=== PATIENT | female | born 1980 | race Caucasian/White ===

== ENCOUNTER 2020-12-11 14:53 | Outpatient (REF) | payer MEDICAID, SELFPAY ==
--- NOTE | ~2020-12-11 | MM_ITS ---
EXAMINATION: MM SCREENING DIGITAL BREAST TOMOSYNTHESIS, BILATERAL CLINICAL INFORMATION: Screening. Asymptomatic. No prior breast imaging. Age 40. No known family history breast cancer. The lifetime risk of breast cancer based on the Tyrer-Cuzick Model is 8%. COMPARISON: None (current study represents initial baseline exam). TECHNIQUE: Digital breast tomosynthesis is performed in both the craniocaudal and mediolateral oblique views along with computer-aided detection (CAD). Synthesized 2D images are generated from the tomosynthesis. FINDINGS: The breasts are heterogeneously dense, which may obscure small masses (ACR BI-RADS breast composition Category c). Breast tissue composition borders on extremely dense. There are no significant masses, abnormal calcifications, or other abnormalities. The skin contours are smooth. MM/MM tomosynthesis screening BI IMPRESSION: No mammographic evidence of malignancy. ASSESSMENT: BI-RADS 1: Negative RECOMMENDATION: Routine annual mammography screening. This patient's information was entered into a reminder system with a target due date for their next mammogram.
== END 2020-12-11 14:54 | disposition home or self-care (01) ==
LOC: HO.MAMMO 14:53
PROVIDERS: Visit Provider Nurse Practitioner
DX: Z12.31 Encounter for screening mammogram for malignant neoplasm of breast (principal)
CPT/HCPCS: 77063; 77067

== ENCOUNTER 2022-06-27 14:25 | Outpatient (REF) | payer MEDICAID, SELFPAY ==
--- NOTE | ~2022-06-27 | MM_ITS ---
EXAMINATION: MM DIAGNOSTIC DIGITAL BREAST TOMOSYNTHESIS, BILATERAL US DIAGNOSTIC ULTRASOUND AXILLA, RIGHT CLINICAL INFORMATION: 41-year-old with tender focal palpable fullness upper right axilla. Patient seen at urgent care Center and with coarse antibiotics. Some drainage with warm compresses. No known family history breast cancer. COMPARISON: Mammography: 12/11/2020 (baseline) TECHNIQUE: Digital breast tomosynthesis is performed in both the craniocaudal and mediolateral oblique views along with computer-aided detection (CAD). Synthesized 2D images are generated from the tomosynthesis. Additional upper right axillary view obtained with symptom marker. Ultrasound ultrasound right axillary is performed targeted to the area of clinical concern. Grayscale imaging and color Doppler are performed without and with harmonics. FINDINGS: The breasts are heterogeneously dense, which may obscure small masses (ACR BI-RADS breast composition Category c). Parenchymal pattern is similar to prior baseline exam and there is no interval mass or architectural abnormality or abnormal calcifications. The breast skin contours are smooth. No coarsening of the Elieser's ligaments. The lower axilla are unremarkable. Additional view upper right axilla demonstrates superficial oval mass approximately 2 cm in greatest dimension at site of palpable concern, approximately 19 cm from nipple. Margins are ill-defined. No gas tracking in soft tissues. Ultrasound right axilla demonstrates a heterogeneous hypoechoic mass at deep dermis with claw sign with skin suggesting intradermal lesion and measuring 2.2 x 1.0 x 1.7 cm. There is increased through-transmission of sound. Prominent surrounding vascularity is noted on color Doppler. Finding most likely represents inflamed sebaceous cyst/epidermal cyst. Results are discussed with the patient at time of visit. Patient is to continue with her provider's management plan and follow-up with primary care/urgent care. If finding is persistent or increasing, then consult with surgeon recommended for excision. MM/MM tomosynthesis diagnostic BI IMPRESSION: Right: -Deep dermal lesion upper right axilla 2.3 cm corresponding to palpable concern with prominent surrounding vascularity, likely inflamed sebaceous cyst/epidermal cyst. -Right breast otherwise unremarkable. Left: -No mammographic evidence of malignancy. ASSESSMENT: BI-RADS 2: Benign RECOMMENDATION: 1. Continue with primary care management. Follow-up with urgent care/primary care. If finding is persistent or increasing, then surgical consult should be considered for excision. 2. Otherwise, routine annual screening mammography. This patient's information was entered into a reminder system with a target due date for their next mammogram.
== END 2022-06-27 14:26 | disposition home or self-care (01) ==
LOC: HO.MAMMO 14:25
PROVIDERS: Visit Provider Emergency Medicine
DX: R22.31 Localized swelling, mass and lump, right upper limb (principal)
CPT/HCPCS: 76642; 77062; 77066

== ENCOUNTER 2023-12-10 18:23 | Outpatient (REF) | payer MEDICAID, SELFPAY | END 2023-12-10 18:24 | disposition home or self-care (01) | LOC: HO.HHCLNP 18:23 | PROVIDERS: Visit Provider Emergency Medicine | DX: M54.50 Low back pain, unspecified (principal) | CPT/HCPCS: 87086 ==

== ENCOUNTER 2023-12-11 14:37 | Outpatient (REF) | payer MEDICAID, SELFPAY ==
--- NOTE | ~2023-12-11 | XR_ITS ---
EXAMINATION: XR LUMBOSACRAL SPINE CLINICAL INFORMATION: Atraumatic left-sided low back pain starting one week ago. COMPARISON: None available. TECHNIQUE: AP and lateral views of the lumbar spine and lateral view of the lumbosacral junction. FINDINGS: Mild left convex curvature. No fracture or malalignment. Medially heights are normal. Small endplate osteophytes at multiple levels. Facet arthropathy is present at L4-L5. Bone mineralization is normal. IUD is present in the central pelvis. XR/XR lumbar spine 2-3V IMPRESSION: 1. No acute fracture in the lumbar spine. 2. Mild left convex lumbar scoliosis. 3. Facet arthropathy at L4-L5.
== END 2023-12-11 14:38 | disposition home or self-care (01) ==
LOC: HO.HHCX 14:37
PROVIDERS: Visit Provider Emergency Medicine
DX: M54.50 Low back pain, unspecified (principal)
CPT/HCPCS: 72100

== ENCOUNTER 2024-05-10 11:28 | Outpatient (REF) | payer MEDICAID, SELFPAY ==
[2024-05-10 14:07] LABS: Anion Gap 14 (12-20); Blood Urea Nitrogen 11 mg/dL (9-16); Calcium 9.6 mg/dL (8.4-10.2); Carbon Dioxide 28 mmol/L (22-29); Chloride 104 mmol/L (96-108); Estimated Glomerular Filt Rate > 60; Glucose Random 83 mg/dL (60-115); Potassium 3.5 mmol/L (3.3-5.1); Sodium 142 mmol/L (135-145)
== END 2024-05-10 11:29 | disposition home or self-care (01) ==
LOC: HO.HHCL 11:28
PROVIDERS: Visit Provider Emergency Medicine
DX: R03.0 Elevated blood-pressure reading, without diagnosis of hypertension (principal)
CPT/HCPCS: 36415; 80048

== ENCOUNTER 2024-07-14 08:57 | Outpatient (REF) | payer MEDICAID, SELFPAY ==
[2024-07-14] MEDS: Barium Sulfate Oral (Berry) 450 ML ORAL.SUSP 900 ML PO (11:17)
[2024-07-14] MEDS: iohexoL 350 MG/ML 100 ML INFUS..BTL 85 ML IV (11:49)
== END 2024-07-14 08:58 | disposition home or self-care (01) ==
LOC: HO.CT 08:57
PROVIDERS: Visit Provider Emergency Medicine
DX: R10.12 Left upper quadrant pain (principal)
CPT/HCPCS: 74177; Q9967

== ENCOUNTER → 2024-07-14 09:01 | Outpatient (BNV) | payer MEDICAID, SELFPAY | PROVIDERS: Visit Provider Radiology Diagnostic Radiology | DX: N83.202 Unspecified ovarian cyst, left side (principal); R16.0 Hepatomegaly, not elsewhere classified | CPT/HCPCS: 74177 ==

== ENCOUNTER 2024-10-11 11:22 | Outpatient (REF) | payer MEDICAID, SELFPAY ==
--- NOTE | ~2024-10-11 | US_ITS ---
CLINICAL HISTORY: 6 cm cystic lesion left adnexa. Dislodged intrauterine contraceptive device US pelvis transabdominal and transvaginal Comparison: 07/14/2024 CT Findings: Uterus measures 10 x 4.1 x 6.4 cm. Low-lying IUD located within the central portion of the lower endometrium (1 of the arms may be located in the subendometrial portion of the myometrium). Otherwise unremarkable myometrium. Endometrium 11 mm thickness. Right ovary 5.4 x 3.3 x 3.2 cm. 3.6 cm likely functional simple right ovarian cyst. 5.1 x 7 x 5.2 cm left adnexal (either paraovarian cyst or exophytic cyst arising from the left ovary) with questionable small eccentric nodular component on the cine clips. Left ovary (without the cyst) measures 0.3 x 2.4 x 1.5 cm. No free fluid. IMPRESSION: Low-lying IUD located within the central portion of the lower endometrium (1 of the arms may be located in the subendometrial portion of the myometrium). 5.1 x 7 x 5.2 cm left adnexal (either paraovarian cyst or exophytic cyst arising from the left ovary) with questionable small eccentric nodular component on the cine clips, corresponds to the cyst seen on the recent CT scan. Further evaluation with MRI recommended. This document has been electronically signed by: Nivia Medrano MD on 10/11/2024 12:40:15
--- OUTSIDE RECORDS SUMMARY | 2024-10-11 11:25 | XMS_ITS | Encounter Summary ---
Author Organization [email or web address] Address [address] [place] [address] Care Team Providers Care Senior Administrative Assistant Name Role Phone Hien Adamily JOSUÉ Primary Care Provider Encounter Details Date Type Department Care Team (Late st Contact Info) Description 09/14/2024 Telephone [facility] [address], [place] [phone] Trent Fang MD [address] [place], [place] [id number] Social History Tobacco Use Types Packs/Day Years Used Date Smoking Tobacco: Never Passive Smoke Exposure: Never Smokeless Tobacco: Never Alcohol Use Standard Drinks/Week Comments Never 0 (1 standard drink = 0.6 oz pur e alcohol) Housing Stability Answer Date Recorded What is your housing situation today? I have ritesh moctezuma 02/17/[address] you li ve. Do you have problems with any of the following? None of the above 02/17/2024 Food Insecurity Answer Date Recorded Within the past 12 months, y ou worried that your food would run out before you got money to buy more: Never True 02/17/2024 Within the past 12 months,th e food you bought just didn't last and you didn't have enough money to get more: Never True Transportation Answer Date Recorded In the past 12 months, has l ack of transportation kept you from medical appts, meetings, work or from getting things needed for daily living? No 02/17/2024 Utilities Answer Date Recorded In the past 12 months, has t he electric, gas, oil or water company threatened to shut off services in your home? No 02/17/2024 Depression Answer Date Recorded Patient Health Questionnaire-2 Score 0 08/20/2022 Internet Access Answer Date Recorded Internet Access Q1 Yes 04/26/2024 Internet Access Q2 Not on file 04/26/2024 Comments Unknown Sex and Gender Information Value Date Recorded Sex Assigned at Female 06/24/2022 10:20 AM EDT Legal Sex Female 10:20 AM EDT Gender Identity Female 06/24/2022 10:20 AM EDT Sexual Orientation Straight 06/24/2022 10 :20 AM EDT documented as of this encounter Miscellaneous Notes * Telephone Encounter - Regina Snell RN - 09/14/2024 5:35 PM EST Images from the original note were not included. TC placed to pt, utilizing [employer] ID: [id number], regarding messages below per Dr. Fang. Pt verbalized understanding and reports she knew she had a cyst but never had follow up. Pt reports she is no longer followed by a COAL TRIMMER MACHINE OPERATOR and agrees to referral with [facility] staff Marissa once US results are back. Pt agrees to go to lab and have urine completed. Pt verbalized understanding regarding referral to GI and reports came for appt with doctor but it was cancelled and never heard back. RN informed high priority message would be sent to appropriate libertarian regarding TP appt for follow upcare. Pt verbalized understanding. No further questions or concerns expressed at this time. Pt to F/ U as needed. RN will forward message to Dr. Fang regarding COAL TRIMMER MACHINE OPERATOR referral and to [facility] Stephany Zamorano regarding TP appt. ----- Message from Trent Fang MD sent at 09/14/2024 4:31 PM EST ----- Please notify [employer] that her abd/pelvis CT scan report was just received (CT scan was done 07/14/2024), read as left ovarian cyst and dislodged IUD in a lower position. I spoke with Marissa Gibson who recommended pelvic US and referral back to her COAL TRIMMER MACHINE OPERATOR who insertedthe IUD. If she has no COAL TRIMMER MACHINE OPERATOR, she'll be referred to Marissa after US results are back. US is ordered. Could she also go to [facility] to give CCMS for urine C&S? Thanks. Aravind Fang MD [facility] Could you also let [employer] know that the CT scan was read a fatty liver, and I'm sending a referralto GI. She has never seen her current PCP (Cassie Adam), and last former PCP visit was January 2023. Could you schedule a transfer patient visit with Cassie? Thanks. Aravind documented in this encounter Plan of Treatment Upcoming Encounters Date Type Department Care Team (Late st Contact Info) Description 11/30/2024 11:00 AM EDT Office Visit [facility] [address], [place] [phone] Cassie Adam NP [address] [place] [address] documented as of this encounter Visit Diagnoses Not on filedocumented in this encounter Care Teams Senior Administrative Assistant Relationship Specialty Start Date End Date Cassie Adam NP [address] [place] [address] PCP - General Family Medicine 10/06/23 documented as of this encounter
--- OUTSIDE RECORDS SUMMARY | 2024-10-11 11:25 | XMS_ITS | Encounter Summary ---
Author Organization [facility] Address [address] [place] [address] [address] [place] [address] Care Team Providers Care Health Specialist Name Role Phone Nehal Bailey [employer]ER MILL TENDER Primary Care Provider [phone] Cassie Adam NP Primary Care Provider [phone] Encounter Details Date Type Department Care Team (Late st Contact Info) Description 08/20/2022 Abstract [facility] [address] [place] [address] [phone] Nehal Bailey FNP [address] [place] [address] [place] [address] Social History Tobacco Use Types Packs/Day Years Used Date Smoking Tobacco: Never Passive Smoke Exposure: Never Smokeless Tobacco: Never Alcohol Use Standard Drinks/Week Comments Never 0 (1 standard drink = 0.6 oz pur e alcohol) Depression Answer Date Recorded Patient Health Questionnaire-2 Score 0 08/20/2022 Comments Unknown Sex and Gender Information Value Date Recorded Sex Assigned at Female 06/24/2022 10:20 AM EDT Legal Sex Female 10:20 AM EDT Gender Identity Female 06/24/2022 10:20 AM EDT Sexual Orientation Straight 06/24/2022 10 :20 AM EDT COVID-19 Exposure Response Date Recorded In the last 10 days, have yo u been in contact with someone who was confirmed or suspected to have Coronavirus/COVID-19? No / Unsure 08/20/2022 1:00 PM EST documented as of this encounter Plan of Treatment Upcoming Encounters Date Type Department Care Team (Late st Contact Info) Description 11/30/2024 11:00 AM EDT Office Visit [facility] [address] [place] [phone] Cassie Adam NP [address] [place] [address] documented as of this encounter Visit Diagnoses Not on filedocumented in this encounter Care Teams Health Specialist Relationship Specialty Start Date End Date Nehal Bailey FNP PCP - General Family Medicine 03/03/22 05/29/23 Cassie Adam NP [address] [place] [address] PCP - General Family Medicine 10/06/23 documented as of this encounter
--- OUTSIDE RECORDS SUMMARY | 2024-10-11 11:25 | XMS_ITS | Clinical Summary ---
Author Organization [employer] Address [address] [place] [address] Care Team Providers Care Word Processor Name Role Phone KiaCassie JOSUÉ Primary Care Provider [phone] Allergies No known active allergies Medications ibuprofen 400 MG tablet Take 1 tablet by mouth in the morning and 1 tablet at noon and 1 tablet in the evening and 1 tablet before bedtime. 2 Active fluticasone (Flonase) 50 MCG/ACT nasal spray Administer 1-2 sprays into affected nostril(s) at bed time. 2 Active acetaminophen (Tylenol) 500 MG tablet Take 2 tablets by mouth in the morning and 2 tablets at noon and 2 tablets in the evening and 2 tablets before bedtime. 2 Active triamcinolone (Kenalog) 0.1 % creamIndication s:Chronic eczema of hand Apply topically if needed in the morning and at bedtime (eczema, hands). Mix tube with container of CeraVe Moisturizing Cream 80 g 1 2 Active acetaminophen (Tylenol) 500 MG tablet Take 2 tablets (1,000 mg) by mouth every 6 (six) hours if needed for moderate pain or fever for up to 25 doses. 50 tablet 4 Active tiZANidine (Zanaflex) 2 MG tablet Take 1 tablet (2 mg) by mouth every 8 (eight) hours if needed for muscle spasms for up to 10 days. 30 tablet 4 Active losartan (Cozaar) 50 MG tablet Take 1 tablet (50 mg) by mouth Once per day. 30 tablet 5 4 05/10/20 25 Active ibuprofen 400 MG tablet Take 1 tablet (400 mg) by mouth every 6 (six) hours if needed for moderate pain or fever for up to 30 doses. 30 tablet 4 Active Active Problems Problem Noted Date Diagnosed Date Hepatomegaly 09/14/2024 Hepatic steatosis 09/14/2024 Preseptal cellulitis of right upper eyelid 01/03 Assessment & Plan (01/03/2023 10:49 AM EDT): Pt w 2 days of eye discomfort and possible had a hordeolum initially w nodular sensation in upper eyelid and woke up this am with right upper eyelid swelling and eye discharge w no concerning systemic symptoms. Denies photofobia, blurry vision , normal PERRLA and EOMI w no pain w eye movements and no pain with eye palpation. No cervical or preauricular LNs Seems orbital infection is unlikely and symptoms are suggestive of preseptal cellulitis -start Augmentin BID x 10 days and ophthalmic ATB -tylenol prn x mild pain and NSAIDS x mod pain-has at home -come at her already schedule apt w her PCP in 5 days to monitor eye -alarm signs and symptoms explained in length to pt in case no improvement of symptoms in next 24 to 48 hours To go to ED Elevated blood pressure reading 01/03/2023 Assessment & Plan (01/03/2023 10:47 AM EDT): Noted elevated BP today at 157/95 and before as well Pt reports she is taking BP at home and never > 140/90 -Advised pt to check daily BP at home and bring readings to her PCP-has apt in 1 week w PCP ( 01/08/2023) -Possible reactive today? Chronic eczema of hand 06/04/2020 Dysmenorrhea 06/04/2020 Encounters Date Type Department Care Team Description 09/14/2024 Telephone [facility] [address], [place] [id number] Trent Ventura MD 09/14/2024 Orders Only [facility] [address] [place] [address] Trent Ventura MD Abnormal CT scan, pelvis (Primary Dx); Left flank pain; Hepatomegaly; Hepatic steatosis from Last 3 Months Immunizations Name Administration Dates Next Due Ashwini Covid-19 Vaccine 12+ 01/13/2021,12/17/19 21 Social History Tobacco Use Types Packs/Day Years [...] Orientation Straight 06/24/2022 10 :20 AM EDT Last Filed Vital Signs Vital Sign Reading Time Taken Comments Blood Pressure 166/103 05/10/2024 9:48 AM EDT Pulse 84 05/10/2024 9:48 AM EDT Temperature 36.6 ??C (97.8 ??F) 05/10/2024 9:48 AM ED T Respiratory Rate 17 05/10/2024 9:48 AM EDT Oxygen Saturation 99% 05/10/2024 9:48 AM EDT Inhaled Oxygen Concentration - - Weight 90.4 kg (199 lb 3.2 oz) 05/10/2024 9:48 A M EDT Height 157.5 cm (5' 2 ) 12/10/2023 5:27 PM EDT Body Mass Index 36.43 12/10/2023 5:27 PM EDT Plan of Treatment Upcoming Encounters Date Type Department Care Team (Late st Contact Info) Description 11/30/2024 11:00 AM EDT Office Visit [facility] [address] [place] [address] Cassie Adam, JOSUÉ [address] [place] [address] Health Maintenance Due Date Last Done Comments Alcohol/Substance Use Screening 1992 Family Planning (PISQ) 1995 DTaP/Tdap/Td Vaccines (1 - Tdap) 1999 Hepatitis A Vaccines (1 of 2 - Risk 2-dose series) 1999 Hepatitis B Vaccines (1 of 3 - 19+ 3-dose series) 1999 Pap Smear 2001 Cervical Cancer Screening 2010 HPV/Cotest 2010 Depression Screening 08/20/2023 08/20/2022, 08/20/20 COVID-19 Vaccine ( season) 2024 01/13/2021, 12/16/2020 Influenza Vaccine (#1) 2024 Mammogram 06/27/2024 06/27/2022, 11/0 10/2021, 06/27/2022, Additional history exists SDOH Screening 02/16/2025 02/17/2024 Tobacco Screening 05/10/2025 05/10/2024 Zoster Vaccines (1 of 2) 2030 RSV Patients and Patients Aged 60 years or older (1 - 1-dose 75+ series) 2055 HIV Screening Completed 02/07/2023 Hepatitis C Screening Completed 02/07/2023 HIB Vaccines Aged Out No longer eligi ble based on patient's age to complete this topic HPV Vaccines Aged Out No longer eligi ble based on patient's age to complete this topic IPV Vaccines Aged Out No longer eligi ble based on patient's age to complete this topic Meningococcal Vaccine Aged Out No brandy giuliana eligible based on patient's age to complete this topic Pneumococcal Vaccine: Pediatrics (0 to 5 Years) and At-Risk Patients (6 to 49) Years) Aged Out No longer eligible based on patient's age to complete this topic RSV under 20 months Aged Out No longe r eligible based on patient's age to complete this topic Rotavirus Vaccines Aged Out No longer eligible based on patient's age to complete this topic Procedures Procedure Name Priority Date/Time Associated Diagnosis Comments CT ABDOMEN PELVIS W CONTRAST Routine 07/14/2024 11:31 AM EST LUQ pain Left flank pain HEPATITIS C AB W/REFL TO HCV RNA, QN, PCR Routine 02/07/2023 10:04 AM EDT Health care maintenance HIV 1/2 ANTIGEN/ANTIBODY, FOURTH GENERATION W/RFL Routine 02/07/2023 10:04 AM EDT Health care maintenance BI US BREAST LIMITED RIGHT Routine 06/27/2022 3:25 PM EDT from Last 3 Months or Most Recently Relevant to Health Maintenance Results * CT Abdomen Pelvis w/ Contrast (07/14/2024 11:31 AM EST) Anatomical Region Laterality Modality Body, Pelvis, Abdomen Computed T omography 07/14/2024 11:3 1 AM EST Narrative 09/10/2024 11:14 AM EST ? [facility] ?[address] ?[place] [address] ? CT Scan Report ? Signed ? Patient: Apple Schwab ?MR#: M ?? [id number] ? : 1980 ?Acct:[id number] ? Age/Sex: 43 / F ?ADM Date: 11/20/24 ? Loc: HO.CT ? Attending Dr: Trent Ventura MD ? Ordering Physician: TRENT VENTURA MD ?? Date of Service: 07/14/24 ?? Procedure(s): CT abdomen pelvis w IV con ?? Accession Number(s): [id number] ? cc: TRENT VENTURA MD ? Report Number: ?? [id number]: Total DLP = ??482.00 mGy-cm ?? EXAMINATION: ?? CT ABDOMEN AND PELVIS WITH CONTRAST ? CLINICAL INFORMATION: ?? Left upper quadrant pain. ?? Left flank pain. ? COMPARISON: ?? None available. ? TECHNIQUE: ?? Multidetector volumetric images were obtained from the superior aspect ?? of the liver through the pubic symphysis following administration 85 mL ?? of Omnipaque 350 intravenous contrast. Sagittal and coronal reformatted ?? images were obtained on the technologist's workstation. ? Oral contrast: 450 cc ? This CT examination was performed using dose optimization techniques as ?? appropriate, variously including the following: ?? *Automated exposure control ?? *Adjustment of mA and/or kV according to patient size (this includes ?? techniques or standardized protocols for targeted exams where dose is ?? matched to indication/reason for exam; i.e. extremities or head) ?? *Use of iterative reconstruction technique ? DLP: 482 mGy-centimeter. ? FINDINGS: ? Submitted for interpretation on September 10, 2024. ? LUNG BASES: No acute airspace disease in the included lungs. ? LIVER, GALLBLADDER, AND BILIARY TREE: ? Liver measures 17 cm with decreased enhancement pattern. Subcentimeter ?? hypodensity in the periphery of the right hepatic lobe adjacent to the ?? falciform ligament. Punctate calcification right hepatic lobe. ?? Portal veins, hepatic veins and intrahepatic portion of the IVC are ?? patent. ?? Gallbladder is fluid-filled nondistended without pericholecystic fluid ?? collection or gallbladder wall thickening. ?? No intrahepatic or extrahepatic biliary ductal dilatation. ? PANCREAS: No focal mass. No main pancreatic ductal dilatation. No ?? peripancreatic fluid collections. ? SPLEEN: 10 cm. No focal lesion. ? ADRENAL GLANDS: No nodular lesions. ? KIDNEYS AND URETERS: ? No hydronephrosis. ?? No gross nephrolithiasis. ?? No enhancing lesion. ? BLADDER: Fluid-filled. ? GASTROINTESTINAL TRACT: ? Abundant stool within the large intestine. Collapsed appearance of the ?? left hemicolon. ?? No intestinal obstruction pattern. ?? Terminal ileum is normal. ?? Appendix is normal and retrocecal. ? ABDOMINAL WALL: Small tiny fat-containing umbilical hernia. ? LYMPH NODES: Nonspecific prominent lymph nodes, retroperitoneum. ? VASCULAR: No aneurysm or dissection abdominal aorta. ? PELVIC VISCERA: There is a 6 cm ovoid shaped fluid density lesion in ?? the left adnexa. ?? There is a T-shaped contraceptive device in a lower position of the ?? uterine cavity extending near the cervix. ? OSSEOUS STRUCTURES: Mild multilevel thoracolumbar spondylosis with a ?? levoconvex curvature apex at L3-4. Rudimentary ribs at T12. ? CT/CT abdomen pelvis w IV con ?? IMPRESSION: ?? 6 cm cystic lesion left adnexa. ?? Dislodged intrauterine contraceptive device in a lower position towards ?? the cervix. ?? Hepatomegaly and steatosis. ? Fleischner guidelines were followed. ? Electronically signed by: ??Deshaun Calixto MD ??09/10/2024 11:12 AM ?? EST RP ? Dictated By: ?Deshaun Snell MD ? Signed By: ?<Electronically signed by Deshaun Lawrence MD in OV> ? 09/10/24 1112 ? DD/ 1131 ? TD/TT: 07/14/24 1149 ? Senior Media Director: ? Procedure Note Jerson, Jeremiah - 09/10/[address] [place] [address] [address] Scan Report Signed Patient: Figueroa Schwab#: M [id number] : 1980Acct:[id number] Age/Sex: 43 / FADM Date: 07/14/24 Loc: HO.CT Attending Dr: Trent Ventura MD Ordering Physician: TRENT VENTURA MD Date of Service: 07/14/24 Procedure(s): CT abdomen pelvis w IV con Accession Number(s): [id number] cc: TRENT VENTURA MD Report Number: [id number]: Total DLP = 482.00 mGy-cm EXAMINATION: CT ABDOMEN AND PELVIS WITH CONTRAST CLINICAL INFORMATION: Left upper quadrant pain. Left flank pain. COMPARISON: None available. TECHNIQUE: Multidetector volumetric images were obtained from the superior aspect of the liver through the pubic symphysis following administration 85 mL of Omnipaque 350 intravenous contrast. Sagittal and coronal reformatted images were obtained on the technologist's workstation. Oral contrast: [address] examination was performed using dose optimization techniques as appropriate, variously including the following: *Automated exposure control *Adjustment of mA and/or kV according to patient size (this includes techniques or standardized protocols for targeted exams where dose is matched to indication/reason for exam; i.e. extremities or head) *Use of iterative reconstruction technique DLP: 482 mGy-centimeter. FINDINGS: Submitted for interpretation on September 10, 2024. LUNG BASES: No acute airspace disease in the included lungs. LIVER, GALLBLADDER, AND BILIARY TREE: Liver measures 17 cm with decreased enhancement pattern. Subcentimeter hypodensity in the periphery of the right hepatic lobe adjacent to the falciform ligament. Punctate calcification right hepatic lobe. Portal veins, hepatic veins and intrahepatic portion of the IVC are patent. Gallbladder is fluid-filled nondistended without pericholecystic fluid collection or gallbladder wall thickening. No intrahepatic or extrahepatic biliary ductal dilatation. PANCREAS: No focal mass. No main pancreatic ductal dilatation. No peripancreatic fluid collections. SPLEEN: 10 cm. No focal lesion. ADRENAL GLANDS: No nodular lesions. KIDNEYS AND URETERS: No hydronephrosis. No gross nephrolithiasis. No enhancing lesion. BLADDER: Fluid-filled. GASTROINTESTINAL TRACT: Abundant stool within the large intestine. Collapsed appearance of the left hemicolon. No intestinal obstruction pattern. Terminal ileum is normal. Appendix is normal and retrocecal. ABDOMINAL WALL: Small tiny fat-containing umbilical hernia. LYMPH NODES: Nonspecific prominent lymph nodes, retroperitoneum. VASCULAR: No aneurysm or dissection abdominal aorta. PELVIC VISCERA: There is a 6 cm ovoid shaped fluid density lesion in the left adnexa. There is a T-shaped contraceptive device in a lower position of the uterine cavity extending near the cervix. OSSEOUS STRUCTURES: Mild multilevel thoracolumbar spondylosis with a levoconvex curvature apex at L3-4. Rudimentary ribs at T12. CT/CT abdomen pelvis w IV con IMPRESSION: 6 cm cystic lesion left adnexa. Dislodged intrauterine contraceptive device in a lower position towards the cervix. Hepatomegaly and steatosis. Fleischner guidelines were followed. Electronically signed by: Deshaun Calixto MD 09/10/2024 11:12 AM EST Dictated By: Deshaun Snell MD Signed By: <Electronically signed by Deshaun Lawrence MDin OV> 09/10/24 1112 DD/ 1131 TD/TT: 07/14/24 1149 Senior Media Director: Trent Ventura MD IMG CT PROCEDURES Edited Result - Final * Hepatitis C Antibody with Reflex to HCV, RNA, Quantitative, Real-Time PCR (02/07/2023 10:04 AM EDT) Hepatitis C Antibody NON-REACT MIRA NON-REACT MIRA [employer] Index <0.02 <1.00 [employer] Comment: HCV antibody was non-reactive. There is no laboratory evidence of HCV infection. In most cases, no further action is required. However, if recent HCV exposure is suspected, a test for HCV RNA (test code 58840) is suggested. For additional information please refer to http://education.Looker/faq/IFE44v7 (This link is being provided for informational/ educational purposes only.) Blood Venous blood specimen / Unknown 02/07/2023 10:04 AM EDT 02/07/2023 10:04 AM EDT Narrative [facility] - 02/17/2023 6:29 PM EDT FASTING:YES FASTING: YES Nehal Bailey [employer] LAB BLOOD ORDERABLES Final Result [facility] [address], [place] [address] [employer] [place] [address] [place] [address] * HIV-1/2 Antigen and Antibodies, Fourth Generation, with Reflexes (02/07/2023 10:04 AM EDT) HIV Antigen/Antibody, 4th Generation NON-REAC TIVE NON-REAC TIVE [employer] Comment: HIV-1 antigen and HIV-1/HIV-2 antibodies were not detected. There is no laboratory evidence of HIV infection. PLEASE NOTE: This information has been disclosed to you from records whose confidentiality may be protected by state law. ??If your state requires such protection, then the state law prohibits you from making any further disclosure of the information without the specific written consent of the person to whom it pertains, or as otherwise permitted by law. A general authorization for the release of medical or other information is NOT sufficient for this purpose. ?? For additional information please refer to http://education.Looker/faq/RVQ986 (This link is being provided for informational/ educational purposes only.) The performance of this assay has not been clinically validated in patients less than 2 years old. Blood Venous blood specimen / Unknown 02/07/2023 10:04 AM EDT 02/07/2023 10:04 AM EDT Narrative [facility] - 02/17/2023 6:29 PM EDT FASTING:YES FASTING: YES Nehal Bailey [employer] LAB BLOOD ORDERABLES Final Result [facility] [address], [place] [address] [employer] [place] [address] [place] [address] * BI US Breast Limited Right (06/27/2022 3:25 PM EDT) Anatomical Region Laterality Modality Breast Right Ultrasound 06/27/2022 3:25 PM EDT Narrative 09/20/2022 2:34 PM EST ? [facility] [place] ? [address] ?[place] [address] ? Ultrasound Report ? Signed with Addenda ? Patient: Joshua,Apple ?MR#: [id number] ?? [id number] ? : 1980 ?Acct:[id number] ? Age/Sex: 41 / F ?ADM Date: 06/27/22 ? Loc: HO.MAMMO ? Attending Dr: Trent Ventura MD ? Ordering Physician: TRENT VENTURA MD ?? Date of Service: 06/27/22 ?? Procedure(s): US breast RT limited ?? Accession Number(s): [id number] ? cc: TRENT VENTURA MD ?ADDENDUM ?? ADDENDUM: ?? Results and recommendation called to medical claims specialist (Kaylee) for Dr. ?? Leoncio on 06/28/2022. ? Addendum Dictated By: ?Luis Chen MD ? Addendum Signed By: ? <Electronically signed by Luis Chen MD in OV> ?06/28/22 1503 ?? Addendum Cosigned By: ? DD/ /13/1499 ? TD/TT: / ? EXAMINATION: ?? MM DIAGNOSTIC DIGITAL BREAST TOMOSYNTHESIS, BILATERAL ?? US DIAGNOSTIC ULTRASOUND AXILLA, RIGHT ? CLINICAL INFORMATION: ? 41-year-old with tender focal palpable fullness upper right axilla. ?? Patient seen at urgent care Center and with coarse antibiotics. Some ?? drainage with warm compresses. No known family history breast cancer. ? COMPARISON: ?? Mammography: 12/11/2020 (baseline) ? TECHNIQUE: ?? Digital breast tomosynthesis is performed in both the craniocaudal and ?? mediolateral oblique views along with computer-aided detection (CAD). ?? Synthesized 2D images are generated from the tomosynthesis. ??Additional ?? upper right axillary view obtained with symptom marker. ? Ultrasound ultrasound right axillary is performed targeted to the area ?? of clinical concern. Grayscale imaging and color Doppler are performed ?? without and with harmonics. ? FINDINGS: ?? The breasts are heterogeneously dense, which may obscure small masses ?? (ACR BI-RADS breast composition Category c). ? Parenchymal pattern is similar to prior baseline exam and there is no ?? interval mass or architectural abnormality or abnormal calcifications. ?? The breast skin contours are smooth. No coarsening of the Elieser's ?? ligaments. The lower axilla are unremarkable. ? Additional view upper right axilla demonstrates superficial oval mass ?? approximately 2 cm in greatest dimension at site of palpable concern, ?? approximately 19 cm from nipple. Margins are ill-defined. No gas ?? tracking in soft tissues. ? Ultrasound right axilla demonstrates a heterogeneous hypoechoic mass at ?? deep dermis with claw sign with skin suggesting intradermal lesion and ?? measuring 2.2 x 1.0 x 1.7 cm. There is increased through-transmission ?? of sound. Prominent surrounding vascularity is noted on color Doppler. ?? Finding most likely represents inflamed sebaceous cyst/epidermal cyst. ? Results are discussed with the patient at time of visit. Patient is to ?? continue with her provider's management plan and follow-up with primary ?? care/urgent care. If finding is persistent or increasing, then consult ?? with surgeon recommended for excision. ? US/US breast RT limited ?? IMPRESSION: ?? Right: ?? -Deep dermal lesion upper right axilla 2.3 cm corresponding to palpable ?? concern with prominent surrounding vascularity, likely inflamed ?? sebaceous cyst/epidermal cyst. ?? -Right breast otherwise unremarkable. ? Left: ?? -No mammographic evidence of malignancy. ? ASSESSMENT: ? BI-RADS 2: Benign ? RECOMMENDATION: ?? 1. Continue with primary care management. Follow-up with urgent ?? care/primary care. If finding is persistent or increasing, then ?? surgical consult should be considered for excision. ? 2. Otherwise, routine annual screening mammography. ? This patient's information was entered into a reminder system with a ?? target due date for their next mammogram. ? Dictated By: ?Luis Chen MD ? Signed By: ?<Electronically signed by Luis Chen MD in OV> ?06/27/22 1650 ? DD/ 1525 ? TD/TT: ? Senior Media Director: DAVILA ? Procedure Note Jerson, Image - 09/20/2022 [facility] [address] [place] [address] Dr. Dela Cruz, JOSUE [address] Ultrasound Report Signed with Crystal Patient: Figueroa Lewis#: [id number] : 1980Acct:[id number] Age/Sex: 41 / FADM Date: 06/27/22 Loc: [facility] Attending Dr: Trent Ventura MD Ordering Physician: TRENT VENTURA MD Date of Service: 06/27/22 Procedure(s): US breast RT limited Accession Number(s): [id number] cc: TRENT VENTURA MD ADDENDUM ADDENDUM: Results and recommendation called to medical claims specialist (Kaylee) for Dr. Ventura on 06/28/2022. Addendum Dictated By: Luis Chen MD Addendum Signed By: <Electronically signed by Luis Kenney MD in OV> 06/28/22 1503 Addendum Cosigned By: DD/ /13/1499 TD/TT: / EXAMINATION: MM DIAGNOSTIC DIGITAL BREAST TOMOSYNTHESIS, BILATERAL US DIAGNOSTIC ULTRASOUND AXILLA, RIGHT CLINICAL INFORMATION: 41-year-old with tender focal palpable fullness upper right axilla. Patient seen at urgent care Center and with coarse antibiotics. Some drainage with warm compresses. No known family history breast cancer. COMPARISON: Mammography: 12/11/2020 (baseline) TECHNIQUE: Digital breast tomosynthesis is performed in both the craniocaudal and mediolateral oblique views along with computer-aided detection (CAD). Synthesized 2D images are generated from the tomosynthesis. Additional upper right axillary view obtained with symptom marker. Ultrasound ultrasound right axillary is performed targeted to the area of clinical concern. Grayscale imaging and color Doppler are performed without and with harmonics. FINDINGS: The breasts are heterogeneously dense, which may obscure small masses (ACR BI-RADS breast composition Category c). Parenchymal pattern is similar to prior baseline exam and there is no interval mass or architectural abnormality or abnormal calcifications. The breast skin contours are smooth. No coarsening of the Elieser's ligaments. The lower axilla are unremarkable. Additional view upper right axilla demonstrates superficial oval mass approximately 2 cm in greatest dimension at site of palpable concern, approximately 19 cm from nipple. Margins are ill-defined. No gas tracking in soft tissues. Ultrasound right axilla demonstrates a heterogeneous hypoechoic mass at deep dermis with claw sign with skin suggesting intradermal lesion and measuring 2.2 x 1.0 x 1.7 cm. There is increased through-transmission of sound. Prominent surrounding vascularity is noted on color Doppler. Finding most likely represents inflamed sebaceous cyst/epidermal cyst. Results are discussed with the patient at time of visit. Patient is to continue with her provider's management plan and follow-up with primary care/urgent care. If finding is persistent or increasing, then consult with surgeon recommended for excision. US/US breast RT limited IMPRESSION: Right: -Deep dermal lesion upper right axilla 2.3 cm corresponding to palpable concern with prominent surrounding vascularity, likely inflamed sebaceous cyst/epidermal cyst. -Right breast otherwise unremarkable. Left: -No mammographic evidence of malignancy. ASSESSMENT: BI-RADS 2: Benign RECOMMENDATION: 1. Continue with primary care management. Follow-up with urgent care/primary care. If finding is persistent or increasing, then surgical consult should be considered for excision. 2. Otherwise, routine annual screening mammography. This patient's information was entered into a reminder system with a target due date for their next mammogram. Dictated By: Luis Chen MD Signed By: <Electronically signed by Luis Chen MD in OV> 06/27/22 1650 DD/ 1525 TD/TT: Senior Media Director: [facility] External Provider IMG US PROCEDURES Edited Result - Final from Last 3 Months or Most Recently Relevant to Health Maintenance Insurance [facility] C3 Care Teams Word Processor Relationship Specialty Start Date End Date Cassie Adam NP [address] [place] [phone] PCP - General Family Medicine 10/06/23
--- OUTSIDE RECORDS SUMMARY | 2024-10-11 11:25 | XMS_ITS | Encounter Summary ---
Author Organization [facility] Address [address] [facility] 7t [place] [address] Care Team Providers Care Social Staff Worker Name Role Phone Kia Cassie JOSUÉ Primary Care Provider [phone] Reason for Referral * Consultation (Routine) - Authorized Specialty Diagnoses / Procedures Referred By Danielle reynolds Referred To Contact Gastroenterology Diagnoses Hepatomegaly Hepatic steatosis Trent Fang MD [address] [place] [address] Phone: tel: fax: [address] Phone: tel: fax: Referral ID Status Reason Start Date Expiration Date Visits Requested Visits Authorized [id number] Authorized Specialty Services Required 09/14/2024 09/14/2025 6 6 * Imaging (Urgent) - Authorized Specialty Diagnoses / Procedures [facility] Referred To Contact Radiology Diagnoses Abnormal CT scan, pelvis Procedures US Pelvis Transvaginal Trent Fang MD [address] [place] [address] Phone: tel: fax: [address] Phone: tel: fax: Referral ID Status Reason Start Date Expiration Date V isits Requested Visits Authorized [id number] Authorized 09/14/2024 09/14/2025 1 1 * Imaging (Urgent) - Authorized Specialty Diagnoses / Procedures Referred By Contac t Referred To Contact Radiology Diagnoses Abnormal CT scan, pelvis Procedures Us Pelvis complete Trent Fang MD [address] [place] [address] Phone: tel: fax: [facility] [address] [place] [address] Phone: tel: fax: Referral ID Status Reason Start Date Expiration Date V isits Requested Visits Authorized [id number] Authorized 09/14/2024 09/14/2025 1 1 Encounter Details Date Type Department Care Team (Late st Contact Info) Description 09/14/2024 Orders Only [facility] [address] [place] [address] [phone] Trent Fang MD [address] [place], [place] [phone] Abnormal CT scan, pelvis (Primary Dx); Left flank pain; Hepatomegaly; Hepatic steatosis Social History Tobacco Use Types Packs/Day Years [...] AM EDT documented as of this encounter Plan of Treatment Upcoming Encounters Date Type Department Care Team (Late st Contact Info) Description 11/30/2024 11:00 AM EDT Office Visit [facility] [address] [place] [address] Cassie Adam NP 230 [place] [address] Scheduled Orders Name Type Priority Associated Diagnoses Orde r Schedule Us Pelvis complete Imaging Urgent Abnormal CT scan, pelvis Expected: 09/14/2024, Expires: 09/14/2025 US Pelvis Transvaginal Imaging Urgent Abnormal CT scan, pelvis Expected: 09/14/2024, Expires: 09/14/2025 Culture, Urine, Routine Microbiology Routine Left flank pain Expected: 09/14/2024 (Approximate), Expires: 09/14/2025 Scheduled Referrals Name Type Priority Associated Diagnoses Order Schedule Referral to Gastroenterology Outpatient Referral Routine Hepatomegaly Hepatic steatosis Expected: 09/14/2024 (Approximate), Expires: 09/14/2025 documented as of this encounter Visit Diagnoses Diagnosis Abnormal CT scan, pelvis- Primary Left flank pain Abdominal pain, unspecified site Hepatomegaly Hepatic steatosis Other chronic nonalcoholic liver disease documented in this encounter Care Teams Social Staff Worker Relationship Specialty Start Date End Date Cassie Adam NP [address] [place] [address] PCP - General Family Medicine 10/06/23 documented as of this encounter
== END 2024-10-11 11:23 | disposition home or self-care (01) ==
LOC: HO.US 11:22
PROVIDERS: Visit Provider Emergency Medicine
DX: R93.5 Abnormal findings on diagnostic imaging of other abdominal regions, including retroperitoneum (principal)
CPT/HCPCS: 76830; 76856

== ENCOUNTER → 2024-10-11 11:24 | Outpatient (BNV) | payer MEDICAID, SELFPAY | PROVIDERS: Visit Provider Radiology Diagnostic Radiology | DX: N83.202 Unspecified ovarian cyst, left side (principal) | CPT/HCPCS: 76830; 76856 ==

== ENCOUNTER 2024-10-30 12:42 | Outpatient (REF) | payer MEDICAID, SELFPAY ==
--- NOTE | ~2024-10-30 | MR_ITS ---
EXAMINATION: MR PELVIS WITHOUT THEN WITH IV CONTRAST HISTORY: ADNEXAL CYST. TECHNIQUE: Axial T1, axial fat suppressed T2, and sagittal and coronal T2-weighted MR images of the pelvis were obtained. Subsequently, axial fat-suppressed T1-weighted images were obtained before and after the intravenous administration of 9 mm Gadavist. Postcontrast sagittal fat-suppressed T1-weighted images were also obtained. COMPARISON: Correlation is made with a pelvic ultrasound dated 10/11/[address] of the pelvis dated 07/14/2024. FINDINGS: There is a 9 mm subserosal fibroid at the fundus of the uterus. There are multiple nabothian cysts in the cervix. An IUD is noted in the lower uterine segment. The right ovary measures 1.3 x 2.5 x 3.1 cm and is unremarkable in appearance, demonstrating multiple small follicles. There is a 7.1 x 5.2 x 4.9 cm cystic structure in the left adnexa which appears to be arising from the ovary. There is a thin septation at the posterior aspect of the cyst and mild wall thickening and enhancement at the lateral aspect of the cyst. No internal nodular components are identified. The remainder of the ovary measures 3.1 x 2.1 x 2.3 cm and demonstrates multiple follicles. The urinary bladder is collapsed. There is no pelvic lymphadenopathy or significant free fluid. The visualized bones demonstrate normal signal intensity. MR/MR pelvis wo/w con IMPRESSION: 1. 7.1 x 5.2 x 4.9 cm left adnexal cyst which appears to be arising from the ovary. There is a thin posterior septation and mild wall thickening and enhancement of the lateral wall. Neoplasm is not excluded, and laparoscopy should be considered. 2. 9 mm subserosal fibroid. IUD in the lower uterine segment. Electronically signed by: Bola Wills MD 11/02/2024 07:33 AM EDT
--- OUTSIDE RECORDS SUMMARY | 2024-10-30 12:48 | XMS_ITS | Encounter Summary ---
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 Encounter Details Date Type Department Care Team (Latest Contact Info) Description 10/26/2024 9:00 AM EST Office Visit [facility] [address] [place], [place] [phone] Marissa Gibson CNM [address] [place], [place] [phone] Mechanical breakdown of intrauterine contraceptive device, subsequent encounter (Primary Dx); Ovarian mass, left Social History Tobacco Use Types Packs/Day Years [...] Access Q2 Not on file 04/26/2024 Comments No Sex and Gender Information Value Date Recorded Sex Assigned at Female 06/24/2022 10:20 AM EDT Legal Sex Female 10:20 AM EDT Gender Identity Female 06/24/2022 10:20 AM EDT Sexual Orientation Straight 06/24/2022 10 :20 AM EDT documented as of this encounter Last Filed Vital Signs Vital Sign Reading Time Taken Comments Blood Pressure 164/96 10/26/2024 9:15 AM EST Pulse 77 10/26/2024 9:15 AM EST Temperature 36.3 ??C (97.4 ??F) 10/26/2024 9:15 AM ES T Respiratory Rate 16 10/26/2024 9:15 AM EST Oxygen Saturation 98% 10/26/2024 9:15 AM EST Inhaled Oxygen Concentration - - Weight 90.4 kg (199 lb 6.4 oz) 10/26/2024 9:15 A M EST Height 157.5 cm (5' 2 ) 10/26/2024 9:15 AM EST Body Mass Index 36.47 10/26/2024 9:15 AM EST documented in this encounter Progress Notes * Marissa Gibson CNM - 10/26/2024 9:00 AM EST Subjective Patient ID: Apple Figueroa is a 44 y.o. female who presents for DIRECTOR OF TRAINING visit Low lying, possibly embedded ? Mirena IUD and 7cm ovarian vs paraovarian mass noted on ultrasound. MRI ordered to better characterize ovarian mass. Has appointment for this 10/30 at 1pm. Would like to defer exam today due to menses. Mirena inserted 6-7y ago for menstrual suppression. Still gets monthly menses, heavy x 2 days, bleeds for a total of 6-7 days. Has tubal ligation as well. Notes some RLQ cramping with menses. Last pap many years ago. Review of Systems Objective BP (!) 164/96 (BP Location: Left arm, Patient Position: Sitting, BP Cuff Size: Large adult long) Pulse 77 Temp 97.4 ??F (36.3 ??C) (Temporal) Resp 16 Ht 5' 2 (1.575 m) Wt 199 lb 6.4 oz (90.4 kg) SpO2 98% BMI 36.47 kg/m?? Physical Exam Constitutional: Appearance: Normal appearance. Neurological: Mental Status: She is alert. Psychiatric: Mood and Affect: Mood normal. Behavior: Behavior normal. Assessment/Plan Diagnoses and all orders for this visit: Mechanical breakdown of intrauterine contraceptive device, subsequent encounter Would like to return for IUD removal. Will schedule after MRI appointment, so we can hopefully review those results at visit. Seek care urgently if heavy bleeding/pelvic pain. Feels well today. Will do pap at next appointment as well. Ovarian mass, left MRI scheduled for 10/30. Will review at next visit, and refer to DIRECTOR OF TRAINING if indicated. documented in this encounter Plan of Treatment Upcoming Encounters Date Type Department Care Team (Late st Contact Info) Description 11/01/2024 9:30 AM EDT Office Visit [facility] [address] [place] [address] Marissa Gibson CNM [address] [place] [address] 11/30/2024 11:00 AM EDT Office Visit [facility] [address] [place] [address] Cassie Adam NP [address] [place] [address] documented as of this encounter Visit Diagnoses Diagnosis Mechanical breakdown of intrauterine contraceptive device, subsequent encounter- Primary Ovarian mass, left Cervical cancer screening- Primary Screening for malignant neoplasm of the cervix Encounter for IUD removal documented in this encounter Care Teams Microstrategy Architect Relationship Specialty Start Date End Date Cassie Adam NP 230 [place] [address] PCP - General Family Medicine 10/06/23 documented as of this encounter
--- OUTSIDE RECORDS SUMMARY | 2024-10-30 12:48 | XMS_ITS | Encounter Summary ---
Author Organization [email or web address] [facility] Address [address] [place] [address] 7t [place] [address] Care Team Providers Care Interior Specialist Name Role Phone Nehal Bailey [employer]IC Primary Care Provider [phone] Cassie Adam NP Primary Care Provider [phone] Encounter Details Date Type Department Care Team (Late st Contact Info) Description 08/20/2022 Abstract [facility] [address] [place] [address] [phone] Nehal Bailey FNP [address] [place] [address] Dept [place] [address] Social History Tobacco Use Types Packs/Day Years [...] Description 11/01/2024 9:30 AM EDT Office Visit [facility] [address] [place] [address] [phone] Marissa Gibson, ZAKM [address] [place], [place] [phone] 11/30/2024 11:00 AM EDT Office Visit [facility] [address] [place], [place] [phone] Cassie Adam NP [address] [place], [place] [phone] documented as of this encounter Visit Diagnoses Not on filedocumented in this encounter Care Teams Interior Specialist Relationship Specialty Start Date End Date Nehal Bailey FNP PCP - General Family Medicine 03/03/22 05/29/23 Cassie Adam NP [address] [place], [place] [phone] PCP - General Family Medicine 10/06/23 documented as of this encounter
--- OUTSIDE RECORDS SUMMARY | 2024-10-30 12:48 | XMS_ITS | Encounter Summary ---
Author Organization [employer] Address [address] 7t [place] [address] Care Team Providers Care Roping Machine Tender Name Role Phone Hien Adamily JOSUÉ Primary Care Provider [phone] Encounter Details Date Type Department Care Team (Late st Contact Info) Description 10/12/2024 Telephone [facility] 230 [place], [place] [phone] Trent Fang MD [address] [place], [place] [phone] Social History Tobacco Use Types Packs/Day Years [...] encounter Miscellaneous Notes * Telephone Encounter - Etta Robison RN - 10/12/2024 6:08 PM EST ----- Message from Trent Fang MD sent at 10/12/2024 4:23 PM EST ----- Please notify Apple that her pelvic US from was read as possibly malpositioned IUD and left ovarian cyst with further evaluation of cyst by MRI recommended by radiologist. I sent a referral to Marissa Gibson and ordered the pelvic MRI. Thanks. Aravind BLANCO placed to pt and the message above was discussed. Patient in agreement with plan of care. documented in this encounter Plan of Treatment Upcoming Encounters Date Type Department Care Team (Late st Contact Info) Description 11/01/2024 9:30 AM EDT Office Visit [facility] [address] [place] [address] Marissa Gbison CNM 230 [place] [address] 11/30/2024 11:00 AM EDT Office Visit [facility] [address] [place] [address] Cassie Adam NP 230 [place] [address] documented as of this encounter Visit Diagnoses Not on filedocumented in this encounter Care Teams Roping Machine Tender Relationship Specialty Start Date End Date Cassie Adam NP [address] [place] [address] PCP - General Family Medicine 10/06/23 documented as of this encounter
--- OUTSIDE RECORDS SUMMARY | 2024-10-30 12:48 | XMS_ITS | Clinical Summary ---
Author Organization [facility] Address [address] 7t [place] [address] Care Team Providers Care Currency Counter Name Role Phone KiaCassie JOSUÉ Primary Care Provider [phone] Allergies No known active allergies Medications ibuprofen [...] Encounters Date Type Department Care Team Description 10/26/2024 9:00 AM EST Office Visit [facility] [address] [place] [address] Marissa Gibson CNM Mechanical breakdown of intrauterine contraceptive device, subsequent encounter (Primary Dx); Ovarian mass, left 10/26/2024 Travel 10/13/2024 Travel 10/12/2024 Telephone [facility] [address] [place] [address] Trent Ventura MD 10/12/2024 Orders Only [facility] [address] [place] [address] Trent Ventura MD IUD migration, initial encounter (Primary Dx); Adnexal cyst 09/14/2024 Telephone [facility] [address] [place] [address] Trent Ventura MD 09/14/2024 Orders Only [facility] [address] [place] [address] Trent Ventura MD Abnormal CT scan, pelvis (Primary Dx); Left flank pain; Hepatomegaly; Hepatic steatosis from Last 3 Months Immunizations Name Administration Dates Next Due Moderna Covid-19 Vaccine 12+ 01/13/2021,12/17/19 21 Social History [...] Mass Index 36.47 10/26/2024 9:15 AM EST Plan of Treatment Upcoming Encounters Date Type Department Care Team (Late st Contact Info) Description 11/01/2024 9:30 AM EDT Office Visit [facility] [address] [place] [address] Marissa Gibson, NUNO 230 [place] [address] 11/30/2024 11:00 AM EDT Office Visit [facility] [address] [place] [address] Cassie Adam, JOSUÉ 230 [place] [address] Health Maintenance Due Date Last Done Comments Alcohol/Substance Use Screening 1992 DTaP/Tdap/Td Vaccines (1 - Tdap) 1999 Hepatitis A Vaccines (1 of 2 - Risk 2-dose series) 1999 Hepatitis B Vaccines (1 of 3 - 19+ 3-dose series) 1999 Pap Smear 2001 Cervical Cancer Screening 2010 HPV/Cotest 2010 Depression Screening 08/20/2023 08/20/2022, 08/20/20 COVID-19 Vaccine ( season) 2024 01/13/2021, 12/16/2020 Influenza Vaccine (#1) 2024 Mammogram 06/27/2024 06/27/2022, 1110/2021, 06/27/2022, Additional history exists SDOH Screening 02/16/2025 02/17/2024 Family Planning (PISQ) 10/26/2025 10/26/2024 Tobacco Screening 10/26/2025 10/26/2024 Zoster Vaccines (1 of 2) 2030 RSV [...] Procedure Name Priority Date/Time Associated Diagnosis Comments US PELVIS TRANSVAGINAL Urgent 10/11/2024 12:[address] scan, pelvis HEPATITIS C AB W/REFL TO HCV RNA, QN, PCR Routine 02/07/2023 10:04 AM EDT Health care maintenance HIV 1/2 ANTIGEN/ANTIBODY, FOURTH GENERATION W/RFL Routine 02/07/2023 10:04 AM EDT Health care maintenance BI US BREAST LIMITED RIGHT Routine 06/27/2022 3:25 PM EDT from Last 3 Months or Most Recently Relevant to Health Maintenance Results * US Pelvis Transvaginal (10/11/2024 12:40 PM EST) Anatomical Region Laterality Modality Pelvis Ultrasound 10/11/2024 12:4 0 PM EST Narrative 10/11/2024 12:41 PM EST ? [facility] ?[address] ?[place] [address] ? Ultrasound Report ? Signed ? Patient: Apple Schwab ?MR#: M ?? [id number] ? : 1980 ?Acct:[id number] ? Age/Sex: 44 / F ?ADM Date: 10/11/24 ? Loc: HO.US ? Attending Dr: Trent Ventura MD ? Ordering Physician: TRENT VENTURA MD ?? Date of Service: 10/11/24 ?? Procedure(s): US pelvic and transvaginal ?? Accession Number(s): [id number] ? cc: TRENT VENTURA MD ? CLINICAL HISTORY: 6 cm cystic lesion left adnexa. Dislodged intrauterine contraceptive device ? US pelvis transabdominal and transvaginal ? Comparison: 07/14/2024 CT ? Findings: ? Uterus measures 10 x 4.1 x 6.4 cm. ?? Low-lying IUD located within the central portion of the lower endometrium ?? (1 of the arms may be located in the subendometrial portion of the ?? myometrium). Otherwise unremarkable myometrium. ?? Endometrium 11 mm thickness. ? Right ovary 5.4 x 3.3 x 3.2 cm. 3.6 cm likely functional simple right ?? ovarian cyst. ?? 5.1 x 7 x 5.2 cm left adnexal (either paraovarian cyst or exophytic cyst ?? arising from the left ovary) with questionable small eccentric nodular ?? component on the cine clips. Left ovary (without the cyst) measures 0.3 x ?? 2.4 x 1.5 cm. ? No free fluid. ? IMPRESSION: ?? Low-lying IUD located within the central portion of the lower endometrium ?? (1 of the arms may be located in the subendometrial portion of the ?? myometrium). ?? 5.1 x 7 x 5.2 cm left adnexal (either paraovarian cyst or exophytic cyst ?? arising from the left ovary) with questionable small eccentric nodular ?? component on the cine clips, corresponds to the cyst seen on the recent CT ?? scan. Further evaluation with MRI recommended. ? This document has been electronically signed by: Nivia Medrano MD on ?? 10/11/2024 12:40:15 ? Dictated By: ?Nivia Medrano MD ? Signed By: ?<Electronically signed by Nivia Medrano MD in OV> ? 10/11/24 1241 ? DD/ 1240 ? TD/TT: 10/11/24 1240 ? Extrusion Technician: ? Procedure Note Donotuseinterpreter, Image - 10/11/2024 [place] [id number] Ultrasound Report Signed Patient: Figueroa Schwab#: M [id number] : 1980Acct:[id number] Age/Sex: 44 / FADM Date: 10/11/24 Loc: HO.US Attending Dr: Trent Ventura MD Ordering Physician: TRENT VENTURA MD Date of Service: 10/11/24 Procedure(s): US pelvic and transvaginal Accession Number(s): [id number] cc: TRENT VENTURA MD CLINICAL HISTORY: 6 cm cystic lesion left adnexa. Dislodged intrauterinecontraceptive device US pelvis transabdominal and transvaginal Comparison: 07/14/2024 CT Findings: Uterus measures 10 x 4.1 x 6.4 cm. Low-lying IUD located within the central portion of the lower endometrium (1 of the arms may be located in the subendometrial portion of the myometrium). Otherwise unremarkable myometrium. Endometrium 11 mm thickness. Right ovary 5.4 x 3.3 x 3.2 cm. 3.6 cm likely functional simple right ovarian cyst. 5.1 x 7 x 5.2 cm left adnexal (either paraovarian cyst or exophytic cyst arising from the left ovary) with questionable small eccentric nodular component on the cine clips. Left ovary (without the cyst) measures 0.3 x 2.4 x 1.5 cm. No free fluid. IMPRESSION: Low-lying IUD located within the central portion of the lower endometrium (1 of the arms may be located in the subendometrial portion of the myometrium). 5.1 x 7 x 5.2 cm left adnexal (either paraovarian cyst or exophytic cyst arising from the left ovary) with questionable small eccentric nodular component on the cine clips, corresponds to the cyst seen on the recent CT scan. Further evaluation with MRI recommended. This document has been electronically signed by: Nivia Medrano MD on 10/11/2024 12:40:15 Dictated By: Nivia Medrano MD Signed By: <Electronically signed by Nivia Medrano MD in OV> 10/11/24 1241 DD/ 1240 TD/TT: 10/11/24 1240 Extrusion Technician: us Trent Ventura MD [facility] US PROCEDURES Final Result * Hepatitis C Antibody with Reflex to HCV, RNA, Quantitative, Real-Time PCR (02/07/2023 10:04 AM EDT) Hepatitis C Antibody NON-REACT MIRA NON-REACT MIRA [employer] Index <0.02 <1.00 S[employer]Sum Comment: HCV antibody was non-reactive. There is no laboratory evidence of HCV infection. In most cases, no further action is required. However, if recent HCV exposure is suspected, a test for HCV RNA (test code 22041) is suggested. For additional information please refer to http://education.Cognio/faq/LRT51a1 (This link is being provided for informational/ educational purposes only.) Blood Venous blood specimen / Unknown 02/07/2023 10:04 AM EDT 02/07/2023 10:04 AM EDT Narrative [facility] - 02/17/2023 6:29 PM EDT FASTING:YES FASTING: YES us Nehal Bailey [facility] LAB BLOOD ORDERABLES Final Result [facility] [address], [place] [address] [employer] [facility] [address] [place] [address] * HIV-1/2 Antigen and Antibodies, Fourth Generation, with Reflexes (02/07/2023 10:04 AM EDT) HIV Antigen/Antibody, 4th Generation NON-REAC TIVE NON-REAC TIVE [employer] Comment: HIV-1 antigen and HIV-1/HIV-2 antibodies were [...] ?? For additional information please refer to http://education.Cognio/faq/EFK932 (This link is being provided for informational/ educational purposes only.) The performance of this assay has not been clinically validated in patients less than 2 years old. Blood Venous blood specimen / Unknown 02/07/2023 10:04 AM EDT 02/07/2023 10:04 AM EDT Narrative [facility] - 02/17/2023 6:29 PM EDT FASTING:YES FASTING: YES Nehal Bailey PEDIATRIC CLINICAL NURSE SPECIALIST LAB BLOOD ORDERABLES Final Result [facility] [address], [place] [address] [employer] [facility] [address] [place] [address] * BI US Breast Limited Right (06/27/2022 3:25 PM EDT) Anatomical Region Laterality Modality Breast Right Ultrasound 06/27/2022 3:25 PM EDT Narrative 09/20/2022 2:34 PM EST ? [facility] ? [address] ?[place] [address] ? Ultrasound Report ? Signed with Addenda ? Patient: Joshua,Apple ?MR#: [id number] ?? 7 ? : 1980 ?Acct:[id number] ? Age/Sex: 41 / F ?ADM Date: 11/03/22 ? Loc: HO.MAMMO ? Attending Dr: Trent Ventura MD ? Ordering Physician: TRENT VENTURA MD ?? Date of Service: 06/27/22 ?? Procedure(s): US breast RT limited ?? Accession Number(s): [id number] ? cc: TRENT VENTURA MD ?ADDENDUM ?? ADDENDUM: ?? Results and recommendation called to medical secretary receptionist (Kaylee) for Dr. ?? Leoncio on 06/28/2022. [...] 1650 ? DD/ 1525 ? TD/TT: ? Extrusion Technician: DAVILA ? Procedure Note Jerson, Image - 09/20/2022 [facility] [address] [place] [address] Dr. Dela Cruz, JOSUE [address] Ultrasound Report Signed with Crystal Patient: Figueroa Lewis#: [id number] : 1980Acct:[id number] Age/Sex: 41 / FADM Date: 06/27/22 Loc: HO.MAMMO Attending Dr: Trent Ventura MD Ordering Physician: TRENT VENTURA MD Date of Service: 06/27/22 Procedure(s): US breast RT limited Accession Number(s): [id number] cc: TRENT VENTURA MD ADDENDUM ADDENDUM: Results and recommendation called to medical secretary receptionist (Kaylee) for Dr. Ventura on 06/28/2022. Addendum [...] in OV> 06/27/22 1650 DD/ 1525 TD/TT: Extrusion Technician: DAVILA [facility] External Provider IMG US PROCEDURES Edited Result - Final from Last 3 Months or Most Recently Relevant to Health Maintenance Insurance [facility] C3 Care Teams Currency Counter Relationship Specialty Start Date End Date Cassie Adam NP [address] [place] [address] PCP - General Family Medicine 10/06/23
--- OUTSIDE RECORDS SUMMARY | 2024-10-30 12:48 | XMS_ITS | Encounter Summary ---
Author Organization [employer] Address [address] 7t [place] [address] Care Team Providers Care Lumber Marker Name Role Phone Cassie Adam JOSUÉ Primary Care Provider [phone] Encounter Details Date Type Department Care Team (Latest Contact Info) Description 10/26/2024 Travel Social History Tobacco Use Types Packs/Day Years [...] Description 11/01/2024 9:30 AM EDT Office Visit [facility] [address] [place] [address] Marissa Gibson CNM 230 [place] [address] 11/30/2024 11:00 AM EDT Office Visit [facility] [address] [place] [address] Cassie Adam NP 230 [place] [address] documented as of this encounter Visit Diagnoses Not on filedocumented in this encounter Care Teams Lumber Marker Relationship Specialty Start Date End Date Cassie Adam NP [address] [place] [address] PCP - General Family Medicine 10/06/23 documented as of this encounter
--- OUTSIDE RECORDS SUMMARY | 2024-10-30 12:48 | XMS_ITS | Encounter Summary ---
Author Organization [employer] Address [address] 7[address] [place] [address] Care Team Providers Care Digital Color Press Operator Name Role Phone Cassie Adam JOSUÉ Primary Care Provider [phone] Encounter Details Date Type Department Care Team (Latest Contact Info) Description 10/13/2024 Travel Social History Tobacco Use Types Packs/Day [...] Description 11/01/2024 9:30 AM EDT Office Visit [facility] [address] [place] [address] Marissa Gibson CNM [address] [place] [address] 11/30/2024 11:00 AM EDT Office Visit [facility] [address] [place] [address] Cassie Adam NP [address] [place] [address] documented as of this encounter Visit Diagnoses Not on filedocumented in this encounter Care Teams Digital Color Press Operator Relationship Specialty Start Date End Date Cassie Adam NP [address] [place] [address] PCP - General Family Medicine 10/06/23 documented as of this encounter
--- OUTSIDE RECORDS SUMMARY | 2024-10-30 12:48 | XMS_ITS | Encounter Summary ---
Author Organization [employer] [facility] Address [address] [place] [address] 7t [place] [address] Care Team Providers Care Director Of Application Development Name Role Phone Cassie Adam NP Primary Care Provider [phone] Reason for Referral * Imaging (Routine) - Authorized Specialty Diagnoses / Procedures Referred By Danielle reynolds Referred To Contact Radiology Diagnoses Adnexal cyst Procedures MR Pelvis w/ and w/o Contrast Trent Fang MD [address] [place], [place] Phone: tel: fax: [address] Phone: tel: fax: Referral ID Status Reason Start Date Expiration Date V isits Requested Visits Authorized [id number] Authorized 10/12/2024 10/12/2025 1 1 * Consultation (Routine) - Closed Specialty Diagnoses / Procedures Referred By Danielle t Referred To Contact Midwifery Diagnoses IUD migration, initial encounter Adnexal cyst Trent Fang MD [address] [place], [place] Phone: tel: fax: Marissa Gibson CNM [address] [place] [address] Phone: tel: fax: Referral ID Status Reason Start Date Expiration Date V isits Requested Visits Authorized [id number] Closed Consult and Treat 10/12/2024 10/12/2025 1 1 Encounter Details Date Type Department Care Team (Late Contact Info) Description 10/12/2024 Orders Only [facility] [address] [place] [address] Trent Fang MD [address] [place] [address] IUD migration, initial encounter (Primary Dx); Adnexal cyst Social History Tobacco Use Types Packs/Day Years Used Date Smoking Tobacco: Never Passive Smoke Exposure: Never Smokeless Tobacco: Never Alcohol Use Standard Drinks/Week Comments Never 0 (1 standard drink = 0.6 oz pur e alcohol) Housing Stability Answer Date Recorded What is your housing situation today? I have riteshksenia moctezuma 02/17/[address] you [...] Description 11/01/2024 9:30 AM EDT Office Visit [facility] [address] [place] [address] Marissa Gibson CNM [address] [place] [address] 11/30/2024 11:00 AM EDT Office Visit [facility] [address] [place] [address] Cassie Adam NP [address] [place] [address] Scheduled Orders Name Type Priority Associated Diagnoses Orde r Schedule MR Pelvis w/ and w/o Contrast Imaging Routine Adnexal cyst Expected: 10/12/2024, Expires: 10/12/2025 Scheduled Referrals Name Type Priority Associated Diagnoses Order Schedule Referral to Gynecology (Marissa) Outpatient Referral Routine IUD migration, initial encounter Adnexal cyst Expected: 10/12/2024 (Approximate), Expires: 10/12/2025 documented as of this encounter Visit Diagnoses Diagnosis IUD migration, initial encounter- Primary Adnexal cyst Cervical cancer screening- Primary Screening for malignant neoplasm of the cervix Encounter for IUD removal documented in this encounter Care Teams Director Of Application Development Relationship Specialty Start Date End Date Cassie Adam NP [address] [place] [address] PCP - General Family Medicine 10/06/23 documented as of this encounter
[2024-10-30] MEDS: gadobutroL 10 ML VIAL IVPUSH (13:30)
== END 2024-10-30 12:43 | disposition home or self-care (01) ==
LOC: HO.MRI 12:42
PROVIDERS: Visit Provider Emergency Medicine
DX: N94.9 Unspecified condition associated with female genital organs and menstrual cycle (principal)
CPT/HCPCS: 72197; A9585

== ENCOUNTER → 2024-10-30 12:55 | Outpatient (BNV) | payer MEDICAID, SELFPAY | PROVIDERS: Visit Provider Radiology Diagnostic Radiology | DX: N83.202 Unspecified ovarian cyst, left side (principal); D25.2 Subserosal leiomyoma of uterus | CPT/HCPCS: 72197 ==

== ENCOUNTER 2024-11-01 17:15 | Outpatient (REF) | payer MEDICAID, SELFPAY ==
--- OUTSIDE RECORDS SUMMARY | 2024-11-01 18:25 | XMS_ITS | Encounter Summary ---
Author Organization [employer] Address [address] 7t [place] [address] Care Team Providers Care Cosmetic Surgeon Name Role Phone Cassie Adam JOSUÉ Primary Care Provider [phone] Encounter Details Date Type Department Care Team [...] Description 11/30/2024 11:00 AM EDT Office Visit [facility] [address] [place] [address] Cassie Adam NP [address] [place] [address] documented as of this encounter Visit Diagnoses Not on filedocumented in this encounter Care Teams Cosmetic Surgeon Relationship Specialty Start Date End Date Cassie Adam NP [address] [place] [address] PCP - General Family Medicine 10/06/23 documented as of this encounter
--- OUTSIDE RECORDS SUMMARY | 2024-11-01 18:25 | XMS_ITS | Encounter Summary ---
Author Organization [employer] Address [address] [place] [address] Care Team Providers Care Tram Inspector Name Role Phone Cassie Adam JOSUÉ Primary Care Provider [phone] Encounter Details Date Type Department Care Team [...] 11:00 AM EDT Office Visit [facility] [address] [place] [address] Cassie Adam NP [address] [place] [address] documented as of this encounter Visit Diagnoses Not on filedocumented in this encounter Care Teams Tram Inspector Relationship Specialty Start Date End Date Cassie Adam NP [address] [place] [address] PCP - General Family Medicine 10/06/23 documented as of this encounter
--- OUTSIDE RECORDS SUMMARY | 2024-11-01 18:25 | XMS_ITS | Clinical Summary ---
Author Organization [employer] Address [address] [place] [address] Care Team Providers Care Change Management Expert Name Role Phone KiaCassie JOSUÉ Primary Care Provider [phone] Allergies No known active allergies Medications ibuprofen [...] Encounters Date Type Department Care Team Description 11/01/2024 9:30 AM EDT Office Visit [facility] [address] [place] [address] Marissa Gibson CNM Cervical cancer screening (Primary Dx); Encounter for IUD removal; Axillary mass, right 11/01/2024 Travel 10/26/2024 9:00 AM EST Office Visit [facility] [address] [place] [address] Marissa Gibson, NUNO Mechanical breakdown of intrauterine contraceptive device, subsequent encounter (Primary Dx); Ovarian mass, left 10/26/2024 Travel 10/13/2024 Travel 10/12/2024 Telephone [facility] [address] [place] [address] Trent Ventura MD 10/12/2024 Orders Only [facility] [address] [place] [address] Trent Ventura MD IUD migration, initial encounter (Primary Dx); Adnexal cyst 09/14/2024 Telephone [facility] [address] [place] [address] Trent Ventura MD 09/14/2024 Orders Only [facility] [address] [place] [address] Trent Ventura MD Abnormal CT scan, pelvis [...] Sign Reading Time Taken Comments Blood Pressure 149/97 11/01/2024 9:30 AM EDT Pulse 81 11/01/2024 9:30 AM EDT Temperature 36.3 ??C (97.3 ??F) 11/01/2024 9:30 AM ED T Respiratory Rate 20 11/01/2024 9:30 AM EDT Oxygen Saturation 98% 11/01/2024 9:30 AM EDT Inhaled Oxygen Concentration - - Weight 91.2 kg (201 lb) 11/01/2024 9:30 AM EDT Height 157.5 cm (5' 2 ) 11/01/2024 9:30 AM EDT Body Mass Index 36.76 11/01/2024 9:30 AM EDT Plan of Treatment Upcoming Encounters Date Type Department Care Team (Late st Contact Info) Description 11/30/2024 11:00 AM EDT Office Visit [facility] [address] [place] [address] Cassie Adam NP [address] [place] [address] Health Maintenance Due Date Last Done Comments [...] SDOH Screening 02/16/2025 02/17/2024 Family Planning (PISQ) 11/01/2025 11/01/2024 Tobacco Screening 11/01/2025 11/01/2024 Zoster Vaccines (1 of 2) 2030 RSV [...] EST Narrative 10/11/2024 12:41 PM EST ? [facility] ?[address] ?[place] [address] ? Ultrasound Report ? Signed ? Patient: Apple Schwab ?MR#: [id number] ?? [id number] ? : 1980 ?Acct:[id number] ? Age/Sex: 44 / F ?ADM Date: 10/11/24 ? Loc: HO.US ? Attending Dr: Trent Ventura MD ? Ordering Physician: TRENT VENTURA MD ?? Date of Service: 10/11/24 ?? Procedure(s): US pelvic and transvaginal ?? Accession Number(s): [id number] ? cc: TRENT VENTURA MD ? CLINICAL [...] DD/ 1240 ? TD/TT: 10/11/24 1240 ? Kettle Cook: ? Procedure Note Donotuseinterpreter, Image - 10/11/2024 [place] [address] Ultrasound Report Signed Patient: Figueroa Schwab#: [id number] : 1980Acct:[id number] Age/Sex: 44 / FADM Date: 10/11/24 Loc: HO.US Attending Dr: Trent Ventura MD Ordering Physician: TRENT VENTURA MD Date of Service: 10/11/24 Procedure(s): US pelvic and transvaginal Accession Number(s): [id number] cc: TRENT VENTURA MD CLINICAL HISTORY: 6 [...] 10/11/24 1241 DD/ 1240 TD/TT: 10/11/24 1240 Kettle Cook: Trent Ventura MD [facility] PROCEDURES Final Result * Hepatitis C Antibody with Reflex to HCV, RNA, Quantitative, Real-Time PCR (02/07/2023 10:04 AM EDT) Hepatitis C Antibody NON-REACT MIRA NON-REACT MIRA [facility] Index <0.02 <1.00 [facility] Comment: HCV antibody was non-reactive. There is no laboratory evidence of HCV infection. In most cases, no further action is required. However, if recent HCV exposure is suspected, a test for HCV RNA (test code 75268) is suggested. For additional information please refer to http://education.Quickcue/faq/NZS86b7 (This link is being provided for informational/ educational purposes only.) Blood Venous blood specimen / Unknown 02/07/2023 10:04 AM EDT 02/07/2023 10:04 AM EDT Narrative [facility] - 02/17/2023 6:29 PM EDT FASTING:YES FASTING: YES Nehal Bailey TAVERN CAR ATTENDANT LAB BLOOD ORDERABLES Final Result [facility] [address], [place] [address] [facility] [address] [place] [address] * HIV-1/2 Antigen and Antibodies, Fourth Generation, with Reflexes (02/07/2023 10:04 AM EDT) HIV Antigen/Antibody, 4th Generation NON-REAC TIVE NON-REAC TIVE [facility] Comment: HIV-1 antigen and HIV-1/HIV-2 antibodies were [...] ?? For additional information please refer to http://education.Quickcue/faq/ILE684 (This link is being provided for informational/ educational purposes only.) The performance of this assay has not been clinically validated in patients less than 2 years old. Blood Venous blood specimen / Unknown 02/07/2023 10:04 AM EDT 02/07/2023 10:04 AM EDT Narrative [facility] - 02/17/2023 6:29 PM EDT FASTING:YES FASTING: YES Nehal Bailey TAVERN CAR ATTENDANT LAB BLOOD ORDERABLES Final Result [facility] [address], [place] [address] [facility] [address] [place] [address] * BI US Breast Limited Right (06/27/2022 3:25 PM EDT) Anatomical Region Laterality Modality Breast Right Ultrasound 06/27/2022 3:25 PM EDT Narrative 09/20/2022 2:34 PM EST ? [facility] ? [address] ?[place] [address] ? Ultrasound Report ? Signed with Addenda ? Patient: Joshua,Apple ?MR#: [id number] ?? [id number] ? : 1980 ?Acct:[id number] ? Age/Sex: 41 / F ?ADM Date: 11/03/22 ? Loc: HO.MAMMO ? Attending Dr: Trent Ventura MD ? Ordering Physician: TRENT VENTURA MD ?? Date of Service: 06/27/22 ?? Procedure(s): US breast RT limited ?? Accession Number(s): [id number] ? cc: TRENT VENTURA MD ?ADDENDUM ?? ADDENDUM: ?? Results and recommendation called to medical housekeeper (Kaylee) for Dr. ?? Leoncio on 06/28/2022. [...] 1650 ? DD/ 1525 ? TD/TT: ? Kettle Cook: DAVILA ? Procedure Note Jerson, Image - 09/20/2022 [facility] [address] [place], [place] [address] Ultrasound Report Signed with Crystal Patient: Figueroa Lewis#: [id number] : 1980Acct:[id number] Age/Sex: 41 / FADM Date: 06/27/22 Loc: MAMMO Attending Dr: Trent Ventura MD Ordering Physician: TRENT VENTURA MD Date of Service: 06/27/22 Procedure(s): US breast RT limited Accession Number(s): [id number] cc: TRENT VENTURA MD ADDENDUM ADDENDUM: Results and recommendation called to medical housekeeper (Kaylee) for Dr. Ventura on 06/28/2022. Addendum [...] in OV> 06/27/22 1650 DD/ 1525 TD/TT: Kettle Cook: DAVILA [facility] External Provider IMG US PROCEDURES Edited Result - Final from Last 3 Months or Most Recently Relevant to Health Maintenance Insurance [facility] C3 Care Teams Change Management Expert Relationship Specialty Start Date End Date Cassie Adam NP [address] [place] [address] PCP - General Family Medicine 10/06/23
--- OUTSIDE RECORDS SUMMARY | 2024-11-01 18:25 | XMS_ITS | Encounter Summary ---
Author Organization [employer] [facility] Address [address] [place] [address] 7t [place] [address] Care Team Providers Care Supervisor Hand Workers Name Role Phone Cassie Adam NP Primary Care Provider [phone] Reason for Referral * Imaging (Routine) - Authorized Specialty Diagnoses / Procedures Referred By Danielle reynolds Referred To Contact Radiology Diagnoses Adnexal cyst Procedures MR Pelvis w/ and w/o Contrast Trent Fang MD [address] [place], [place] Phone: tel: fax: [address] Phone: tel: fax: Referral ID Status Reason Start Date Expiration Date V isits Requested Visits Authorized [id number] Authorized 10/12/2024 10/12/2025 1 1 * Consultation (Routine) - Closed Specialty Diagnoses / Procedures Referred By Danielle t Referred To Contact Midwifery Diagnoses IUD migration, initial encounter Adnexal cyst Trent Fang MD [address] [place], [place] Phone: tel: fax: Marissa Gibson CNM [address] [place] [address] Phone: tel: fax: Referral ID Status Reason Start Date Expiration Date V isits Requested Visits Authorized [id number] Closed Consult and Treat 10/12/2024 10/12/2025 1 1 Encounter Details Date Type Department Care Team (Late Contact Info) Description 10/12/2024 Orders Only [facility] [address] [place] [address] Trent Fang MD [address] [place] [address] IUD migration, initial encounter (Primary Dx); Adnexal [...] Description 11/30/2024 11:00 AM EDT Office Visit [facility] [address] [place] [address] Cassie Adam NP [address] [place] [address] Scheduled Orders Name Type Priority Associated Diagnoses [...] IUD migration, initial encounter- Primary Adnexal cyst documented in this encounter Care Teams Supervisor Hand Workers Relationship Specialty Start Date End Date Cassie Adam NP [address] [place] [address] PCP - General Family Medicine 10/06/23 documented as of this encounter
--- OUTSIDE RECORDS SUMMARY | 2024-11-01 18:25 | XMS_ITS | Encounter Summary ---
Author Organization [employer] Address [address] [facility] 7t [place] [address] Care Team Providers Care Log Loader Helper Name Role Phone TayCassie ruffin JOSUÉ Primary Care Provider [phone] Reason for Visit * Reason Comments rn first assistant Encounter Details Date Type Department Care Team (Latest Contact Info) Description 10/26/2024 9:00 AM EST Office Visit [facility] [address] [place], [place] [phone] Marissa Gibson CNM [address] [place], [place] [phone] Mechanical breakdown of intrauterine contraceptive device, subsequent [...] a 44 y.o. female who presents for CLOTH DESIZING RANGE TENDER visit Low lying, possibly embedded ? Mirena [...] review at next visit, and refer to CLOTH DESIZING RANGE TENDER if indicated. documented in this encounter Plan of Treatment Upcoming Encounters Date Type Department Care Team (Late st Contact Info) Description 11/30/2024 11:00 AM EDT Office Visit [facility] [address] [place] [address] Cassie Adam NP [address] [place] [address] documented as of this encounter Visit Diagnoses Diagnosis Mechanical breakdown of intrauterine contraceptive device, subsequent encounter- Primary Ovarian mass, left documented in this encounter Care Teams Log Loader Helper Relationship Specialty Start Date End Date Cassie Adam NP [address] [place] [address] PCP - General Family Medicine 10/06/23 documented as of this encounter
--- OUTSIDE RECORDS SUMMARY | 2024-11-01 18:25 | XMS_ITS | Encounter Summary ---
Author Organization [employer] Address [address] [place] [address] Care Team Providers Care Blacksmith Helper Name Role Phone Cassie Adam JOSUÉ Primary Care Provider [phone] Encounter Details Date Type Department Care Team (Latest Contact Info) Description 11/01/2024 Travel Social History Tobacco Use Types Packs/Day [...] Description 11/30/2024 11:00 AM EDT Office Visit [facility] [address] [place] [address] Cassie Adam NP [address] [place] [address] documented as of this encounter Visit Diagnoses Not on filedocumented in this encounter Care Teams Blacksmith Helper Relationship Specialty Start Date End Date Cassie Adam NP [address] [place] [address] PCP - General Family Medicine 10/06/23 documented as of this encounter
--- OUTSIDE RECORDS SUMMARY | 2024-11-01 18:25 | XMS_ITS | Encounter Summary ---
Author Organization [employer] [facility] Address [address] [facility] 7t [place] [address] Care Team Providers Care Purchasing Buyer Name Role Phone Cassie Adam NP Primary Care Provider [phone] Reason for Referral * Imaging (Urgent) - Authorized Specialty Diagnoses / Procedures Referred By Contac t Referred To Contact Radiology Diagnoses Axillary mass, right Procedures BI US Breast Limited Right Marissa Gibson CNM [address] [place] [address] Phone: tel: fax: [address] Phone: tel: fax: Referral ID Status Reason Start Date Expiration Date V isits Requested Visits Authorized [id number] Authorized 11/01/2024 11/01/2025 1 1 * Imaging (Urgent) - Authorized Specialty Diagnoses / Procedures Referred By Contac t Referred To Contact Radiology Diagnoses Axillary mass, right Procedures BI Mammogram Diagnostic Tomosynthesis Bilateral Marissa Gibson CNM [address] [place] [address] Phone: tel: fax: [address] Phone: tel: fax: Referral ID Status Reason Start Date Expiration Date V isits Requested Visits Authorized [id number] Authorized 11/01/2024 11/01/2025 1 1 Encounter Details Date Type Department Care Team (Late st Contact Info) Description 11/01/2024 9:30 AM EDT Office Visit [facility] [address] [place] [address] Marissa Gibson CNM [address] [place] [address] Cervical cancer screening (Primary Dx); Encounter for IUD removal; Axillary mass, right Social History Tobacco Use Types Packs/Day Years [...] Mass Index 36.76 11/01/2024 9:30 AM EDT documented in this encounter Progress Notes * Marissa Gibson, NUNO - 11/01/2024 9:30 AM EDT Subjective Patient ID: Apple Figueroa is a 44 y.o. female who presents for pap and IUD removal Here for pap and IUD removal. Low lying, possibly embedded ? Mirena IUD and 7cm ovarian vs paraovarian mass noted on ultrasound. MRI ordered to better characterize ovarian mass. Had appointment for this 10/30 at 1pm. Report not signed off yet. Reports persistent right axillary mass which gets smallerand larger. Seen on 2021 imaging: demonstrates a heterogeneous hypoechoic mass at deep dermis withclaw sign with skin suggesting intradermal lesion and measuring 2.2 x 1.0 x 1.7 cm. There is increased through-transmission of sound. Prominent surrounding vascularity is noted on color Doppler. Finding most likely represents inflamed sebaceous cyst/epidermal cyst. 1 AMAB partner x 30 years, no safety concerns. Has tubal ligation. Not planning any more pregnancies. No stress urinary incontinence. No other concerns today. Review of Systems Genitourinary: Negative for dyspareunia, dysuria, frequency, genital sores, hematuria, menstrual problem, pelvic pain, urgency, vaginal bleeding, vaginal discharge and vaginal pain. No abnormal pap, no abnormal bleeding, no nipple discharge Objective BP (!) 149/97 (BP Location: Left arm, Patient Position: Sitting, BP Cuff Size: Large adult) Pulse81 Temp 97.3 ??F (36.3 ??C) (Temporal) Resp 20 Ht 5' 2 (1.575 m) Wt 201 lb (91.2 kg) LMP/10/2024 (Approximate) SpO2 98% BMI 36.76 kg/m?? Physical Exam Constitutional: Appearance: Normal appearance. Chest: Breasts: Right: Mass present. No swelling, bleeding, inverted nipple, nipple discharge, skin change or tenderness. Left: Normal. No swelling, bleeding, inverted nipple, mass, nipple discharge, skin change or tenderness. Comments: 1cm firm, fixed right axillary mass. No redness/swelling/exudate Genitourinary: General: Normal vulva. Labia: Right: No rash, tenderness, lesion or injury. Left: No rash, tenderness, lesion or injury. Vagina: Normal. No signs of injury and foreign body. No vaginal discharge, erythema, tenderness, bleeding or lesions. Cervix: No cervical motion tenderness, discharge, friability, lesion, erythema, cervical bleeding or eversion. Uterus: Normal. Not enlarged and not tender. Adnexa: Right adnexa normal and left adnexa normal. Right: No mass, tenderness or fullness. Left: No mass, tenderness or fullness. Comments: IUD strings noted. Body of IUD nonpalpable Lymphadenopathy: Upper Body: Right upper body: No supraclavicular adenopathy. Left upper body: No supraclavicular or axillary adenopathy. Neurological: Mental Status: She is alert. Psychiatric: Mood and Affect: Mood normal. Behavior: Behavior normal. Assessment/Plan Diagnoses and all orders for this visit: Cervical cancer screening - Pap Smear Cotest 5 years if normal/HPV neg. Will contact with results. Will check MRI results again this week and contact with results. Encounter for IUD removal IUD removed intact, see procedure note. Track cycles, let me know if heavy/prolonged or frequent bleeding. IUD Removal Procedure Note Type of IUD: Mirena Date of insertion: unknown Reason for removal: Side effect: malposition Procedure Time Out Documentation Time out performed Procedure Details IUD strings visible: yes Removal: IUD strings grasped and IUD removed intact with gentle traction. The patient tolerated theprocedure well. All appropriate instructions regarding removal were reviewed. The patient was advised to call for any fever or for prolonged or severe pain or bleeding. Track cycles, let me know if heavy/prolonged or frequent bleeding. Axillary mass, right - BI Mammogram Diagnostic Tomosynthesis Bilateral; Future - BI US Breast Limited Right; Future Will order diagnostic imaging and contact with results. Will refer to surgeon if indicated, as massseems to correspond to previously imaged possible epidermal cyst documented in this encounter Plan of Treatment Upcoming Encounters Date Type Department Care Team (Late st Contact Info) Description 11/30/2024 11:00 AM EDT Office Visit [facility] [address] [place], [place] [phone] Cassie Adam NP [address] [place] [address] Scheduled Orders Name Type Priority Associated Diagnoses Order Schedule Pap Smear Pathology and Cytology Routine Cervical cancer screening Ordered: 11/01/2024 BI Mammogram Diagnostic Tomosynthesis Bilateral Imaging Urgent Axillary mass, right Expected: 11/01/2024, Expires: 01/01/2026 BI US Breast Limited Right Imaging Urgent Axillary mass, right Expected: 11/01/2024, Expires: 01/01/2026 documented as of this encounter Visit Diagnoses Diagnosis Cervical cancer screening- Primary Screening for malignant neoplasm of the cervix Encounter for IUD removal Axillary mass, right documented in this encounter Care Teams Purchasing Buyer Relationship Specialty Start Date End Date Cassie Adam NP [address] [place] [address] PCP - General Family Medicine 10/06/23 documented as of this encounter
--- OUTSIDE RECORDS SUMMARY | 2024-11-01 18:25 | XMS_ITS | Encounter Summary ---
Author Organization [employer] [facility] Address [address] [place] [address] 7t [place] [address] Care Team Providers Care Groundwater Programs Director Name Role Phone Nehal Bailey SENIOR CONTROLLER Primary Care Provider [phone] Cassie Adam NP Primary Care Provider [phone] Encounter Details Date Type Department Care Team (Late st Contact Info) Description 08/20/2022 Abstract [facility] [address] [place] [phone] Nehal Bailey FNP [address] [place] [address] [place] [address] Social History Tobacco Use Types Packs/Day Years [...] Description 11/30/2024 11:00 AM EDT Office Visit [facility] [address] [place] [address] Cassie Adam NP [address] [place] [address] documented as of this encounter Visit Diagnoses Not on filedocumented in this encounter Care Teams Groundwater Programs Director Relationship Specialty Start Date End Date Nehal Bailey FNP PCP - General Family Medicine 03/03/22 05/29/23 Cassie Adam NP [address] [place] [address] PCP - General Family Medicine 10/06/23 documented as of this encounter
--- OUTSIDE RECORDS SUMMARY | 2024-11-01 18:25 | XMS_ITS | Encounter Summary ---
Author Organization [employer] Address [address] [facility] [address] 7t [place] [address] Care Team Providers Care Pharmacology Associate Name Role Phone Hien Adamily JOSUÉ Primary Care Provider [phone] Encounter Details Date Type Department Care Team (Late st Contact Info) Description 10/12/2024 Telephone [facility] [address] [place], [place] [phone] Trent Fang MD [address] [place], [place] [phone] Social History Tobacco Use Types Packs/Day Years [...] EDT Office Visit [facility] [address] [place] [address] Cassie Adam NP [address] [place] [address] documented as of this encounter Visit Diagnoses Not on filedocumented in this encounter Care Teams Pharmacology Associate Relationship Specialty Start Date End Date Cassie Adam NP [address] [place] [address] PCP - General Family Medicine 10/06/23 documented as of this encounter
[2024-11-05 12:58] LABS: HPV Genotype 16 Negative (Negative); HPV Genotype 18 Negative (Negative); HPV High Risk Negative (Negative)
== END 2024-11-01 17:16 | disposition home or self-care (01) ==
LOC: HO.HHCLNP 17:15
PROVIDERS: Visit Provider Advanced Practice Midwife
DX: Z12.4 Encounter for screening for malignant neoplasm of cervix (principal)
CPT/HCPCS: 87626; 88175

== ENCOUNTER → 2024-11-08 11:30 | Outpatient (BNV) | payer MEDICAID, SELFPAY | PROVIDERS: Visit Provider Internal Medicine | DX: N63.31 Unspecified lump in axillary tail of the right breast (principal) | CPT/HCPCS: 76642; 77062; 77066 ==

== ENCOUNTER 2024-11-08 11:44 | Outpatient (REF) | payer MEDICAID, SELFPAY ==
--- NOTE | ~2024-11-08 | MM_ITS ---
EXAMINATION: MM DIAGNOSTIC DIGITAL BREAST TOMOSYNTHESIS, BILATERAL Limited right breast ultrasound. CLINICAL INFORMATION: Right axillary palpable lump. COMPARISON: Mammography: Comparison is made with relevant prior exams. TECHNIQUE: Digital breast mammography with tomosynthesis is performed in both the craniocaudal and mediolateral oblique views along with computer-aided detection (CAD). FINDINGS: The breasts are heterogeneously dense, which may obscure small masses (ACR BI-RADS breast composition Category c). There are no significant masses, abnormal calcifications, or other abnormalities. Targeted color Doppler ultrasound scanning in the area the patient's palpable lump in the right axilla demonstrates interval decreased size in intradermal hypoechoic oval mass measuring 6 x 5 x 7 mm which is significantly decreased from prior ultrasound and 2021. Results are provided to the patient at time of visit by the technologist. MM/MM tomosynthesis diagnostic BI IMPRESSION: Decreased size of right axillary sebaceous cyst. Benign. Recommend clinical evaluation and follow-up. ASSESSMENT: BI-RADS BI-RADS 2 - Benign Findings RECOMMENDATION: 1 year F/U This patient's information was entered into a reminder system with a target due date for their next mammogram. Electronically signed by: Agata Dugan DO 11/08/2024 01:15 PM EDT
--- OUTSIDE RECORDS SUMMARY | 2024-11-08 13:59 | XMS_ITS | Encounter Summary ---
Author Organization [employer] Address [address] [facility] [address] [place] [address] Care Team Providers Care Cook'S Assistant Name Role Phone Cassie Adam JOSUÉ Primary Care Provider [phone] Encounter Details Date Type Department Care Team [...] Description 11/30/2024 11:00 AM EDT Office Visit [facility] [address] [place] [address] Cassie Adam NP [address] [place] [address] documented as of this encounter Visit Diagnoses Not on filedocumented in this encounter Care Teams Cook'S Assistant Relationship Specialty Start Date End Date Cassie Adam NP [address] [place] [address] PCP - General Family Medicine 10/06/23 documented as of this encounter
--- OUTSIDE RECORDS SUMMARY | 2024-11-08 13:59 | XMS_ITS | Encounter Summary ---
Author Organization [employer] Address [address] [facility] [address] 7t [place] [address] Care Team Providers Care Barrel Drum Cutter Name Role Phone Cassie Adam JOSUÉ Primary Care Provider [phone] Encounter Details Date Type Department Care Team [...] 11/30/2024 11:00 AM EDT Office Visit [facility] [address] [place] [address] Cassie Adam NP [address] [place] [address] documented as of this encounter Visit Diagnoses Not on filedocumented in this encounter Care Teams Barrel Drum Cutter Relationship Specialty Start Date End Date Cassie Adam NP [address] [place] [address] PCP - General Family Medicine 10/06/23 documented as of this encounter
--- OUTSIDE RECORDS SUMMARY | 2024-11-08 13:59 | XMS_ITS | Encounter Summary ---
Author Organization [employer] [facility] Address [address] [place] [address] 7t [place] [address] Care Team Providers Care Occupational Therapist Assistant Name Role Phone Cassie Adam NP Primary Care Provider [phone] Reason for Referral * Imaging (Routine) - Closed Specialty Diagnoses / Procedures Referred By Danielle reynolds Referred To Contact Radiology Diagnoses Adnexal cyst Procedures MR Pelvis w/ and w/o Contrast Trent Ventura MD [address] [place], [place] Phone: tel: fax: [address] Phone: tel: fax: Referral ID Status Reason Start Date Expiration Date Visits Re quested Visits Authorized [id number] Closed 10/12/2024 10/12/2025 1 1 * Consultation (Routine) - Closed Specialty Diagnoses / Procedures Referred By Danielle reynolds Referred To Contact Midwifery Diagnoses IUD migration, initial encounter Adnexal cyst Trent Ventura MD [address] [place] [address] Phone: tel: fax: Marissa Gibson CNM [address] [place] [address] Phone: tel: fax: Referral ID Status Reason Start Date Expiration Date V isits Requested Visits Authorized [id number] Closed Consult and Treat 10/12/2024 10/12/2025 1 1 Encounter Details Date Type Department Care Team (Late Contact Info) Description 10/12/2024 Orders Only [facility] [address] [place] [address] Trent Ventura MD [address] [place] [address] IUD migration, initial encounter (Primary Dx); Adnexal [...] Description 11/30/2024 11:00 AM EDT Office Visit [facility] [address] [place] [address] Cassie Adam NP [address] [place] [address] Scheduled Referrals Name Type Priority Associated Diagnoses Order Schedule Referral to Gynecology (Marissa) Outpatient Referral Routine IUD migration, initial encounter Adnexal cyst Expected: 10/12/2024 (Approximate), Expires: 10/12/2025 documented as of this encounter Procedures Procedure Name Priority Date/Time Associated Diagnosis Comments MR PELVIS W AND WO CONTRAST Routine 10/30/2024 12:55 PM EST Adnexal cyst documented in this encounter Results * MR Pelvis w/ and w/o Contrast (10/30/2024 12:55 PM EST) Anatomical Region Laterality Modality Body, Pelvis Magnetic Resonan ce 10/30/2024 12:5 5 PM EST Narrative 11/02/2024 7:36 AM EDT ? [facility] ?[address] ?[place] [address] ? Magnetic Resonance Report ? Signed ? Patient: Apple Schwab ?MR#: M ?? [id number] ? : 1980 ?Acct:[id number] ? Age/Sex: 44 / F ?ADM Date: 10/30/24 ? Loc: HO.MRI ? Attending Dr: Trent Ventura MD ? Ordering Physician: TRENT VENTURA MD ?? Date of Service: 10/30/24 ?? Procedure(s): MR pelvis wo/w con ?? Accession Number(s): [id number] ? cc: TRENT VENTURA MD ? EXAMINATION: MR PELVIS WITHOUT THEN WITH IV CONTRAST ? HISTORY: ADNEXAL CYST. ? TECHNIQUE: ??Axial T1, axial fat suppressed T2, and sagittal and coronal ?? T2-weighted MR images of the pelvis were obtained. Subsequently, axial ?? fat-suppressed T1-weighted images were obtained before and after the ?? intravenous administration of 9 mm Gadavist. Postcontrast sagittal ?? fat-suppressed T1-weighted images were also obtained. ? COMPARISON: Correlation is made with a pelvic ultrasound dated ?? 10/11/[address] of the pelvis dated 07/14/2024. ? FINDINGS: ? There is a 9 mm subserosal fibroid at the fundus of the uterus. There ?? are multiple nabothian cysts in the cervix. An IUD is noted in the ?? lower uterine segment. ? The right ovary measures 1.3 x 2.5 x 3.1 cm and is unremarkable in ?? appearance, demonstrating multiple small follicles. There is a 7.1 x ?? 5.2 x 4.9 cm cystic structure in the left adnexa which appears to be ?? arising from the ovary. There is a thin septation at the posterior ?? aspect of the cyst and mild wall thickening and enhancement at the ?? lateral aspect of the cyst. No internal nodular components are ?? identified. The remainder of the ovary measures 3.1 x 2.1 x 2.3 cm and ?? demonstrates multiple follicles. ? The urinary bladder is collapsed. There is no pelvic lymphadenopathy or ?? significant free fluid. The visualized bones demonstrate normal signal ?? intensity. ? MR/MR pelvis wo/w con ?? IMPRESSION: ? 1. 7.1 x 5.2 x 4.9 cm left adnexal cyst which appears to be arising ?? from the ovary. There is a thin posterior septation and mild wall ?? thickening and enhancement of the lateral wall. Neoplasm is not ?? excluded, and laparoscopy should be considered. ? 2. 9 mm subserosal fibroid. IUD in the lower uterine segment. ? Electronically signed by: ??Bola Wills MD ??11/02/2024 07:33 AM EDT ?? RP ? Dictated By: ?Bola Wills MD ? Signed By: ?<Electronically signed by Bola Wills MD in OV> ?11/02/24 0733 ? DD/ 1255 ? TD/TT: 10/30/24 1325 ? Soldering Machine Tender: ? Procedure Note Jerson Image - 11/02/[address] [address] Magnetic Resonance Report Signed Patient: Figueroa Schwab#: M [id number] : 1980Acct:[id number] Age/Sex: 44 / FADM Date: 10/30/24 Loc: .MRI Attending Dr: Trent Ventura MD Ordering Physician: TRENT VENTURA MD Date of Service: 10/30/24 Procedure(s): MR pelvis wo/w con Accession Number(s): [id number] cc: TRENT VENTURA MD EXAMINATION: MR PELVIS WITHOUT THEN WITH IV CONTRAST HISTORY: ADNEXAL CYST. TECHNIQUE: Axial T1, axial fat suppressed T2, and sagittal and coronal T2-weighted MR images of the pelvis were obtained. Subsequently, axial fat-suppressed T1-weighted images were obtained before and after the intravenous administration of 9 mm Gadavist. Postcontrast sagittal fat-suppressed T1-weighted images were also obtained. COMPARISON: Correlation is made with a pelvic ultrasound dated 10/11/[address] of the pelvis dated 07/14/2024. FINDINGS: There is a 9 mm subserosal fibroid at the fundus of the uterus. There are multiple nabothian cysts in the cervix. An IUD is noted in the lower uterine segment. The right ovary measures 1.3 x 2.5 x 3.1 cm and is unremarkable in appearance, demonstrating multiple small follicles. There is a 7.1 x 5.2 x 4.9 cm cystic structure in the left adnexa which appears to be arising from the ovary. There is a thin septation at the posterior aspect of the cyst and mild wall thickening and enhancement at the lateral aspect of the cyst. No internal nodular components are identified. The remainder of the ovary measures 3.1 x 2.1 x 2.3 cm and demonstrates multiple follicles. The urinary bladder is collapsed. There is no pelvic lymphadenopathy or significant free fluid. The visualized bones demonstrate normal signal intensity. MR/MR pelvis wo/w con IMPRESSION: 1. 7.1 x 5.2 x 4.9 cm left adnexal cyst which appears to be arising from the ovary. There is a thin posterior septation and mild wall thickening and enhancement of the lateral wall. Neoplasm is not excluded, and laparoscopy should be considered. 2. 9 mm subserosal fibroid. IUD in the lower uterine segment. Electronically signed by: Bola Wills MD 11/02/2024 07:33 AM EDT RP Dictated By: Bola Wills MD Signed By: <Electronically signed by Bola Wills MD in OV> 11/02/24 0797 DD/ 1255 TD/TT: 10/30/24 1325 Soldering Machine Tender: Trent Ventura MD IMG MRI PROCEDURES Final Result documented in this encounter Visit Diagnoses Diagnosis IUD migration, initial encounter- Primary Adnexal cyst documented in this encounter Care Teams Occupational Therapist Assistant Relationship Specialty Start Date End Date Cassie Adam NP [address] [place] [address] PCP - General Family Medicine 10/06/23 documented as of this encounter
--- OUTSIDE RECORDS SUMMARY | 2024-11-08 13:59 | XMS_ITS | Encounter Summary ---
Author Organization [employer] Address [address] [facility] [address] 7[address] [place] [address] Care Team Providers Care Blower And Compressor Assembler Name Role Phone Hien Adamily JOSUÉ Primary Care Provider [phone] Encounter Details Date Type Department Care Team (Late st Contact Info) Description 11/02/2024 Telephone [facility] [address] [place], [place] [phone] Trent Fang MD [address] [place], [place] [phone] Social History Tobacco Use Types Packs/Day Years [...] Telephone Encounter - Regina Snell RN - 11/02/2024 8:37 AM EDT TC placed to pt, utilizing [email or web address] de C.V. ID: [id number], regarding message below per Dr. Fang. Pt verbalized understanding. Pt advised referral was placed today and usually takes a couple days and advised to call [facility] by the end of the week if she does not hear regarding referral. Pt verbalized understanding and in agreement. No further questions or concerns. Pt to F/U as needed. ----- Message from Ternt Fang MD sent at 11/02/2024 8:28 AM EDT ----- Please notify Apple that her pelvis MRI was read as left ovarian cyst that was seen on CT scan and pelvic US. Referral to SALES ADVISOR was advised for further evaluation, and I sent it today. Thanks. Aravind documented in this encounter Plan of Treatment Upcoming Encounters Date Type Department Care Team (Late st Contact Info) Description 11/30/2024 11:00 AM EDT Office Visit [facility] [address] [place] [address] Cassie Adam NP [address] [place] [address] documented as of this encounter Visit Diagnoses Not on filedocumented in this encounter Care Teams Blower And Compressor Assembler Relationship Specialty Start Date End Date Cassie Adam NP [address] [place] [address] PCP - General Family Medicine 10/06/23 documented as of this encounter
--- OUTSIDE RECORDS SUMMARY | 2024-11-08 13:59 | XMS_ITS | Encounter Summary ---
Author Organization [employer] Address [address] [facility] [address] 7t [place] [address] Care Team Providers Care Inventory Worker Name Role Phone TayCassie ruffin JOSUÉ Primary Care Provider Reason for Visit * Reason Onset Date Comments Results 11/08/2024 Encounter Details Date Type Department Care Team ([facility] st Contact Info) Description 11/08/2024 Telephone [facility] [address] [place] [address] Daphne Rico RN Results Social History Tobacco Use Types Packs/Day Years [...] encounter Miscellaneous Notes * Telephone Encounter - Daphne Rico RN - 11/08/2024 1:54 PM EDT ----- Message from Marissa Gibson sent at 11/08/2024 1:37 PM EDT ----- Please let Apple know lump in right armpit is smaller than on last imaging, likely sebaceous cyst. Not dangerous. I can refer her to surgeon if she would like removal. Otherwise, can simply observe. documented in this encounter Plan of Treatment Upcoming Encounters Date Type Department Care Team (Late st Contact Info) Description 11/30/2024 11:00 AM EDT Office Visit [facility] [address] [place] [address] Cassie Adam NP [address] [place] [address] documented as of this encounter Visit Diagnoses Not on filedocumented in this encounter Care Teams Inventory Worker Relationship Specialty Start Date End Date Cassie Adam NP [address] [place] [address] PCP - General Family Medicine 10/06/23 documented as of this encounter
--- OUTSIDE RECORDS SUMMARY | 2024-11-08 13:59 | XMS_ITS | Encounter Summary ---
Author Organization [employer] Address [address] [facility] 7t [place] [address] Care Team Providers Care Senior Software Engineer Analytics Name Role Phone Hien Adamily JOSUÉ Primary Care Provider Reason for Referral * Consultation (Routine) - Authorized Specialty Diagnoses / Procedures Referred By Contdanuta t Referred To Contact Obstetrics and Gynecology Diagnoses Ovarian mass, left Trent Fang MD [address] [place] [address] Phone: tel: fax: [facility] [address] 5[address] (Main Hospital Entrance) [place], [place] Phone: tel: fax: Referral ID Status Reason Start Date Expiration Date Visits Requested Visits Authorized [id number] Authorized Specialty Services Required 11/02/2024 11/02/2025 9 9 Encounter Details Date Type Department Care Team (Late st Contact Info) Description 11/02/2024 Orders Only [facility] [address] [place], [place] [phone] Trent Fang MD [address] [place] [address] Ovarian mass, left (Primary Dx) Social History Tobacco Use Types Packs/Day Years [...] Upcoming Encounters Date Type Department Care Team ([facility] st Contact Info) Description 11/30/2024 11:00 AM EDT Office Visit [facility] [address] [place] [address] Cassie Adam NP [address] [place] [address] Scheduled Referrals Name Type Priority Associated Diagnoses Order Schedule Referral to Obstetrics / Gynecology Outpatient Referral Routine Ovarian mass, left Expected: 11/02/2024 (Approximate), Expires: 11/02/2025 documented as of this encounter Visit Diagnoses Diagnosis Ovarian mass, left- Primary documented in this encounter Care Teams Senior Software Engineer Analytics Relationship Specialty Start Date End Date Cassie Adam NP [address] [place] [address] PCP - General Family Medicine 10/06/23 documented as of this encounter
--- OUTSIDE RECORDS SUMMARY | 2024-11-08 13:59 | XMS_ITS | Encounter Summary ---
Author Organization [employer] Address [address] [facility] [address] 7t [place] [address] Care Team Providers Care Nurse Practitioner Per Diem Name Role Phone Hien Adamily JOSUÉ Primary Care Provider [phone] Encounter Details Date Type Department Care Team (Late st Contact Info) Description 10/12/2024 Telephone [facility] [address] [place], [place] [phone] Trent Fang MD 230 [place], [place] [phone] Social History Tobacco Use Types Packs/Day Years [...] Description 11/30/2024 11:00 AM EDT Office Visit [facility] [address] [place] [address] Cassie Adam NP 230 [place] [address] documented as of this encounter Visit Diagnoses Not on filedocumented in this encounter Care Teams Nurse Practitioner Per Diem Relationship Specialty Start Date End Date Cassie Adam NP [address] [place] [address] PCP - General Family Medicine 10/06/23 documented as of this encounter
--- OUTSIDE RECORDS SUMMARY | 2024-11-08 13:59 | XMS_ITS | Encounter Summary ---
Author Organization [employer] Address [address] [facility] [address] 7[address] [place] [address] Care Team Providers Care Sample Color Maker Name Role Phone Cassie Adam JOSUÉ Primary Care Provider [phone] Encounter Details Date Type Department Care Team [...] Description 11/30/2024 11:00 AM EDT Office Visit [facility] 230 [place] [address] Cassie Adam NP [address] [place] [address] documented as of this encounter Visit Diagnoses Not on filedocumented in this encounter Care Teams Sample Color Maker Relationship Specialty Start Date End Date Cassie Adam NP [address] [place] [address] PCP - General Family Medicine 10/06/23 documented as of this encounter
--- OUTSIDE RECORDS SUMMARY | 2024-11-08 13:59 | XMS_ITS | Encounter Summary ---
Author Organization [employer] Address [address] [facility] 7t [place] [address] Care Team Providers Care Respiratory Support Technician Name Role Phone Cassie Adam JOSUÉ Primary Care Provider [phone] Encounter Details Date Type Department Care Team ([facility] st Contact Info) Description 11/05/2024 Population Health Risk Score [facility] (C3) Department [address] [facility] 7 [place] [phone] Provider, Population Health Generic Social History Tobacco Use Types Packs/Day Years [...] Description 11/30/2024 11:00 AM EDT Office Visit [facility] MEDICINE 230 [place] [address] Cassie Adam NP 230 [place] [address] documented as of this encounter Visit Diagnoses Not on filedocumented in this encounter Care Teams Respiratory Support Technician Relationship Specialty Start Date End Date Cassie Adam NP 230 [place] [address] PCP - General Family Medicine 10/06/23 documented as of this encounter
--- OUTSIDE RECORDS SUMMARY | 2024-11-08 13:59 | XMS_ITS | Encounter Summary ---
Author Organization [employer] [facility] Address [address] [place] [address] 7t [place] [address] Care Team Providers Care Hand Cloth Examiner Name Role Phone Nehal Bailey MAINTAINER OPERATOR Primary Care Provider [phone] Cassie Adam NP Primary Care Provider [phone] Encounter Details Date Type Department Care Team (Late st Contact Info) Description 08/20/2022 Abstract [facility] [address] [place] [phone] Nehal Bailey FNP [address] [place] [address] Dept [place] [address] Social History Tobacco Use Types Packs/Day Years [...] Description 11/30/2024 11:00 AM EDT Office Visit [facility] [address] [place] [address] Cassie Adam NP [address] [place] [address] documented as of this encounter Visit Diagnoses Not on filedocumented in this encounter Care Teams Hand Cloth Examiner Relationship Specialty Start Date End Date Nehal Bailey FNP PCP - General Family Medicine 03/03/22 05/29/23 Cassie Adam NP 230 [place] [address] PCP - General Family Medicine 10/06/23 documented as of this encounter
--- OUTSIDE RECORDS SUMMARY | 2024-11-08 13:59 | XMS_ITS | Encounter Summary ---
Author Organization [employer] Address [address] [facility] 7t [place] [address] Care Team Providers Care Hamper Maker Machine Name Role Phone TayCassie ruffin JOSUÉ Primary Care Provider [phone] Reason for Visit * Reason Comments ob gyn physician assistant Encounter Details Date Type Department Care Team (Latest Contact Info) Description 10/26/2024 9:00 AM EST Office Visit [facility] 230 [place], [place] [phone] Marissa Gibson CNM 230 [place], [place] [phone] Mechanical breakdown of intrauterine contraceptive device, subsequent [...] a 44 y.o. female who presents for STRINGER MACHINE TENDER visit Low lying, possibly embedded ? [...] review at next visit, and refer to STRINGER MACHINE TENDER if indicated. documented in this encounter Plan of Treatment Upcoming Encounters Date Type Department Care Team (Late st Contact Info) Description 11/30/2024 11:00 AM EDT Office Visit [facility] 230 [place] [address] Cassie Adam NP 230 [place] [address] documented as of this encounter Visit Diagnoses Diagnosis Mechanical breakdown of intrauterine contraceptive device, subsequent encounter- Primary Ovarian mass, left documented in this encounter Care Teams Hamper Maker Machine Relationship Specialty Start Date End Date Cassie Adam NP 230 [place] [address] PCP - General Family Medicine 10/06/23 documented as of this encounter
--- OUTSIDE RECORDS SUMMARY | 2024-11-08 13:59 | XMS_ITS | Clinical Summary ---
Author Organization [employer] Address [address] [facility] [address] 7t [place] [address] Care Team Providers Care Cath Laboratory Technician Name Role Phone TayCassie ruffin JOSUÉ Primary Care Provider [phone] Allergies No known active allergies Medications ibuprofen [...] Encounters Date Type Department Care Team Description 11/08/2024 Telephone [facility] 230 [place] [address] Daphne Rico RN Results 11/05/2024 Population Health Risk Score [facility] (C3) Department [address] [phone] Provider, Population Health Generic 11/02/2024 Telephone [facility] 230 [place] [address] Trent Fang MD 11/02/2024 Orders Only [facility] [address] [place] [phone] Trent Fang MD Ovarian mass, left (Primary Dx) 11/01/2024 9:30 AM EDT Office Visit [facility] [address] [place] [address] Otoniel Chaudhari CNM Cervical cancer screening (Primary Dx); Encounter for IUD removal; Axillary mass, right 11/01/2024 Orders Only [address] [address] Otoniel Chaudhari CNM 11/01/2024 Travel 10/26/2024 9:00 AM EST Office Visit [address] [address] Otoniel Chaudhari CNM Mechanical breakdown of intrauterine contraceptive device, subsequent encounter (Primary Dx); Ovarian mass, left 10/26/2024 Travel 10/13/2024 Travel 10/12/2024 Telephone [facility] [address] [place] [address] Trent Fang MD 10/12/2024 Orders Only [facility] [address] [place] [phone] Trent Fang MD IUD migration, initial encounter (Primary Dx); Adnexal cyst 09/14/2024 Telephone [facility] [address] [place] [phone] Trent Fang MD 09/14/2024 Orders Only [facility] [address] [place] [phone] Trent Fang MD Abnormal CT scan, pelvis (Primary Dx); [...] Description 11/30/2024 11:00 AM EDT Office Visit [facility] 230 [place] [address] Cassie Adam NP 230 [place] [address] Health Maintenance Due Date Last Done Comments Alcohol/Substance Use Screening 1992 DTaP/Tdap/Td Vaccines (1 - Tdap) 1999 Hepatitis A Vaccines (1 of 2 - Risk 2-dose series) 1999 Hepatitis B Vaccines (1 of 3 - 19+ 3-dose series) 1999 Depression Screening 08/20/2023 08/20/2022, 08/20/20 COVID-19 Vaccine ( - 2023- season) 2024 01/13/2021, 12/16/2020 Influenza Vaccine (#1) 2024 SDOH Screening 02/16/2025 02/17/2024 Family Planning (PISQ) 11/01/2025 11/01/2024 Tobacco Screening 11/01/2025 11/01/2024 Mammogram 11/08/2026 11/08/2024, 11/0 10/2021, 06/27/2022, Additional history exists Cervical Cancer Screening 11/01/2029 HPV/Cotest 11/01/2029 11/01/2024 Pap Smear 11/01/2029 11/01/2024 Zoster Vaccines (1 of 2) 2030 [...] Procedure Name Priority Date/Time Associated Diagnosis Comments BI MAMMOGRAM DIAGNOSTIC TOMOSYNTHESIS BILATERAL Urgent 11/08/2024 12:05 PM EDT Axillary mass, right PAP SMEAR Routine 11/01/2024 9:02 AM EDT Cervical cancer screening HPV DNA, LOW/HIGH RISK Routine 9:02 AM EDT MR PELVIS W AND WO CONTRAST Routine 10/30/2024 12:55 PM EST Adnexal cyst US PELVIS TRANSVAGINAL Urgent 12:[address] scan, pelvis HEPATITIS C AB W/REFL TO HCV RNA, QN, PCR Routine 02/07/2023 10:04 AM EDT Health care maintenance HIV 1/2 ANTIGEN/ANTIBODY, FOURTH GENERATION W/RFL Routine 02/07/2023 10:04 AM EDT Health care maintenance from Last 3 Months or Most Recently Relevant to Health Maintenance Results * BI Mammogram Diagnostic Tomosynthesis Bilateral (11/08/2024 12:05 PM EDT) Anatomical Region Laterality Modality Breast Bilateral Mammography 11/08/2024 12:0 5 PM EDT Narrative 11/08/2024 1:18 PM EDT ? [facility] ? [address] ?[place] [address] ? Mammography Report ? Signed ? Patient: Apple Schwab ?MR#: M ?? [id number] ? : 1980 ?Acct:[id number] ? Age/Sex: 44 / F ?ADM Date: 03/17/25 ? Loc: HO.MAMMO ? Attending Dr: Otoniel Chaudhari CNM ? Ordering Physician: OTONIEL CHAUDHARI CNM ?Results: 2 ?? Benign Findings ? Date of Service: 11/08/24 ?Follow Up: 1 Year From Orig ?? inal Mammogram ? Procedure(s): MM tomosynthesis diagnostic BI ?? Accession Number(s): [id number] ? cc: OTONIEL CHAUDHARI CNM ? EXAMINATION: ?? MM DIAGNOSTIC DIGITAL BREAST TOMOSYNTHESIS, BILATERAL ?? Limited right breast ultrasound. ? CLINICAL INFORMATION: ? Right axillary palpable lump. ? COMPARISON: ?? Mammography: Comparison is made with relevant prior exams. ? TECHNIQUE: ?? Digital breast mammography with tomosynthesis is performed in both the ?? craniocaudal and mediolateral oblique views along with computer-aided ?? detection (CAD). ? FINDINGS: ?? The breasts are heterogeneously dense, which may obscure small masses ?? (ACR BI-RADS breast composition Category c). ? There are no significant masses, abnormal calcifications, or other ?? abnormalities. ? Targeted color Doppler ultrasound scanning in the area the patient's ?? palpable lump in the right axilla demonstrates interval decreased size ?? in intradermal hypoechoic oval mass measuring 6 x 5 x 7 mm which is ?? significantly decreased from prior ultrasound and 2021. ? Results are provided to the patient at time of visit by the ?? technologist. ? MM/MM tomosynthesis diagnostic BI ?? IMPRESSION: ?? Decreased size of right axillary sebaceous cyst. Benign. Recommend ?? clinical evaluation and follow-up. ? ASSESSMENT: ? BI-RADS BI-RADS 2 - Benign Findings ? RECOMMENDATION: ?? 1 year F/U ? This patient's information was entered into a reminder system with a ?? target due date for their next mammogram. ? Electronically signed by: ??Agata Dugan DO ??11/08/2024 01:15 PM EDT ? Dictated By: ?Agata Dugan DO ? Signed By: ?<Electronically signed by Agata Dugan, DO in OV> ? 11/08/24 1315 ? DD/ 1205 ? TD/TT: 11/08/24 1225 ? Street Contractor: ? Procedure Note Jerson, Image - 11/08/[address] [facility] [address] [place] [address] Mammography Report Signed Patient: Pramod SchwabRodolfo#: M [id number] : 1980Acct:[id number] Age/Sex: 44 / FADM Date: 11/08/24 Loc: HO.MAMMO Attending Dr: Otoniel Chaudhari CNM Ordering Physician: OTONIEL CHAUDHARIesults: 2 Benign Findings Date of Service: 11/08/24Follow Up: 1 Year From Orig inal Mammogram Procedure(s): MM tomosynthesis diagnostic BI Accession Number(s): [id number] cc: OTONIEL CHAUDHARI CNM EXAMINATION: MM DIAGNOSTIC DIGITAL BREAST TOMOSYNTHESIS, BILATERAL Limited right breast ultrasound. CLINICAL INFORMATION: Right axillary palpable lump. COMPARISON: Mammography: Comparison is made with relevant prior exams. TECHNIQUE: Digital breast mammography with tomosynthesis is performed in both the craniocaudal and mediolateral oblique views along with computer-aided detection (CAD). FINDINGS: The breasts are heterogeneously dense, which may obscure small masses (ACR BI-RADS breast composition Category c). There are no significant masses, abnormal calcifications, or other abnormalities. Targeted color Doppler ultrasound scanning in the area the patient's palpable lump in the right axilla demonstrates interval decreased size in intradermal hypoechoic oval mass measuring 6 x 5 x 7 mm which is significantly decreased from prior ultrasound and 2021. Results are provided to the patient at time of visit by the technologist. MM/MM tomosynthesis diagnostic BI IMPRESSION: Decreased size of right axillary sebaceous cyst. Benign. Recommend clinical evaluation and follow-up. ASSESSMENT: BI-RADS BI-RADS 2 - Benign Findings RECOMMENDATION: 1 year F/U This patient's information was entered into a reminder system with a target due date for their next mammogram. Electronically signed by: Agata Dugan DO 11/08/2024 01:15 PM EDT RP Dictated By: Agata Dugan DO Signed By: <Electronically signed by Agata Dugan DO in OV> 11/08/24 1315 DD/ 1205 TD/TT: 11/08/[address] Contractor: Otoniel CRESPO IMG BI PROCEDURES Final R esult * HPV DNA, Low/High Risk (11/01/2024 9:02 AM EDT) HPV High Risk Negative Negative [facility] HPV Genotype 16 Negative Negative [facility] HPV Genotype 18 Negative Negative [facility] Comment:HPV testing performe d at [facility] (CLIA#[id number]), [address] [place] [address].Testing for HPV was performed using the [employer] GOGO 6800system. The presence of HPV in the female genital tract isassociated with a number of diseases, including cervicalcarcinoma. The HPV DNA high risk pool tests for HPV 31, 33,35, 39, 45, 51, 52, 56, 58, 59, 66 and 68. The testing forHPV 16 and 18 genotypes has also been performed. A positiveresult indicates detection of nucleic acid sequences fromone or more subtypes, whereas a negative result indicatessuch sequences were not detected. 11/01/2024 9:02 AM EDT 11/02/2024 9:30 AM EDT us Otoniel Chaudhari [facility] LAB BLOOD ORDERABLES Tereza dalton Result [facility] [address] [place] [phone] * Pap Smear (11/01/2024 9:02 AM EDT) Swab Cervix uteri structure / Unknown 11/01/2024 9:02 AM EDT 11/02/2024 9:30 AM EDT Narrative [facility] - 11/04/2024 7:05 AM EDT ----- ------- Name: Apple Schwab ?Age/Sex: 44/F ? : 1980 Unit#: [id number] ?? Attend Dr: OTONIEL CHAUDHARI CNM ?Re11/01/24 ?Status: DEP REF ? Location: HO.HHCLNP ? Disch: ? ----- ------- SPEC : [id number] ? RECD: 11/02/24 ? STATUS: ??SOUT ? REQ NUM: [id number] ? BRITANY: 11/01/24 ? SUBM DR: OTONIEL CHAUDHARI CNM ? ENTERED: ??11/02/24 ?SP TYPE: Pap Smr ?OTHR DR: ? ORDERED: ??Pap Smear ? Interpretation ?? Satisfactory for evaluation. ?? Negative for intraepithelial lesion or malignancy. ?? No endocervical cells seen. ? HPV High Risk: ??Negative ? HPV Genotyping 16: ??Negative ?? HPV Genotyping 18: ??Negative ?Clinical Information LMP: Unknown date Previous PAP test: Unknown date/findings Other surgery: IUD ? Material Received ?? ThinPrep-Cervical ----- ------- Signed (signature on file) DENIS Hyde (ASCP) 11/04/24 0705 ? ----- ------- ? END OF REPORT ? us Otoniel Chaudhari CNM LAB CYTOLOGY ORDERABLES F inal Result [facility] [address] [place] [phone] * MR Pelvis w/ and w/o Contrast (10/30/2024 12:55 PM EST) Anatomical Region Laterality Modality Body, Pelvis Magnetic Resonan ce 10/30/2024 12:5 5 PM EST Narrative 11/02/2024 7:36 AM EDT ? [facility] ?[address] [place] [address] St. ?[place] [address] ? Magnetic Resonance Report ? Signed ? Patient: Apple Schwab ?MR#: M ?? [id number] ? : 1980 ?Acct:[id number] ? Age/Sex: 44 / F ?ADM Date: 10/30/24 ? Loc: HO.MRI ? Attending Dr: Trent Fang MD ? Ordering Physician: TRENT FANG MD ?? Date of Service: 10/30/24 ?? Procedure(s): MR pelvis wo/w con ?? Accession Number(s): [id number] ? cc: TRENT FANG MD ? EXAMINATION: MR PELVIS WITHOUT THEN [...] DD/ 1255 ? TD/TT: 10/30/24 1325 ? Street Contractor: ? Procedure Note Jerson, Image - 11/02/[address] [address] Magnetic Resonance Report Signed Patient: Figueroa Schwab#: M [id number] : 1980Acct:[id number] Age/Sex: 44 / FADM Date: 10/30/24 Loc: .MRI Attending Dr: Trent Fang MD Ordering Physician: TRENT FANG MD Date of Service: 10/30/24 Procedure(s): MR pelvis wo/w con Accession Number(s): [id number] cc: TRENT FANG MD EXAMINATION: MR PELVIS WITHOUT THEN WITH [...] by Bola Wills MD in OV> 11/02/24 0733 DD/ 1255 TD/TT: 10/30/[address] Contractor: us Trent Fang MD IMG MRI PROCEDURES Final Result * US Pelvis Transvaginal (10/11/2024 12:40 PM EST) Anatomical Region Laterality Modality Pelvis Ultrasound 10/11/2024 12:4 0 PM EST Narrative 10/11/2024 12:41 PM EST ? [facility] ?[address] ?[place] [address] ? Ultrasound Report ? Signed ? Patient: Apple Schwab ?MR#: M ?? [id number] ? : 1980 ?Acct:[id number] ? Age/Sex: 44 / F ?ADM Date: 10/11/24 ? Loc: HO.US ? Attending Dr: Trent Fang MD ? Ordering Physician: TRENT FANG MD ?? Date of Service: 10/11/24 ?? Procedure(s): US pelvic and transvaginal ?? Accession Number(s): [id number] ? cc: TRENT FANG MD ? CLINICAL HISTORY: 6 cm cystic [...] DD/ 1240 ? TD/TT: 10/11/24 1240 ? Street Contractor: ? Procedure Note Jerson, Image - 10/11/2024 [place] [address] Ultrasound Report Signed Patient: Figueroa Schwab#: M [id number] : 1980Acct:[id number] Age/Sex: 44 / FADM Date: 10/11/24 Loc: HO.US Attending Dr: Trent Fang MD Ordering Physician: TRENT FANG MD Date of Service: 10/11/24 Procedure(s): US pelvic and transvaginal Accession Number(s): [id number] cc: TRENT FANG MD CLINICAL HISTORY: 6 cm cystic lesion [...] 10/11/24 1241 DD/ 1240 TD/TT: 10/11/[address] Contractor: us Trent Fang MD IM US PROCEDURES Final Result * Hepatitis C Antibody with Reflex to HCV, RNA, Quantitative, Real-Time PCR (02/07/2023 10:04 AM EDT) Hepatitis C Antibody NON-REACT MIRA NON-REACT MIRA [facility] [place] [employer] Index <0.02 <1.00 [facility] [place] [employer] Comment: HCV antibody was non-reactive. There is no laboratory evidence of HCV infection. In most cases, no further action is required. However, if recent HCV exposure is suspected, a test for HCV RNA (test code 98800) is suggested. For additional information please refer to http://HighlightCam.Open Air Publishing/faq/OGD39j5 (This link is being provided for informational/ educational purposes only.) Blood Venous blood specimen / Unknown 02/07/2023 10:04 AM EDT 02/07/2023 10:04 AM EDT Narrative [facility] - 02/17/2023 6:29 PM EDT FASTING:YES FASTING: YES Nehal Bailey HOT TOP LINER HELPER LAB BLOOD ORDERABLES Final Result [employer] [address], [place] [address] [facility] [place] [employer] [address] [place] [address] * HIV-1/2 Antigen and Antibodies, Fourth Generation, with Reflexes (02/07/2023 10:04 AM EDT) Pathologist [facility] HIV Antigen/Antibody, 4th Generation NON-REAC TIVE NON-REAC TIVE [facility] [place] [employer] Comment: HIV-1 antigen and HIV-1/HIV-2 antibodies [...] ?? For additional information please refer to http://HighlightCam.[employer] Air Publishing/faq/UVH195 (This link is being provided for informational/ educational purposes only.) The performance of this assay has not been clinically validated in patients less than 2 years old. Blood Venous blood specimen / Unknown 02/07/2023 10:04 AM EDT 02/07/2023 10:04 AM EDT Narrative [facility] - 02/17/2023 6:29 PM EDT FASTING:YES FASTING: YES us Nehal Bailey HOT TOP LINER HELPER LAB BLOOD ORDERABLES Final Result [facility] [address] [facility], [place] [address] [facility] [place] [facility] [address] [place] [phone] from Last 3 Months or Most Recently Relevant to Health Maintenance [facility] Care Teams Cath Laboratory Technician Relationship Specialty Start Date End Date Cassie Adam NP [address] [place] [phone] PCP - General Family Medicine 10/06/23
--- OUTSIDE RECORDS SUMMARY | 2024-11-08 13:59 | XMS_ITS | Encounter Summary ---
Author Organization [employer] Address [address] [facility] [address] 7[address] [place] [address] Care Team Providers Care Direct Mail Manager Name Role Phone TayCassie ruffin JOSUÉ Primary Care Provider [phone] Encounter Details Date Type Department Care Team (Late st Contact Info) Description 11/01/2024 Orders Only [facility] [address] [place], [place] [phone] Marissa Gibson, ZAK [address] [place], [place] [phone] Social History Tobacco Use Types Packs/Day Years [...] Description 11/30/2024 11:00 AM EDT Office Visit [facility] [address] [place], [place] [phone] Cassie Adam NP [address] [place] [address] documented as of this encounter Procedures Procedure Name Priority Date/Time Associated Diagnosis Comments HPV DNA, LOW/HIGH RISK Routine 11/01/2024 9:02 AM EDT documented in this encounter Results * HPV DNA, Low/High Risk (11/01/2024 9:02 AM EDT) HPV High Risk Negative Negative [facility] HPV Genotype 16 Negative Negative [facility] HPV Genotype 18 Negative Negative [facility] Comment:HPV testing performe d at [facility] (IA#[id number]), [address] [place] [address].Testing for HPV was performed using the Suma [...] AM EDT 11/02/2024 9:30 AM EDT us Marissa Gibson CNM LAB BLOOD ORDERABLES Tereza l Result [facility] [address] [place] [address] [phone] documented in this encounter Visit Diagnoses Not on filedocumented in this encounter Care Teams Direct Mail Manager Relationship Specialty Start Date End Date Cassie Adam NP [address] [place] [address] PCP - General Family Medicine 10/06/23 documented as of this encounter
--- OUTSIDE RECORDS SUMMARY | 2024-11-08 13:59 | XMS_ITS | Encounter Summary ---
Author Organization [facility] Address [address] [facility] 7[address] [place] [address] Care Team Providers Care Automobile Wrecker Name Role Phone Cassie Adam NP Primary Care Provider [phone] Reason for Referral * Imaging (Urgent) - Closed Specialty Diagnoses / Procedures Referred By Danielle t Referred To Contact Radiology Diagnoses Axillary mass, right Procedures BI US Breast Limited Right Marissa Chaudhari CNM [address] [place] [address] Phone: tel: fax: [address] Phone: tel: fax: Referral ID Status Reason Start Date Expiration Date Visits Re quested Visits Authorized [id number] Closed 11/01/2024 11/01/2025 1 1 * Imaging (Urgent) - Closed Specialty Diagnoses / Procedures Referred By Contdanuta t Referred To Contact Radiology Diagnoses Axillary mass, right Procedures BI Mammogram Diagnostic Tomosynthesis Bilateral Marissa Chaudhari CNM [address] [place] [address] Phone: tel: fax: [address] Phone: tel: fax: Referral ID Status Reason Start Date Expiration Date Visits Re quested Visits Authorized [id number] Closed 11/01/2024 11/01/2025 1 1 Encounter Details Date Type Department Care Team (Late st Contact Info) Description 11/01/2024 9:30 AM EDT Office Visit [facility] [address] [place] [address] Marissa Chaudhari CNM [address] [place] [address] Cervical cancer screening (Primary Dx); Encounter for [...] in this encounter Progress Notes * Marissa Chaudhari, NUNO - 11/01/2024 9:30 AM EDT Subjective [...] possible epidermal cyst documented in this encounter Miscellaneous Notes * Result Encounter Note - Marissa Chaudhari CNM - 11/01/2024 9:30 AM EDT Please let Apple know her pap was normal, HPV negative. This is good news. We should repeat in 5 years. Thanks! * Result Encounter Note - Marissa Chaudhari CNM - 11/01/2024 9:30 AM EDT Please let Apple know lump in right armpit is smaller than on last imaging, likely sebaceous cyst. Not dangerous. I can refer her to surgeon if she would like removal. Otherwise, can simply observe. documented in this encounter Plan of Treatment Upcoming Encounters Date Type Department Care Team (Late st Contact Info) Description 11/30/2024 11:00 AM EDT Office Visit [facility] [address] [place] [address] Cassie Adam NP [address] [place] [address] Scheduled Orders Name Type Priority Associated Diagnoses Orde r Schedule BI US Breast Limited Right Imaging Urgent Axillary mass, right Expected: 11/01/2024, Expires: 01/01/2026 documented as of this encounter Procedures Procedure Name Priority Date/Time Associated Diagnosis Comments BI MAMMOGRAM DIAGNOSTIC TOMOSYNTHESIS BILATERAL Urgent 11/08/2024 12:05 PM EDT Axillary mass, right PAP SMEAR Routine 11/01/2024 9:02 AM EDT Cervical cancer screening documented in this encounter Results * BI Mammogram Diagnostic Tomosynthesis Bilateral (11/08/2024 12:05 PM EDT) Anatomical Region Laterality Modality Breast Bilateral Mammography 11/08/2024 12:0 5 PM EDT Narrative 11/08/2024 1:18 PM EDT ? [facility] ? [address] ?[place] [address] ? Mammography Report ? Signed ? Patient: Apple Schwab ?MR#: [id number] ?? [id number] ? : 1980 ?Acct:[id number] ? Age/Sex: 44 / F ?ADM Date: 11/08/24 ? Loc: HO.MAMMO ? Attending Dr: Marissa Chaudhari CNM ? Ordering Physician: MARISSA CHAUDHARI CNM ?Results: 2 ?? Benign Findings ? Date of Service: 11/08/24 ?Follow Up: 1 Year From Orig ?? inal Mammogram ? Procedure(s): MM tomosynthesis diagnostic BI ?? Accession Number(s): [id number] ? cc: MARISSA CHAUDHARI CNM ? EXAMINATION: ?? MM DIAGNOSTIC [...] DD/ 1205 ? TD/TT: 11/08/24 1225 ? Jet Worker: ? Procedure Note Jerson, Jeremiah - 11/08/2024 [facility] [address] [place] [address] [place] [address] Mammography Report Signed Patient: Joshua Figueroa Figueroa#: M [id number] : 1980Acct:[id number] Age/Sex: 44 / FADM Date: 11/08/24 Loc: HO.MAMMO Attending Dr: Marissa Chaudhari CNM Ordering Physician: MARISSA CHAUDHARIesults: 2 Benign Findings Date of Service: 11/08/24Follow Up: 1 Year From [facility] Mammogram Procedure(s): MM tomosynthesis diagnostic BI Accession Number(s): [id number] cc: MARISSA CHAUDHARI CNM EXAMINATION: MM DIAGNOSTIC DIGITAL BREAST [...] Agata Dugan DO 11/08/2024 01:15 PM EDT Dictated By: Agata Dugan DO Signed By: <Electronically signed by Agata Dugan DO in OV> 11/08/24 1315 DD/ 1205 TD/TT: 11/08/24 1225 Jet Worker: Marissa Chaudhari CNM IMG BI PROCEDURES Final R esult * Pap Smear (11/01/2024 9:02 AM EDT) Swab Cervix uteri structure / Unknown 11/01/2024 9:02 AM EDT 11/02/2024 9:30 AM EDT [facility] - 11/04/2024 7:05 AM EDT ----- ------- Name: Apple Schwab ?Age/Sex: 44/F ? : 1980 Unit#: [id number] ?? Attend Dr: MARISSA CHAUDHARI CNM ?Re11/01/24 ?Status: DEP REF ? Location: HO.HHCLNP ? Disch: ? ----- ------- SPEC : [id number] ? RECD: 11/02/24 ? STATUS: ??SOUT ? REQ NUM: [id number] ? BRITANY: 11/01/24-901 ? SUBM DR: RIZZARDINI,MARISSA CNM ? ENTERED: ??11/02/24-0954 ?SP TYPE: Pap Smr ?OTHR : ? ORDERED: ??Pap Smear ? Interpretation ?? [...] (signature on file) DENIS [place] (ASCP) 11/04/24 07 ? ----- ------- ? END OF REPORT ? us Marissa Chaudhari CN LAB CYTOLOGY ORDERABLES F inal Result [facility] [address] [place] [address] [phone] documented in this encounter Visit Diagnoses Diagnosis Cervical cancer screening- Primary Screening for malignant neoplasm of the cervix Encounter for IUD removal Axillary mass, right documented in this encounter Care Teams Automobile Wrecker Relationship Specialty Start Date End Date Cassie Adam NP [address] [place] [phone] PCP - General Family Medicine 10/06/23 documented as of this encounter
== END 2024-11-08 11:45 | disposition home or self-care (01) ==
LOC: HO.MAMMO 11:44
PROVIDERS: Visit Provider Advanced Practice Midwife
DX: R22.31 Localized swelling, mass and lump, right upper limb (principal)
CPT/HCPCS: 76642; 77062; 77066

== ENCOUNTER 2024-11-30 12:06 | Outpatient (REF) | payer MEDICAID, SELFPAY ==
[2024-11-30 13:55] LABS: Estimated Average Glucose 111 mg/dL; Hemoglobin A1C 128.3365 umol/L; Hemoglobin A1c % 5.5 % (<6.0); Total Hemoglobin (HGBA1C) 3479.3648 umol/L
[2024-11-30 14:38] LABS: Alanine Aminotransferase 111 U/L (0-31); Albumin Level 4.3 g/dL (3.5-5.0); Alkaline Phosphatase 81 U/L (39-117); Anion Gap 10 (12-20); Aspartate Amino Transferase 76 U/L (5-31); Bilirubin Total 0.5 mg/dL (0.0-1.0); Blood Urea Nitrogen 9 mg/dL (9-16); Calcium 9.2 mg/dL (8.4-10.2); Carbon Dioxide 24 mmol/L (22-29); Chloride 109 mmol/L (96-108); Cholesterol 185 mg/dL (<200); Estimated Glomerular Filt Rate > 60; Glucose Random 79 mg/dL (60-115); HDL Cholesterol 48 mg/dL (>40); LDL Cholesterol Calculated 117 mg/dL (<100); Potassium 3.7 mmol/L (3.3-5.1); Sodium 139 mmol/L (135-145); Total Protein 7.7 g/dL (6.5-8.0); Triglycerides 100 mg/dL (<150)
--- OUTSIDE RECORDS SUMMARY | 2024-11-30 14:44 | XMS_ITS | Encounter Summary ---
Author Organization [employer] Address [address] [facility] [address] [place] [address] Care Team Providers Care Certified Recreational Therapist Name Role Phone Cassie Adam JOSUÉ Primary Care Provider [phone] Encounter Details Date Type Department Care Team (Latest Contact Info) Description 11/30/2024 Travel Social History Tobacco Use Types Packs/Day Years Used Date Smoking Tobacco: Never Passive Smoke Exposure: Never Smokeless Tobacco: Never Alcohol Use Standard Drinks/Week Comments Never 0 (1 standard drink = 0.6 oz pur e alcohol) Depression Answer Date Recorded Patient Health Questionnaire-9 Score 1 11/30/2024 Patient Health Questionnaire-9 Score 1 11/30/2024 Last PHQ-9: Questionnaire Data Not on file 0 11/30/2024 Housing Stability Answer Date Recorded What is [...] Date Recorded Patient Health Questionnaire-2 Score 0 11/30/2024 Internet Access Answer Date Recorded Internet Access [...] Care Team (Late st Contact Info) Description 01/24/2025 11:15 AM EDT Office Visit [facility] [address] [place] [address] Cassie Adam NP [address] [place] [address] documented as of this encounter Visit Diagnoses Not on filedocumented in this encounter Additional Health Concerns Assessment Noted Time PHQ-9 Depression Total Score: 1 12/01/19 25 11:58 AM EDT documented as of this encounter Care Teams Certified Recreational Therapist Relationship Specialty Start Date End Date Cassie Adam NP [address] [place] [address] PCP - General Family Medicine 10/06/23 documented as of this encounter
--- OUTSIDE RECORDS SUMMARY | 2024-11-30 14:44 | XMS_ITS | Encounter Summary ---
Author Organization [facility] Address [address] [facility] [address] [place] [address] Care Team Providers Care Electric Blasting Cap Assembler Name Role Phone Cassie Adam NP Primary Care Provider [phone] Reason for Referral * Consultation (Routine) - Authorized Specialty Diagnoses / Procedures Referred By Danielle reynolds Referred To Contact Dental Mrp Controller / Dentistry Diagnoses Healthcare maintenance Cassie Adam NP [address] [place] [address] Phone: tel: fax: Referral ID Status Reason Start Date Expiration Date Visits Requested Visits Authorized [id number] Authorized Consult and Treat 11/30/2024 11/30/2025 1 1 * Consultation (Routine) - Authorized Specialty Diagnoses / Procedures Referred By Danielle reynolds Referred To Contact Optometry Diagnoses Healthcare maintenance Cassie Adam NP [address] [place] [address] Phone: tel: fax: [facility] [address] [place] [phone] Phone: tel: fax: Referral ID Status Reason Start Date Expiration Date Visits Requested Visits Authorized [id number] Authorized Consult and Treat 11/30/2024 11/30/2025 1 1 Encounter Details Date Type Department Care Team (Late st Contact Info) Description 11/30/2024 11:00 AM EDT Office Visit [facility] [address] [place] [address] Cassie Adam, JOSUÉ [address] [place] [address] Healthcare maintenance (Primary Dx); Elevated blood pressure reading; Dietary counseling; Exercise counseling; Obesity (BMI 35.0-39.9 without comorbidity); Primary hypertension Social History Tobacco Use Types Packs/Day Years [...] the past 12 months, has t he [employer], gas, oil or water [employer] threatened to shut off services in your [...] Sign Reading Time Taken Comments Blood Pressure 160/93 11/30/2024 11:22 AM EDT Pulse 86 11/30/2024 11:22 AM EDT Temperature 36.4 ??C (97.6 ??F) 11/30/2024 11:22 AM E DT Respiratory Rate 20 11/30/2024 11:22 AM EDT Oxygen Saturation 97% 11/30/2024 11:22 AM EDT Inhaled Oxygen Concentration - - Weight 93.1 kg (205 lb 3.2 oz) 11/30/2024 11:22 AM EDT Height 157.5 cm (5' 2 ) 11/30/2024 11:22 AM EDT Body Mass Index 37.53 11/30/2024 11:22 AM EDT documented in this encounter Plan of Treatment Upcoming Encounters Date Type Department Care Team (Late st Contact Info) Description 01/24/2025 11:15 AM EDT Office Visit [facility] [address] [place] [address] Cassie Adam NP [address] [place] [address] Pending Results Name Type Priority Associated Diagnoses Date /Time Comprehensive Metabolic Panel Lab Routine Healthcare maintenance Primary hypertension 11/30/2024 12:08 PM EDT Lipid Panel, Standard Lab Routine Healthcare maintenance Primary hypertension 11/30/2024 12:08 PM EDT Scheduled Orders Name Type Priority Associated Diagnoses Orde r Schedule TSH W/Reflex to FT4 Lab Routine Healthcare maintenance Obesity (BMI 35.0-39.9 without comorbidity) Expected: 11/30/2024 (Approximate), Expires: 11/30/2025 Scheduled Referrals Name Type Priority Associated Diagnoses Orde r Schedule Referral to [facility] Eye Care Outpatient Referral Routine Healthcare maintenance Expected: 11/30/2024 (Approximate), Expires: 11/30/2025 Referral to [facility] Dental Adult Outpatient Referral Routine Healthcare maintenance Expected: 11/30/2024 (Approximate), Expires: 11/30/2025 documented as of this encounter Procedures Procedure Name Priority Date/Time Associated Diagnosis Comments HEMOGLOBIN A1C Routine 11/30/2024 12:08 PM EDT Healthcare maintenance Primary hypertension LIPID PANEL, STANDARD Routine 11/30/2024 12:08 PM EDT Healthcare maintenance Primary hypertension COMPREHENSIVE METABOLIC PANEL Routine 11/30/2024 12:08 PM EDT Healthcare maintenance Primary hypertension documented in this encounter Results * Hemoglobin A1c (11/30/2024 12:08 PM EDT) Hemoglobin A1c 5.5 <6.0 % [facility] Comment:Hemoglobin A1C Refer ence Range Adults: 4.8 - 6.0 % Non diabetic: < 6.0 % Goal: < 7.0 %Additional Action Suggested: > 8.0 %Note: Hemoglobin A1c results are invalid for patients with abnormal amounts of HbF. Blood transfusions may impact the HbA1c concentration in the patient sample. Estimated Average Glucose 111 mg/dL [facility] Comment:eAG = Estimated ave rage glucose which is %A1C expressed asaverage glucose, using the formula of the H2Y-[id number] Glucose study (ADAG), Diabetes Care, Vol.31,#8,Mar. 2007 Blood Venous blood specimen / Unknown 11/30/2024 12:08 PM EDT 11/30/2024 1:12 PM EDT us Cassie Adam NP LAB BLOOD ORDERABLES Final Resul t [facility] [address] [place] [phone] documented in this encounter Visit Diagnoses Diagnosis Healthcare maintenance- Primary Elevated blood pressure reading Elevated blood pressure reading without diagnosis of hypertension Dietary counseling Dietary surveillance and counseling Exercise counseling Obesity (BMI 35.0-39.9 without comorbidity) Primary hypertension Unspecified essential hypertension documented in this encounter Additional Health Concerns Assessment Noted Time PHQ-9 Depression Total Score: 1 12/01/19 25 11:58 AM EDT documented as of this encounter Care Teams Electric Blasting Cap Assembler Relationship Specialty Start Date End Date Cassie Adam NP [address] [place] [address] PCP - General Family Medicine 10/06/23 documented as of this encounter
--- OUTSIDE RECORDS SUMMARY | 2024-11-30 14:44 | XMS_ITS | Encounter Summary ---
Author Organization [employer] [facility] Address [address] [place] [address] [address] [place] [address] Care Team Providers Care Bearing Ring Assembler Name Role Phone Nehal Bailey EDDY CURRENT INSPECTOR Primary Care Provider [phone] Cassie Adam NP Primary Care Provider [phone] Encounter Details Date Type Department Care Team (Late st Contact Info) Description 08/20/2022 Abstract [facility] [address] [place] [phone] Nehal Bailey FNP [address] [place] [address] Dept of [place] [address] Social History Tobacco Use Types Packs/Day Years [...] Description 01/24/2025 11:15 AM EDT Office Visit [facility] [address] [place] [phone] Cassie Adam NP [address] [place] [address] documented as of this encounter Visit Diagnoses Not on filedocumented in this encounter Care Teams Bearing Ring Assembler Relationship Specialty Start Date End Date Nehal Bailey FNP PCP - General Family Medicine 03/03/22 05/29/23 Cassie Adam NP [address] [place] [address] PCP - General Family Medicine 10/06/23 documented as of this encounter
--- OUTSIDE RECORDS SUMMARY | 2024-11-30 14:44 | XMS_ITS | Clinical Summary ---
Author Organization [employer] Address [address] [facility] 7[address] [place] [address] Care Team Providers Care Director Traffic And Planning Name Role Phone KiaCassie JOSUÉ Primary Care Provider Allergies No known active allergies Medications fluticasone (Flonase) 50 MCG/ACT nasal spray Administer 1-2 sprays into affected nostril(s) at bed time. 01/18/20 22 Active triamcinolone (Kenalog) 0.1 % creamIndicati ons:Chronic eczema of hand Apply topically if needed in the morning and at bedtime (eczema, hands). Mix tube with container of CeraVe Moisturizing Cream 80 g 1 08/20/20 22 Active acetaminophen (Tylenol) 500 MG tablet Take 2 tablets (1,000 mg) by mouth every 6 (six) hours if needed for moderate pain or fever for up to 25 doses. 50 tablet 12/10/19 24 Active tiZANidine (Zanaflex) 2 MG tablet Take 1 tablet (2 mg) by mouth every 8 (eight) hours if needed for muscle spasms for up to 10 days. 30 tablet 12/10/19 24 Active ibuprofen 400 MG tablet Take 1 tablet (400 mg) by mouth every 6 (six) hours if needed for moderate pain or fever for up to 30 doses. 30 tablet 05/10/20 24 Active losartan (Cozaar) 50 MG tablet Take 1 tablet (50 mg) by mouth Once per day. 30 tablet 5 12/01/19 25 026 Active ibuprofen 400 MG tablet Take 1 tablet by mouth in the morning and 1 tablet at noon and 1 tablet in the evening and 1 tablet before bedtime. 06/14/20 22 025 Discontinued(M ed list cleanup (will not trigger notification to Pharmacy)) acetaminophen (Tylenol) 500 MG tablet Take 2 tablets by mouth in the morning and 2 tablets at noon and 2 tablets in the evening and 2 tablets before bedtime. 06/14/20 22 025 Discontinued(M ed list cleanup (will not trigger notification to Pharmacy)) losartan (Cozaar) 50 MG tablet Take 1 tablet (50 mg) by mouth Once per day. 30 tablet 5 05/10/20 24 025 Discontinued(R eorder (will not trigger notification to Pharmacy)) Active Problems Problem Noted Date Diagnosed Date Healthcare maintenance 11/30/2024 Dietary counseling 11/30/2024 Exercise counseling 11/30/2024 Obesity (BMI 35.0-39.9 without comorbidity) 03/2025 Hepatomegaly 09/14/2024 Hepatic steatosis 09/14/2024 Preseptal cellulitis [...] Encounters Date Type Department Care Team Description 11/30/2024 11:00 AM EDT Office Visit [address] [address] Cassie Adam NP Healthcare maintenance (Primary Dx); Elevated blood pressure reading; Dietary counseling; Exercise counseling; Obesity (BMI 35.0-39.9 without comorbidity); Primary hypertension 11/30/2024 Travel 11/23/2024 Patient Outreach [facility] [address] [place] [address] Cassie Adam NP Pre-visit Planning (SDOH negative, Tobacco screening negative.) 11/19/[address] [address] Anastasiya Recinos MA Chart Prep 11/08/[address] [address] Daphne Rico RN Results 11/05/2024 Population Health Risk Score Community [facility] ([facility]) Department [address] [address] Provider, Population Health Generic 11/02/2024 Telephone [facility] [address] [place] [phone] Trent Ventura MD 11/02/2024 Orders Only [facility] [address] [place] [phone] Trent Ventura MD Ovarian mass, left (Primary Dx) 11/01/2024 9:30 AM EDT Office Visit [address] [address] Otoniel Chaudhari CNM Cervical cancer screening (Primary Dx); Encounter for IUD removal; Axillary mass, right 11/01/2024 Orders Only [address] [address] Otoniel Chaudhari CNM 11/01/2024 Travel 10/26/2024 9:00 AM EST Office Visit [address] [address] Otoniel Chaudhari, N[place] Mechanical breakdown of intrauterine contraceptive device, subsequent encounter (Primary Dx); Ovarian mass, left 10/26/2024 Travel 10/13/2024 Travel 10/12/2024 Telephone [facility] [address] [place] [phone] Trent Ventura MD 10/12/2024 Orders Only [facility] [address] [place] [phone] Trent Ventura MD IUD migration, initial encounter (Primary Dx); Adnexal cyst 09/14/2024 Telephone [facility] [address] [place] [phone] Trent Ventura MD 09/14/2024 Orders Only [facility] [address] [place] [phone] Trent Ventura MD Abnormal CT scan, pelvis [...] Mass Index 37.53 11/30/2024 11:22 AM EDT Plan of Treatment Upcoming Encounters Date Type Department Care Team (Late st Contact Info) Description 01/24/2025 11:15 AM EDT Office Visit [facility] [address] [place] [address] Cassie Adam NP [address] [place] [address] Health Maintenance Due Date Last Done Comments DTaP/Tdap/Td Vaccines (1 - Tdap) 1999 Hepatitis A Vaccines (1 of 2 - Risk 2-dose series) 1999 Hepatitis B Vaccines (1 of 3 - 19+ 3-dose series) 1999 COVID-19 Vaccine (3 - 2024-25 season) 2024 01/13/2021, 12/16/2020 Influenza Vaccine (#1) 2024 Family Planning (PISQ) 11/01/2025 11/01/2024 Alcohol/Substance Use Screening 11/30/2025 11/30/2024 Depression Screening 11/30/2025 11/30/2024, 12/01/19 SDOH Screening 11/30/2025 11/30/2024 Tobacco Screening 11/30/2025 11/30/2024 Mammogram 11/08/2026 11/08/2024, 10/23, 06/27/2022, Additional history exists Cervical Cancer Screening 11/01/2029 HPV/Cotest 11/01/2029 11/01/2024 Pap Smear 11/01/2029 11/01/2024 Lipid Panel 11/30/2029 11/30/2024, 02/07/2023 Zoster Vaccines (1 of 2) 2030 RSV [...] 12:08 PM EDT Healthcare maintenance Primary hypertension BI MAMMOGRAM DIAGNOSTIC TOMOSYNTHESIS BILATERAL Urgent 11/08/2024 12:05 PM EDT Axillary mass, right BI US BREAST LIMITED RIGHT Urgent 11/08/2024 12:00 PM EDT Axillary mass, right PAP SMEAR Routine 11/01/2024 9:02 AM EDT Cervical cancer screening HPV DNA, LOW/HIGH RISK Routine 11/01/2024 9:02 AM EDT MR PELVIS W AND WO CONTRAST Routine 10/30/2024 12:55 PM EST Adnexal cyst US PELVIS TRANSVAGINAL Urgent 10/11/2024 12:[address] scan, pelvis HEPATITIS C AB W/REFL TO HCV RNA, QN, PCR Routine 02/07/2023 10:04 AM EDT Health care maintenance HIV 1/2 ANTIGEN/ANTIBODY, FOURTH GENERATION W/RFL Routine 02/07/2023 10:04 AM EDT Health care maintenance from Last 3 Months or Most Recently Relevant to Health Maintenance Results * Hemoglobin A1c (11/30/2024 12:08 PM EDT) Hemoglobin A1c 5.5 <6.0 % [facility] Comment:Hemoglobin A1C Refer ence Range Adults: 4.8 - 6.0 % Non diabetic: < 6.0 % Goal: < 7.0 %Additional Action Suggested: > 8.0 %Note: Hemoglobin A1c results are invalid for patients with abnormal amounts of HbF. Blood transfusions may impact the HbA1c concentration in the patient sample. Estimated Average Glucose 111 mg/dL [facility] Comment:eAG = Estimated ave rage glucose which is %A1C expressed asaverage glucose, using the formula of the O0Q-RnuqubuCwlkzni Glucose study (ADAG), Diabetes Care, Vol.31,#8,Mar. 2007 Blood Venous blood specimen / Unknown 11/30/2024 12:08 PM EDT 11/30/2024 1:12 PM EDT us Cassie Kia [facility] LAB BLOOD ORDERABLES Final Resul t [facility] [address] [place] [place] [phone] * BI Mammogram Diagnostic Tomosynthesis Bilateral (11/08/2024 12:05 PM EDT) Anatomical Region Laterality Modality Breast Bilateral Mammography 11/08/2024 12:0 5 PM EDT Narrative 11/08/2024 1:18 PM EDT ? [facility] ? [address] ?[place] [address] ? Mammography Report ? Signed ? Patient: Apple Schwab ?MR#: M ?? [id number] ? : 1980 ?Acct:[id number] ? Age/Sex: 44 / F ?ADM Date: 11/08/24 ? Loc: HO.MAMMO ? Attending Dr: Otoniel Chaudhari CNM ? Ordering Physician: OTONIEL CHAUDHARI CNM ?Results: 2 ?? Benign Findings ? Date of Service: 11/08/ ?Follow Up: 1 Year From Orig ?? inal Mammogram ? Procedure(s): MM tomosynthesis diagnostic BI ?? Accession Number(s): [id number] ? cc: OTONIEL CHAUDHARI CNHalle ? EXAMINATION: ?? MM DIAGNOSTIC DIGITAL BREAST [...] ??Agata Dugan DO ??11/08/2024 01:15 PM EDT ?? RP ? Dictated By: ?Agata Dugan DO ? Signed By: ?<Electronically signed by Agata Dugan, DO in OV> ? 11/08/24 1315 ? DD/ 1205 ? TD/TT: 11/08/24 1225 ? Secretary Board Of Commissioners: ? Procedure Note Jerson, Image - 11/08/2024 [place] [facility] [address] [place] [address] Mammography Report Signed Patient: Figueroa Schwab#: M [id number] : 1980Acct:[id number] Age/Sex: 44 / FADM Date: 11/08/24 Loc: HO.MAMMO Attending Dr: Otoniel Chaudhari CNM Ordering Physician: OTONIEL CHAUDHARIMResults: 2 Benign Findings Date of Service: 11/08/24Follow Up: 1 Year From [facility] Mammogram Procedure(s): MM tomosynthesis diagnostic BI Accession Number(s): [id number] cc: OTONIEL CHAUDHARI CNM EXAMINATION: MM DIAGNOSTIC [...] 11/08/24 1315 DD/ 1205 TD/TT: 11/08/24 1225 Secretary Board Of Commissioners: us Otoniel Chaudhari CNM IMG BI PROCEDURES Final R esult * BI US Breast Limited Right (11/08/2024 12:00 PM EDT) Anatomical Region Laterality Modality Breast Right Ultrasound 11/08/2024 12:0 0 PM EDT Narrative 11/08/2024 1:18 PM EDT ? [facility] ? [address] ?[place] [address] ? Ultrasound Report ? Signed ? Patient: Apple Schwab ?MR#: M ?? [id number] ? : 1980 ?Acct:[id number] ? Age/Sex: 44 / F ?ADM Date: 11/08/24 ? Loc: HO.MAMMO ? Attending Dr: Otoniel Chaudhari CNM ? Ordering Physician: OTONIEL CHAUDHARI CNM ?? Date of Service: 11/08/24 ?? Procedure(s): US breast RT limited ?? Accession Number(s): [id number] ? cc: OTONIEL CHAUDHARI CNM ? EXAMINATION: [...] of visit by the ?? technologist. ? US/US breast RT limited ?? IMPRESSION: ?? Decreased size of right [...] in OV> ? 11/08/24 1315 ? DD/ 1200 ? TD/TT: 11/08/24 1244 ? Secretary Board Of Commissioners: ? Procedure Note Dongildater, Image - 11/08/2024 [place] [facility] [address] [place] [address] Ultrasound Report Signed Patient: Pramod SchwabRodolfo#: M [id number] : 1980Acct:[id number] Age/Sex: 44 / FADM Date: 11/08/24 Loc: HO.MAMMO Attending Dr: Otoniel Chaudhari CNM Ordering Physician: OTONIEL CHAUDHARI CNM Date of Service: 11/08/24 Procedure(s): US breast RT limited Accession Number(s): [id number] cc: OTONIEL CHAUDHARI CNM EXAMINATION: MM DIAGNOSTIC [...] at time of visit by the technologist. US/US breast RT limited IMPRESSION: Decreased size of right axillary sebaceous [...] Dugan DO in OV> 11/08/24 1315 DD/ 1200 TD/TT: 11/08/24 1244 Secretary Board Of Commissioners: Otoniel Chaudhari CNM IMG US PROCEDURES Final R esult * HPV DNA, Low/High Risk (11/01/2024 9:02 AM EDT) HPV High Risk Negative Negative [facility] HPV Genotype 16 Negative Negative [facility] HPV Genotype 18 Negative Negative [facility] Comment:HPV testing performe d at [facility] (CLIA#[id number]), [address] [place] [address].Testing for HPV was performed using the [employer] [...] 9:02 AM EDT 11/02/2024 9:30 AM EDT Otoniel Chaudhari CNM LAB BLOOD ORDERABLES Tereza l Result [facility] [address] [place] [phone] * Pap Smear (11/01/2024 9:02 AM EDT) Swab Cervix uteri structure / Unknown 11/01/2024 9:02 AM EDT 11/02/2024 9:30 AM EDT Narrative [facility] - 11/04/2024 7:05 AM EDT ----- ------- Name: Apple Schwab ?Age/Sex: 44/F ? : 1980 Unit#: [id number] ?? Attend Dr: OTONIEL CHAUDHARI CNM ?Re11/01/24 ?Status: DEP REF ? Location: HO.HHCLNP ? Disch: ? ----- ------- SPEC : [id number] ? RECD: 11/02/24-929 ? STATUS: ??SOUT ? REQ NUM: [id number] ? BRITANY: 11/01/24 ? SUBM : OTONIEL CHAUDHARI CNM ? ENTERED: ??11/02/24 ?SP [...] ------- Signed (signature on file) DENIS Hyde ([facility]) 11/04/24 07 ? ----- ------- ? END OF REPORT ? us Otoniel Chaudhari CNM LAB CYTOLOGY ORDERABLES F inal Result [facility] [address] [facility] [place] [address] [phone] * MR Pelvis w/ and w/o Contrast (10/30/2024 12:55 PM EST) Anatomical Region Laterality Modality Body, Pelvis Magnetic Resonan ce 10/30/2024 12:5 5 PM EST Narrative 11/02/2024 7:36 AM EDT ? [facility] ?[address] ?[place] [address] ? Magnetic Resonance Report ? Signed ? Patient: Apple Schwab ?MR#: M ?? [id number] ? : 1980 ?Acct:[id number] ? Age/Sex: 44 / F ?ADM Date: 10/30/24 ? Loc: HO.MRI ? Attending Dr: Trent Ventura MD ? Ordering Physician: TRENT VENTURA MD ?? Date of Service: 10/30/24 ?? Procedure(s): MR pelvis wo/w con ?? Accession Number(s): [id number] ? cc: TRENT VENTURA MD ? EXAMINATION: [...] DD/ 1255 ? TD/TT: 10/30/24 1325 ? Secretary Board Of Commissioners: ? Procedure Note Jerson, Jeremiah - 11/02/[address] [address] Magnetic Resonance Report Signed Patient: Figueroa Schwab#: M [id number] : 1980Acct:[id number] Age/Sex: 44 / FADM Date: 10/30/24 Loc: HO.MRI Attending Dr: Trent Ventura MD Ordering Physician: TRENT VENTURA MD Date of Service: 10/30/24 Procedure(s): MR pelvis wo/w con Accession Number(s): [id number] cc: TRENT VENTURA MD EXAMINATION: MR PELVIS [...] Bola Wills MD 11/02/2024 07:33 AM EDT Dictated By: Bola Wills MD Signed By: <Electronically signed by Bola Wills MD in OV> 11/02/24 0733 DD/ 1255 TD/TT: 10/30/24 1325 Secretary Board Of Commissioners: us Trent Ventura MD IMG MRI PROCEDURES Final Result * US Pelvis Transvaginal (10/11/2024 12:40 PM EST) Anatomical Region Laterality Modality Pelvis Ultrasound 10/11/2024 12:4 0 PM EST Narrative 10/11/2024 12:41 PM EST ? [facility] ?[address] ?[place] [address] ? Ultrasound Report ? Signed ? Patient: Apple Schwab ?MR#: M ?? [id number] ? : 1980 ?Acct:[id number] ? Age/Sex: 44 / F ?ADM Date: 10/11/24 ? Loc: HO.US ? Attending Dr: Trent Ventura MD ? Ordering Physician: TRENT VENTURA MD ?? Date of Service: 10/11/24 ?? Procedure(s): US pelvic and transvaginal ?? Accession Number(s): [id number] ? cc: TRENT VENTURA MD ? CLINICAL [...] DD/ 1240 ? TD/TT: 10/11/24 1240 ? Secretary Board Of Commissioners: ? Procedure Note Jeremiah Arthur - 10/11/2024 [place] [address] Ultrasound Report Signed Patient: Figueroa Schwab#: M [id number] : 1980Acct:[id number] Age/Sex: 44 / FADM Date: 10/11/24 Loc: HO.US Attending Dr: Trent Ventura MD Ordering Physician: TRENT VENTURA MD Date of Service: 10/11/24 Procedure(s): US pelvic and transvaginal Accession Number(s): [id number] cc: TRENT VENTURA MD CLINICAL HISTORY: 6 [...] 10/11/24 1241 DD/ 1240 TD/TT: 10/11/24 1240 Secretary Board Of Commissioners: us Trent Ventura MD IM US PROCEDURES Final Result * Hepatitis C Antibody with Reflex to HCV, RNA, Quantitative, Real-Time PCR (02/07/2023 10:04 AM EDT) Hepatitis C Antibody NON-REACT MIRA NON-REACT MIRA Core [facility]ixt Index <0.02 <1.00 Core St[facility]xt Comment: HCV antibody was non-reactive. There is no laboratory evidence of HCV infection. In most cases, no further action is required. However, if recent HCV exposure is suspected, a test for HCV RNA (test code 89949) is suggested. For additional information please refer to http://education.Gruppo MutuiOnline/faq/LBE32n1 (This link is being provided for informational/ educational purposes only.) Blood Venous blood specimen / Unknown 02/07/2023 10:04 AM EDT 02/07/2023 10:04 AM EDT Narrative [facility] - 02/17/2023 6:29 PM EDT FASTING:YES FASTING: YES Nehal Bailey CUSTOMS COMPLIANCE ANALYST LAB BLOOD ORDERABLES Final Result [facility] [address], [facility] [place] [address] Receptor [facility] [address] [place] [address] * HIV-1/2 Antigen and Antibodies, Fourth Generation, with Reflexes (02/07/2023 10:04 AM EDT) [facility] HIV Antigen/Antibody, 4th Generation NON-REAC TIVE NON-REAC TIVE Receptor [employer] [facility] Comment: HIV-1 antigen and HIV-1/HIV-2 antibodies [...] ?? For additional information please refer to http://education.Touch of Classic.Dealentra/faq/KYW708 (This link is being provided for informational/ educational purposes only.) The performance of this assay has not been clinically validated in patients less than 2 years old. Blood Venous blood specimen / Unknown 02/07/2023 10:04 AM EDT 02/07/2023 10:04 AM EDT Narrative [facility] - 02/17/2023 6:29 PM EDT FASTING:YES FASTING: YES Nehal Bailey CUSTOMS COMPLIANCE ANALYST LAB BLOOD ORDERABLES Final Result [facility] [address], [place] [address] Receptor [employer] [facility] [address] [place] [address] from Last 3 Months or Most Recently Relevant to Health Maintenance Insurance [facility] C3 Care Teams Director Traffic And Planning Relationship Specialty Start Date End Date Cassie Adam NP [address] [place] [phone] PCP - General Family Medicine 10/06/23
[2024-11-30 14:45] LABS: TSH reflex Free T4 2.32 uIU/mL (0.32-4.0)
== END 2024-11-30 12:07 | disposition home or self-care (01) ==
LOC: HO.HHCL 12:06
PROVIDERS: Visit Provider Nurse Practitioner Family
DX: Z00.00 Encounter for general adult medical examination without abnormal findings (principal); I10 Essential (primary) hypertension; E66.9 Obesity, unspecified
CPT/HCPCS: 36415; 80053; 80061; 83036; 84443

== ENCOUNTER 2024-12-28 14:04 | Outpatient (AMB) | payer MEDICAID, SELFPAY ==
--- NOTE | 2024-12-28 14:11 | A.OFFVIS_ITS ---
Vital Signs 12/28/24 14:13 Height 5 ft 2 in Weight 200 lb BMI 36.6 BP 110/70 Intake Visit Reasons: ovarian cyst E Learning Manager Required: Yes E Learning Manager Language: Skidder Loader Services: E Learning Manager Present (in person) E Learning Manager Name: Brea PRATT Information Interpreted: non-clinical & clinical Accompanied by: Self / Same As Patient Allergies No Known Allergies Allergy (Unverified 12/28/24 14:14) Is last menstrual period known: Yes Last menstrual period: 12/08/24 HPI Comments Details: The patient is presenting for [facility] regarding adnexal cyst on ultrasound and MRI and low-lying IUD. 10/11/2024 pelvic ultrasound showed the following: IMPRESSION: Low-lying IUD located within the central portion of the lower endometrium (1 of the arms may be located in the subendometrial portion of the myometrium). 5.1 x 7 x 5.2 cm left adnexal (either paraovarian cyst or exophytic cyst arising from the left ovary) with questionable small eccentric nodular component on the cine clips, corresponds to the cyst seen on the recent CT scan. Further evaluation with MRI recommended. 10/30/2024 pelvic MRI showed the following: IMPRESSION: 1. 7.1 x 5.2 x 4.9 cm left adnexal cyst which appears to be arising from the ovary. There is a thin posterior septation and mild wall thickening and enhancement of the lateral wall. Neoplasm is not excluded, and laparoscopy should be considered. 2. 9 mm subserosal fibroid. IUD in the lower uterine segment. Last mammogram in 11/16 was BI-RADS 2 Last co testing in 11/16 was negative IUD was removed few weeks ago with the patient is PCP The patient is having regular menstrual cycles and light with no pelvic pain or any other complaints. [facility] Medical History HTN (hypertension) Surgical History Hx of tubal ligation Family History Mother HTN (hypertension) Diabetes Maternal Grandmother Diabetes Social History Household Members: Spouse and Children Housing: Apartment Alcohol intake: never Patient Tobacco Use Status: Never used Tobacco Current occupational status: employed Current occupation: PACKAGING COORDINATOR Sexually active: Yes Sexual orientation: Straight/Heterosexual Gender identity: Female Female Reproductive History Menstrual Age of Menarche: 11 Duration of menses: 6-7 days Date of last menstrual period: 12/08/24 Total pregnancies: 4 Full term: 3 Number of Living Children: 3 Ab spontaneous: 1 Review of Systems Const All systems reviewed & are unremarkable except as noted in HPI and below Reports as per HPI and Reports no additional complaints GI Reports no additional complaints Reports no additional complaints Physical Exam Vital Signs: Last Vital Signs BP 110/70 12/28/24 14:13 BMI result Body Mass Index 36.6 Results AMB Test Urine AMB Test Urine Negative Last Edit by Brea Cotto CMA on 14:36 Assessment & Plan Assessment & Plan (1) Complex ovarian cyst: Comment: Left side Code(s): N83.299 - Other ovarian cyst, unspecified side Category: Medical Plan: Urine test done in the office was negative Discussed with the patient the complex ovarian cyst by ultrasound and pelvic MRI. Discussed with the patient the Ultrasound and MRI findings, the main limitation of transvaginal ultrasonography alone as a diagnostic tool to distinguish benign from malignant masses relates to its lack of specificity and low positive predictive value for cancer. The differential diagnosis discussed with the patient includes the following but not limited to: benign and malignant gynecological and non-gynecological causes. Since last imaging, pelvic MRI was on 10/30/2024, recommended repeat pelvic ultrasound to check if complex ovarian cyst is persistent or not and will treat accordingly. Pelvic ultrasound ordered, instructions given the patient to schedule an ultrasound follow-up appointment within 1-2 weeks. 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 Discussed with the patient the options of treatment including expectant management versus hysterectomy; the pros and cons, risks benefits of each approach were discussed with the patient including the fact that in cases of myosarcoma, surgical treatment can lead to early diagnosis and positively affects the prognosis; after further discussion, the patient decided to proceed with expectant management. Will repeat pelvic ultrasound periodically. Instructions given to patient to call in case any of the following occurs: pressure symptoms, abnormal uterine bleeding, pelvic pain; and to schedule a six-months pelvic ultrasound (order placed) and a follow-up appointment . All questions answered, the patient verbalized understanding and agreed with the plan . Orders: Orders US pelvic and transvaginal Today N83.299 - Other ovarian cyst, unspecified side Coding Level of Care Code New Pt Level 3 (29237) Diagnoses Complex ovarian cyst N83.299 Uterine myoma D25.9
[2024-12-28 14:13] VITALS: BP 110/70; BMI 36.6
--- OUTSIDE RECORDS SUMMARY | 2024-12-28 15:22 | XMS_ITS | Encounter Summary ---
Author Organization [employer] Address [address] [place] [address] [address] [place] [address] Care Team Providers Care Color Making Supervisor Name Role Phone Nehal BaileyP Primary Care Provider [phone] Cassie Adam NP Primary Care Provider [phone] Encounter Details Date Type Department Care Team (Late st Contact Info) Description 08/20/2022 Abstract [facility] [address] [place] [phone] Nehal Bailey FNP [address] [place] [address] Dept [place] [address] Social History Tobacco Use Types Packs/Day Years [...] Encounters Date Type Department Care Team (Late Contact Info) Description 01/24/2025 11:15 AM EDT Office Visit [facility] [address] [place] [phone] Cassie Adam NP [address] [place] [address] documented as of this encounter Visit Diagnoses Not on filedocumented in this encounter Care Teams Color Making Supervisor Relationship Specialty Start Date End Date Nehal Bailey FNP PCP - General Family Medicine 03/03/22 05/29/23 Cassie Adam NP [address] [place] [address] PCP - General Family Medicine 10/06/23 documented as of this encounter
--- OUTSIDE RECORDS SUMMARY | 2024-12-28 15:22 | XMS_ITS | Clinical Summary ---
Author Organization [employer] Address [address] [place] [address] Care Team Providers Care Coil Tier Name Role Phone Cassie Adam JOSUÉ Primary Care Provider [phone] Allergies No known active allergies Medications fluticasone [...] 30 tablet 5 12/01/19 25 026 Active losartan (Cozaar) 50 MG tablet Take 1 tablet (50 mg) by mouth Once per day. 30 tablet 5 05/10/20 24 04/08/2 025 Discontinued(R eorder (will not trigger notification to Pharmacy)) Active Problems Problem Noted Date Diagnosed Date Healthcare maintenance 11/30/2024 Dietary counseling 11/30/2024 Exercise counseling 11/30/2024 Obesity (BMI 35.0-39.9 without comorbidity) 03/2025 Elevated LFTs 11/30/2024 Primary hypertension 11/30/2024 Hepatomegaly 09/14/2024 Hepatic steatosis 09/14/2024 Preseptal cellulitis [...] Encounters Date Type Department Care Team Description 12/08/2024 Telephone [facility] [address] [place] [address] Anastasiya Recinos MA Results 11/30/2024 11:00 AM EDT Office Visit [facility] [address] [place] [address] Cassie Adam NP Healthcare maintenance (Primary Dx); Elevated blood pressure reading; Dietary counseling; Exercise counseling; Obesity (BMI 35.0-39.9 without comorbidity); Primary hypertension; Elevated LFTs 11/30/[address] [address] Cassie Adam NP Results; Referral 11/30/2024 Travel 11/23/2024 Patient Outreach [facility] [address] [place] [address] Cassie Adam NP Pre-visit Planning (SDOH negative, Tobacco screening negative.) 11/19/[address] [address] Anastasiya Recinos MA Chart Prep 11/08/[address] [address] Daphne Rico RN Results 11/05/2024 Population Health Risk Score [facility] () Department [address] [place] [phone] Provider, Population Health Generic 11/02/2024 Telephone [facility] [address] [place] [phone] Trent Fang MD 11/02/2024 Orders Only [facility] [address] [place] [phone] Trent Fang MD Ovarian mass, left (Primary Dx) 11/01/2024 9:30 AM EDT Office Visit [address] [address] Otoniel Chaudhari CNM Cervical cancer screening (Primary Dx); Encounter for IUD removal; Axillary mass, right 11/01/2024 Orders Only [address] [address] Otoniel Chaudhari CNM 11/01/2024 Travel 10/26/2024 9:00 AM EST Office Visit [address] [address] Otoniel Chaudhari CNM Mechanical breakdown of intrauterine contraceptive device, subsequent encounter (Primary Dx); Ovarian mass, left 10/26/2024 Travel 10/13/2024 Travel 10/12/2024 Telephone [facility] [address] [place] [address] Trent Fang MD 10/12/2024 Orders Only [facility] [address] [place] [address] Trent Fang MD IUD migration, initial encounter (Primary Dx); Adnexal cyst from Last 3 Months Immunizations Name Administration [...] Description 01/24/2025 11:15 AM EDT Office Visit [facility] [address], [place] [phone] Cassie Adam NP [address] [place], [place] [phone] Health Maintenance Due Date Last Done Comments DTaP/Tdap/Td Vaccines (1 - Tdap) 1999 Hepatitis A Vaccines (1 of 2 - Risk 2-dose series) 1999 Hepatitis B Vaccines (1 of 3 - 19+ 3-dose series) 1999 COVID-19 Vaccine (3 - 2023- season) 2024 01/13/2021, 12/16/2020 Influenza Vaccine (#1) 2024 Family Planning (PISQ) 11/01/2025 11/01/2024 Alcohol/Substance Use Screening 11/30/2025 11/30/2024 Depression Screening 11/30/2025 11/30/2024, 12/01/19 SDOH Screening 11/30/2025 11/30/2024 Tobacco Screening 11/30/2025 11/30/2024 Mammogram 11/08/2026 11/08/2024, 0302/2025, 06/27/2022, Additional history exists Cervical Cancer Screening [...] Procedure Name Priority Date/Time Associated Diagnosis Comments TSH W/REFLEX TO FT4 Routine 11/30/2024 1 2:08 PM EDT Healthcare maintenance Obesity (BMI 35.0-39.9 without comorbidity) HEMOGLOBIN A1C Routine 11/30/2024 12:08 PM EDT [...] Recently Relevant to Health Maintenance Results * TSH W/Reflex to FT4 (11/30/2024 12:08 PM EDT) TSH reflex Free T4 2.32 0.32 - 4.0 uIU/mL [facility] Blood Venous blood specimen / Unknown 11/30/2024 12:08 PM EDT 11/30/2024 1:12 PM EDT us Cassie Adam SHALE MINER BLASTING LAB BLOOD ORDERABLES Final Resul t [facility] [address] [place] [address] [phone] * Hemoglobin A1c (11/30/2024 12:08 PM EDT) Hemoglobin A1c 5.5 <6.0 % [facility] Comment:Hemoglobin A1C Refer ence Range Adults: 4.8 - 6.0 % Non diabetic: < 6.0 % Goal: < 7.0 %Additional Action Suggested: > 8.0 %Note: Hemoglobin A1c results are invalid for patients with abnormal amounts of HbF. Blood transfusions may impact the HbA1c concentration in the patient sample. Estimated Average Glucose 111 mg/dL [facility] Comment:eAG = Estimated ave rage glucose which is %A1C expressed asaverage glucose, using the formula of the Y5G-HycmagzIzzmpma Glucose study (ADAG), Diabetes Care, Vol.31,#8,Mar. 2007 Blood Venous blood specimen / Unknown 11/30/2024 12:08 PM EDT 11/30/2024 1:12 PM EDT us Cassie Adam SHALE MINER BLASTING LAB BLOOD ORDERABLES Final Resul t [facility] [address] [place] [address] [phone] * (ABNORMAL) Lipid Panel, Standard (11/30/2024 12:08 PM EDT) Triglycerides 100 <150 mg/dL [facility] Comment:Desirable Triglyceri de: less than 150 mg/dLBorderline High Triglyceride 150-199 mg/dLHigh Triglyceride: 200-499 mg/dLVery High Triglyceride: greater than or equal to 5OO mg/dL Cholesterol 185 <200 mg/dL [facility] Comment:Desirable Cholestero l: less than 200 mg/dLBorderline High Cholesterol: 200-239 mg/dLHigh Cholesterol: greater than 239 mg/dL LDL Cholesterol Calculated 117(H) <100 mg/dL [facility] Comment:Desirable LDL: less than 100 mg/dLNear Optimal/Above Optimal LDL: 110- 129 mg/dLBorderline High LDL: 130-159 mg/dLHigh LDL: 160-189 mg/dLVery High LDL: greater than or equal to 190 mg/dL HDL Cholesterol 48 >40 mg/dL [facility] Comment:Desirable HDL: great er than 40 mg/dL Note: This HDL assay may give artificially low results in patients with liver disease. Blood Venous blood specimen / Unknown 11/30/2024 12:08 PM EDT 11/30/2024 1:12 PM EDT us Cassie Adam SHALE MINER BLASTING LAB BLOOD ORDERABLES Final Resul t Performing Organization Address City/[facility]/ZIP Co de Phone Number [facility] [address] [place] [address] [phone] * (ABNORMAL) Comprehensive Metabolic Panel (11/30/2024 12:08 PM EDT) Sodium 139 135 - 145 mmol/L [facility] Potassium 3.7 3.3 - 5.1 mmol/L [facility] Chloride 109(H) 96 - 108 mmol/L [facility] Carbon Dioxide 24 22 - 29 mmol/L [facility] Anion Gap 10(L) 12 - 20 [facility] Urea Nitrogen (BUN) 9 9 - 16 mg/dL [facility] Creatinine, Serum 0.58 0.5 - 1.4 mg/dL [facility] Estimated Glomerular Filt Rate >60 [facility] Comment:Chronic Kidney Disea se: Estimated GFR < 60 mL/min/1.51l4Fwtfsv Kidney Disease: Estimated GFR < 15 mL/min/1.73m2 Glucose 79 60 - 115 mg/dL [facility] Calcium 9.2 8.4 - 10.2 mg/dL [facility] Bilirubin, Total 0.5 0.0 - 1.0 mg/dL [facility] Aspartate Amino Transferase 76(H) 5 - 31 U/L [facility] Alanine Aminotransferase 111(H) 0 - 31 U/L [facility] Total Protein 7.7 6.5 - 8.0 g/dL [facility] Albumin Level 4.3 3.5 - 5.0 g/dL [facility] Alkaline Phosphatase 81 39 - 117 U/L [facility] Blood Venous blood specimen / Unknown 11/30/2024 12:08 PM EDT 11/30/2024 1:12 PM EDT us Cassie Adam SHALE MINER BLASTING LAB BLOOD ORDERABLES Final Resul t [facility] [address] [place] [address] [phone] * BI Mammogram Diagnostic Tomosynthesis Bilateral (11/08/2024 12:05 PM EDT) Anatomical Region Laterality Modality Breast Bilateral Mammography 11/08/2024 12:0 5 PM EDT Narrative 11/08/2024 1:18 PM EDT ? [facility] ? [address] ?[place] [address] ? Mammography Report ? Signed ? Patient: Apple Schwab ?MR#: M ?? [id number] ? : 1980 ?Acct:[id number] ? Age/Sex: 44 / F ?ADM Date: 11/08/24 ? Loc: HO.MAMMO ? Attending Dr: Otoniel Chaudhari CNM ? Ordering Physician: OTONIEL CHAUDHARI CNM ?Results: 2 ?? Benign Findings ? Date of Service: 11/08/ ?Follow Up: 1 Year From Orig ?? inal Mammogram ? Procedure(s): MM tomosynthesis diagnostic BI ?? Accession Number(s): [id number] ? cc: OTONIEL CHAUDHARI CNM ? EXAMINATION: [...] DD/ 1205 ? TD/TT: 11/08/24 1225 ? Sketch Maker: ? Procedure Note Jerson, Image - 11/08/2024 [facility] [address] [place] [address] [place] [address] Mammography Report Signed Patient: Joshua WilsonsusFigueroa#: M [id number] : 1980Acct:[id number] Age/Sex: 44 / FADM Date: 11/08/24 Loc: HO.MAMMO Attending Dr: Otoniel Chaudhari CNM Ordering Physician: OTONIEL CHAUDHARIMResults: 2 Benign Findings Date of Service: 11/08/24Follow Up: 1 Year From Orig ina Mammogram Procedure(s): MM tomosynthesis diagnostic BI Accession Number(s): [id number] cc: OTONIEL CHAUDHARI CNM EXAMINATION: MM DIAGNOSTIC [...] 11/08/24 1315 DD/ 1205 TD/TT: 11/08/24 1225 Sketch Maker: us Otoniel Chaudhari CNM IMG BI PROCEDURES Final R esult * BI US Breast Limited Right (11/08/2024 12:00 PM EDT) Anatomical Region Laterality Modality Breast Right Ultrasound 11/08/2024 12:0 0 PM EDT Narrative 11/08/2024 1:18 PM EDT ? [facility] ? [address] ?[place] [address] ? Ultrasound Report ? Signed ? Patient: Apple Schwab ?MR#: M ?? [id number] ? : 1980 ?Acct:[id number] ? Age/Sex: 44 / F ?ADM Date: 11/08/24 ? Loc: HO.MAMMO ? Attending Dr: Otoniel Chaudhari CNM ? Ordering Physician: OTONIEL CHAUDHARI CNM ?? Date of Service: 11/08/24 ?? Procedure(s): US breast RT limited ?? Accession Number(s): [id number] ? cc: OTONIEL CHAUDHARI CNM ? EXAMINATION: [...] DD/ 1200 ? TD/TT: 11/08/24 1244 ? Sketch Maker: ? Procedure Note Donotuseinterpreter, Image - 11/08/2024 [place] [facility] [address] [place] [address] Ultrasound Report Signed Patient: Figueroa Schwab#: M [id number] : 1980Acct:[id number] Age/Sex: 44 / FADM Date: 11/08/24 Loc: HOBayronMAMMO Attending Dr: Otoniel Chaudhari CNM Ordering Physician: OTONIEL CHAUDHARI CNM Date of Service: 11/08/24 Procedure(s): US breast RT limited Accession Number(s): [id number] cc: OTONIEL CHAUDHARI CNM EXAMINATION: MM DIAGNOSTIC [...] 11/08/24 1315 DD/ 1200 TD/TT: 11/08/24 1244 Sketch Maker: Otoniel Chaudhari CNM IMG US PROCEDURES Final R esult * HPV DNA, Low/High Risk (11/01/2024 9:02 AM EDT) HPV High Risk Negative Negative [facility] HPV Genotype 16 Negative Negative [facility] HPV Genotype 18 Negative Negative [facility] Comment:HPV testing performe d at [facility] (CLIA#[id number]), [address] [place] [address].Testing for HPV was performed using the [employer] [...] CNM LAB BLOOD ORDERABLES Tereza l Result [facility] [address] [place] [phone] * Pap Smear (11/01/2024 9:02 AM EDT) Swab Cervix uteri structure / Unknown 11/01/2024 9:02 AM EDT 11/02/2024 9:30 AM EDT [facility] - 11/04/2024 7:05 AM EDT ----- ------- Name: Apple Schwab ?Age/Sex: 44/F ? : 1980 Unit#: [id number] ?? Attend Dr: OTONIEL CHAUDHARI CNM ?Re11/01/24 ?Status: DEP REF ? [facility] ? Disch: ? ----- ------- SPEC : [id number] ? RECD: 11/02/24 ? STATUS: ??SOUT ? REQ NUM: [id number] ? BRITANY: 11/01/24-901 ? SUBM DR: OTONIEL CHAUDHARI CNM ? ENTERED: ??11/02/24-953 ?SP TYPE: Pap Smr ?ERIC MURCIA: ? ORDERED: ??Pap Smear ? Interpretation ?? [...] (signature on file) DENIS Hyde (ASCP) 11/04/24 [facility] ? ----- ------- ? END OF REPORT ? us Otoniel Chaudhari CNM LAB CYTOLOGY ORDERABLES F inal Result [facility] [address] [place] [address] [phone] * MR Pelvis w/ and w/o Contrast (10/30/2024 12:55 PM EST) Anatomical Region Laterality Modality Body, Pelvis Magnetic Resonan ce 10/30/2024 12:5 5 PM EST Narrative 11/02/2024 7:36 AM EDT ? [facility] ?[address] ?[place] [address] ? Magnetic Resonance Report ? Signed ? Patient: Apple Schwab ?MR#: M ?? [id number] ? : 1980 ?Acct:[id number] ? Age/Sex: 44 / F ?ADM Date: 10/30/24 ? Loc: HO.MRI ? Attending Dr: Trent Fang MD ? Ordering Physician: TRENT FANG MD ?? Date of Service: 10/30/24 ?? Procedure(s): MR pelvis wo/w con ?? Accession Number(s): [id number] ? cc: TRENT FANG MD ? EXAMINATION: [...] DD/ 1255 ? TD/TT: 10/30/24 1325 ? Sketch Maker: ? Procedure Note Jerson, Image - 11/02/[address] [address] Magnetic Resonance Report Signed Patient: Jacinta SchwabAspen#: M [id number] : 1980Acct:[id number] Age/Sex: 44 / FADM Date: 10/30/24 Loc: HO.MRI Attending Dr: Trent Fang MD Ordering Physician: TRENT FANG MD Date of Service: 10/30/24 Procedure(s): MR pelvis wo/w con Accession Number(s): [id number] cc: TRENT FANG MD EXAMINATION: MR PELVIS [...] 11/02/24 0733 DD/ 1255 TD/TT: 10/30/24 1325 Sketch Maker: us Trent Fang MD IMG MRI PROCEDURES Final Result * US Pelvis Transvaginal (10/11/2024 12:40 PM EST) Anatomical Region Laterality Modality Pelvis Ultrasound 10/11/2024 12:4 0 PM EST Narrative 10/11/2024 12:41 PM EST ? [facility] ?[address] ?[place] [address] ? Ultrasound Report ? Signed ? Patient: Apple Schwab ?MR#: M ?? [id number] ? : 1980 ?Acct:[id number] ? Age/Sex: 44 / F ?ADM Date: 10/11/24 ? Loc: HO.US ? Attending Dr: Trent Fang MD ? Ordering Physician: TRENT FANG MD ?? Date of Service: 10/11/24 ?? Procedure(s): US pelvic and transvaginal ?? Accession Number(s): [id number] ? cc: TRENT FANG MD ? CLINICAL [...] DD/ 1240 ? TD/TT: 10/11/24 1240 ? Sketch Maker: ? Procedure Note Jerson, Jeremiah - 10/11/2024 [place] [address] Ultrasound Report Signed Patient: Figueroa Schawb#: M [id number] : 1980Acct:[id number] Age/Sex: 44 / FADM Date: 10/11/24 Loc: HO.US Attending Dr: Trent Fang MD Ordering Physician: TRENT FANG MD Date of Service: 10/11/24 Procedure(s): US pelvic and transvaginal Accession Number(s): [id number] cc: TRENT FANG MD CLINICAL HISTORY: 6 [...] 10/11/24 1241 DD/ 1240 TD/TT: 10/11/24 1240 Sketch Maker: us Trent Fang MD IM US PROCEDURES Final Result * Hepatitis C Antibody with Reflex to HCV, RNA, Quantitative, Real-Time PCR (02/07/2023 10:04 AM EDT) Hepatitis C Antibody NON-REACT MIRA NON-REACT MIRA [employer] Index <0.02 <1.00 [email or web address] [place] [facility] Comment: HCV antibody was non-reactive. There is no laboratory evidence of HCV infection. In most cases, no further action is required. However, if recent HCV exposure is suspected, a test for HCV RNA (test code 35230) is suggested. For additional information please refer to http://education.[employer]/faq/VPR19a3 (This link is being provided for informational/ educational purposes only.) Blood Venous blood specimen / Unknown 02/07/2023 10:04 AM EDT 02/07/2023 10:04 AM EDT Narrative [facility] - 02/17/2023 6:29 PM EDT FASTING:YES FASTING: YES Nehal Bailey FINE GRADE OPERATOR LAB BLOOD ORDERABLES Final Result Performing Organization Address City/[facility]/ZIP Co de Phone Number [facility] [address], [facility] [phone] [email or web address] [place] [facility] [address] [place] [phone] * HIV-1/2 Antigen and Antibodies, Fourth Generation, with Reflexes (02/07/2023 10:04 AM EDT) [facility] HIV Antigen/Antibody, 4th Generation NON-REAC TIVE NON-REAC TIVE [facility] [place] [facility] Comment: HIV-1 antigen and HIV-1/HIV-2 antibodies [...] ?? For additional information please refer to http://education.[employer]/faq/YAU422 (This link is being provided for informational/ educational purposes only.) The performance of this assay has not been clinically validated in patients less than 2 years old. Blood Venous blood specimen / Unknown 02/07/2023 10:04 AM EDT 02/07/2023 10:04 AM EDT Narrative [facility] - 02/17/2023 6:29 PM EDT FASTING:YES FASTING: YES Nehal Bailey FINE GRADE OPERATOR LAB BLOOD ORDERABLES Final Result Performing Organization Address City/[facility]/ZIP Co de Phone Number [facility] [address], [facility] [phone] [email or web address] [place] [facility] [address] [place] [phone] from Last 3 Months or Most Recently Relevant to Health Maintenance Insurance [facility] C3 Care Teams Coil Tier Relationship Specialty Start Date End Date Cassie Adam NP [address] [place] [phone] PCP - General Family Medicine 10/06/23
== END 2024-12-28 15:01 | disposition home or self-care (01) ==
LOC: HO.HWS 14:04
PROVIDERS: PCP Emergency Medicine; Visit Provider Obstetrics & Gynecology
DX: N83.299 Other ovarian cyst, unspecified side (principal); D25.9 Leiomyoma of uterus, unspecified; Z32.02 Encounter for pregnancy test, result negative
CPT/HCPCS: 99203

== ENCOUNTER → 2024-12-28 14:04 | Outpatient (BNVA) | payer MEDICAID, SELFPAY | PROVIDERS: PCP Emergency Medicine; Visit Provider Obstetrics & Gynecology | DX: N83.299 Other ovarian cyst, unspecified side (principal); D25.9 Leiomyoma of uterus, unspecified | CPT/HCPCS: 81025; 99202 ==

== ENCOUNTER 2025-01-04 10:00 | Outpatient (REF) | payer MEDICAID, SELFPAY ==
--- NOTE | ~2025-01-04 | US_ITS ---
CLINICAL HISTORY: N83.299 - Other ovarian cyst, unspecified side US pelvis transabdominal and transvaginal with Doppler Comparison: US - US PELVIC AND TRANSVAGINAL - 10/11/24 11:31 EST Findings: Transabdominal scanning performed for overall anatomy. Transvaginal scanning performed for additional detail. Anteverted uterus is 8.9 cm length. Normal myometrium. Endometrium 4 mm thickness. No intrauterine device is visualized. Right ovary 3.2 x 1.5 x 2.4 cm. Left ovary 2.5 x 2.2 x 2.4 cm. Left-sided paraovarian cyst measuring 65 mm is present, which is not significantly changed. Normal color Doppler with arterial/venous spectral tracing of both ovaries. No free fluid. IMPRESSION: 1. No acute process. 2. No significant change in left paraovarian cyst. Neoplasm can not be excluded. This document has been electronically signed by: Ledy Flanagan MD on 01/04/2025 15:42:39
--- OUTSIDE RECORDS SUMMARY | 2025-01-04 10:53 | XMS_ITS | Encounter Summary ---
Author Organization [employer] Address [address] [place] [address] 7[address] [place] [address] Care Team Providers Care Aircraft Refueller Name Role Phone Nehal BaileyP Primary Care Provider [phone] Cassie Adam NP Primary Care Provider [phone] Encounter Details Date Type Department Care Team (Late st Contact Info) Description 08/20/2022 Abstract [facility] [address] [place] [phone] Nehal Bailey FNP [address] [place] [address] Dept [place] [address] Social History Tobacco Use Types Packs/Day Years [...] Description 01/24/2025 11:15 AM EDT Office Visit [facility] [address] [place] [phone] Cassie Adam NP [address] [place] [address] 03/10/2025 9:45 AM EDT Office Visit [facility] [address] [place] [address] Marlyn Bermudez, OD [address] [place] [address] documented as of this encounter Visit Diagnoses Not on filedocumented in this encounter Care Teams Aircraft Refueller Relationship Specialty Start Date End Date Nehal Bailey FNP PCP - General Family Medicine 03/03/22 05/29/23 Cassie Adam NP [address] [place] [address] PCP - General Family Medicine 10/06/23 documented as of this encounter
--- OUTSIDE RECORDS SUMMARY | 2025-01-04 10:53 | XMS_ITS | Clinical Summary ---
Author Organization [employer] Address [address] [facility] 7[address] [place] [address] Care Team Providers Care Hand Edger Name Role Phone Cassie Adam JOSUÉ Primary Care Provider [phone] Allergies No known active allergies Medications fluticasone (Flonase) 50 MCG/ACT nasal spray Administer 1-2 sprays into affected nostril(s) at bed time. 2 Active triamcinolone (Kenalog) 0.1 % creamIndication [...] to 10 days. 30 tablet 4 Active ibuprofen 400 MG tablet Take 1 tablet (400 mg) by mouth every 6 (six) hours if needed for moderate pain or fever for up to 30 doses. 30 tablet 4 Active losartan (Cozaar) 50 MG tablet Take 1 tablet (50 mg) by mouth Once per day. 30 tablet 5 5 12/01/19 26 Active Active Problems Problem Noted Date Diagnosed [...] Type Department Care Team Description 12/08/2024 Telephone [facility] [address] [place] [address] Anastasiya Recinos MA Results 11/30/2024 11:00 AM EDT Office Visit [facility] [address] [place] [address] Cassie Adam NP Healthcare maintenance (Primary Dx); Elevated blood pressure reading; Dietary counseling; Exercise counseling; Obesity (BMI 35.0-39.9 without comorbidity); Primary hypertension; Elevated LFTs 11/30/[address] [address] Cassie Adam NP Results; Referral 11/30/2024 Travel 11/23/2024 Patient Outreach [facility] [address] [place] [address] Cassie Adam NP Pre-visit Planning (SDOH negative, Tobacco screening negative.) 11/19/[address] [address] Anastasiya Recinos MA Chart Prep 11/08/[address] [address] Daphne Rico RN Results 11/05/20[address] Score [facility] () Department [address] [place] [phone] Provider, Population Health Generic 11/02/2024 Telephone [facility] [address] [place] [phone] Trent Fang MD 11/02/2024 Orders Only [facility] [address] [place] [phone] Trent Fang MD Ovarian mass, left (Primary Dx) 11/01/2024 9:30 AM EDT Office Visit [address] [address] Otoniel Chaudhari CNM Cervical cancer screening (Primary Dx); Encounter for IUD removal; Axillary mass, right 11/01/2024 Orders Only [address] [address] Otoniel Chaudhari CNM 11/01/2024 Travel 10/26/2024 9:00 AM EST Office Visit [address] [address] Otoniel Chaudhari CNM Mechanical breakdown of intrauterine contraceptive device, subsequent encounter (Primary Dx); Ovarian mass, left 10/26/2024 Travel 10/13/2024 Travel 10/12/2024 Telephone [facility] [address] [place] [address] Trent Fang MD 10/12/2024 Orders Only [facility] [address] [place] [address] Trent Fang MD IUD migration, initial encounter [...] Description 01/24/2025 11:15 AM EDT Office Visit [facility] [address] [place] [address] Cassie Adam, JOSUÉ [address] [place] [address] 03/10/2025 9:45 AM EDT Office Visit [facility] [address] [place] [address] Marlyn Bermudez, OD [address] [place] [address] Health Maintenance Due Date Last Done Comments DTaP/Tdap/Td Vaccines (1 - Tdap) 1999 Hepatitis A Vaccines (1 of 2 - Risk 2-dose series) 1999 Hepatitis B Vaccines (1 of 3 - 19+ 3-dose series) 1999 COVID-19 Vaccine ( - season) 2024 01/13/2021, 12/16/2020 Influenza Vaccine (#1) 2024 Family Planning (PISQ) 11/01/2025 11/01/2024 Alcohol/Substance Use Screening 11/30/2025 11/30/2024 Depression Screening 11/30/2025 11/30/2024, 04/08/20 25 SDOH Screening 11/30/2025 11/30/2024 Tobacco Screening 11/30/2025 [...] Free T4 2.32 0.32 - 4.0 uIU/mL [facility] Blood Venous blood specimen / Unknown 11/30/2024 12:08 PM EDT 11/30/2024 1:12 PM EDT us Cassie Adam POCKET CREASER LAB BLOOD ORDERABLES Final Resul t [facility] [address] [place] [phone] [phone] * Hemoglobin A1c (11/30/2024 12:08 PM EDT) Hemoglobin A1c 5.5 <6.0 % [facility] Comment:Hemoglobin A1C Refer ence Range Adults: 4.8 - 6.0 % Non diabetic: < 6.0 % Goal: < 7.0 %Additional Action Suggested: > 8.0 %Note: Hemoglobin A1c results are invalid for patients with abnormal amounts of HbF. Blood transfusions may impact the HbA1c concentration in the patient sample. Estimated Average Glucose 111 mg/dL [facility] Comment:eAG = Estimated ave rage glucose which is %A1C expressed asaverage glucose, using the formula of the Z0D-YovcfrrZsvjqxg Glucose study (ADAG), Diabetes Care, Vol.31,#8,Mar. 2007 Blood Venous blood specimen / Unknown 11/30/2024 12:08 PM EDT 11/30/2024 1:12 PM EDT us Cassie Adam NP LAB BLOOD ORDERABLES Final Resul t [facility] [address] [place] [phone] * (ABNORMAL) Lipid Panel, Standard (11/30/2024 12:08 PM EDT) Triglycerides 100 <150 mg/dL [facility] Comment:Desirable Triglyceri de: less than 150 mg/dLBorderline High Triglyceride 150-199 mg/dLHigh Triglyceride: 200-499 mg/dLVery High Triglyceride: greater than or equal to 5OO mg/dL Cholesterol 185 <200 mg/dL [facility] Comment:Desirable Cholestero l: less than 200 mg/dLBorderline High Cholesterol: 200-239 mg/dLHigh Cholesterol: greater than 239 mg/dL LDL Cholesterol Calculated 117(H) <100 mg/dL [facility] Comment:Desirable LDL: less than 100 mg/dLNear Optimal/Above Optimal LDL: 110- 129 mg/dLBorderline High LDL: 130-159 mg/dLHigh LDL: 160-189 mg/dLVery High LDL: greater than or equal to 190 mg/dL HDL Cholesterol 48 >40 mg/dL [facility] Comment:Desirable HDL: great er than 40 mg/dL Note: This HDL assay may give artificially low results in patients with liver disease. Blood Venous blood specimen / Unknown 11/30/2024 12:08 PM EDT 11/30/2024 1:12 PM EDT us Cassie Adam POCKET CREASER LAB BLOOD ORDERABLES Final Resul t [facility] [address] [place] [phone] [phone] * (ABNORMAL) Comprehensive Metabolic Panel (11/30/2024 12:08 PM EDT) Sodium 139 135 - 145 mmol/L [facility] Potassium 3.7 3.3 - 5.1 mmol/L [facility] Chloride 109(H) 96 - 108 mmol/L [facility] Carbon Dioxide 24 22 - 29 mmol/L [facility] Anion Gap 10(L) 12 - 20 [facility] Urea Nitrogen (BUN) 9 9 - 16 mg/dL [facility] Creatinine, Serum 0.58 0.5 - 1.4 mg/dL [facility] Estimated Glomerular Filt Rate >60 [facility] Comment:Chronic Kidney Disea se: Estimated GFR < 60 mL/min/1.05f5Awunpo Kidney Disease: Estimated GFR < 15 mL/min/1.73m2 Glucose 79 60 - 115 mg/dL [facility] Calcium 9.2 8.4 - 10.2 mg/dL [facility] Bilirubin, Total 0.5 0.0 - 1.0 mg/dL [facility] Aspartate Amino Transferase 76(H) 5 - 31 U/L [facility] Alanine Aminotransferase 111(H) 0 - 31 U/L [facility] Total Protein 7.7 6.5 - 8.0 g/dL [facility] Albumin Level 4.3 3.5 - 5.0 g/dL [facility] Alkaline Phosphatase 81 39 - 117 U/L [facility] Blood Venous blood specimen / Unknown 11/30/2024 12:08 PM EDT 11/30/2024 1:12 PM EDT us Cassie Adam POCKET CREASER LAB BLOOD ORDERABLES Final Resul t [facility] [address] [place] [address] [phone] * BI Mammogram Diagnostic Tomosynthesis Bilateral (11/08/2024 12:05 PM EDT) Anatomical Region Laterality Modality Breast Bilateral Mammography 11/08/2024 12:0 5 PM EDT Narrative 11/08/2024 1:18 PM EDT ? [facility] [place] ? [address] ?[place] [address] ? Mammography Report ? Signed ? Patient: Apple Schwab ?MR#: M ?? [id number] ? : 1980 ?Acct:[id number] ? Age/Sex: 44 / F ?ADM Date: 11/08/24 ? Loc: HO.MAMMO ? Attending Dr: Otoniel Chaudhari CNM ? Ordering Physician: OTONIEL CHAUDHARI CNM ?Results: 2 ?? Benign Findings ? Date of Service: 11/08/24 ?Follow Up: 1 Year From Orig ?? inal Mammogram ? Procedure(s): MM tomosynthesis diagnostic BI ?? Accession Number(s): [id number] ? cc: OTONIEL CHAUDHARI CNM ? EXAMINATION: [...] DD/ 1205 ? TD/TT: 11/08/24 1225 ? Digital Retoucher: ? Procedure Note Jerson, Jeremiah - 11/08/2024 [facility] [address] [place] [address] [place] [address] Mammography Report Signed Patient: Joshua ReisFigueroa pedersen#: M [id number] : 1980Acct:[id number] Age/Sex: 44 / FADM Date: 11/08/24 Loc: HO.MAMMO Attending Dr: Otoniel Chaudhari CNM Ordering Physician: OTONIEL CHAUDHARIesults: 2 Benign Findings Date of Service: 11/08/24Follow Up: 1 Year From [facility] ina Mammogram Procedure(s): MM tomosynthesis diagnostic BI Accession Number(s): [id number] cc: OTONIEL CHAUDHARI CNM EXAMINATION: MM DIAGNOSTIC [...] 11/08/24 1315 DD/ 1205 TD/TT: 11/08/24 1225 Digital Retoucher: us Otoniel Chaudhari CNM IMG BI PROCEDURES Final R esult * BI US Breast Limited Right (11/08/2024 12:00 PM EDT) Anatomical Region Laterality Modality Breast Right Ultrasound 11/08/2024 12:0 0 PM EDT Narrative 11/08/2024 1:18 PM EDT ? [facility] [place] ? [address] ?[place] [address] ? Ultrasound Report ? Signed ? Patient: Apple Schwab ?MR#: M ?? [id number] ? : 1980 ?Acct:[id number] ? Age/Sex: 44 / F ?ADM Date: 11/08/24 ? Loc: HO.MAMMO ? Attending Dr: Otoniel Chaudhari CNM ? Ordering Physician: OTONIEL CHAUDHARI CNM ?? Date of Service: 11/08/24 ?? Procedure(s): US breast RT limited ?? Accession Number(s): [id number] ? cc: OTONIEL CHAUDHARI CNM ? EXAMINATION: [...] DD/ 1200 ? TD/TT: 11/08/24 1244 ? Digital Retoucher: ? Procedure Note Donotuseinterpreter, Image - 11/08/2024 [facility] [address] [place] [address] Ultrasound Report Signed Patient: Figueroa Schwab#: M [id number] : 1980Acct:[id number] Age/Sex: 44 / FADM Date: 11/08/24 Loc: [place] Attending Dr: Otoniel Chaudhari CNM Ordering Physician: OTONIEL CHAUDHARI CNM Date of Service: 11/08/24 Procedure(s): US breast RT limited Accession Number(s): [id number] cc: OTONIEL CHAUDHARI CNM EXAMINATION: MM DIAGNOSTIC [...] 11/08/24 1315 DD/ 1200 TD/TT: 11/08/24 1244 Digital Retoucher: Otoniel Chaudhari CNM IMG US PROCEDURES Final R esult * HPV DNA, Low/High Risk (11/01/2024 9:02 AM EDT) HPV High Risk Negative Negative [facility] HPV Genotype 16 Negative Negative [facility] HPV Genotype 18 Negative Negative [facility] Comment:HPV testing performe d at [facility] (CLIA#[id number]), [address] [place] [address].Testing for HPV was performed using the [employer] [...] CNM LAB BLOOD ORDERABLES Tereza l Result [facility] [address] [place] [phone] * Pap Smear (11/01/2024 9:02 AM EDT) Swab Cervix uteri structure / Unknown 11/01/2024 9:02 AM EDT 11/02/2024 9:30 AM EDT [facility] - 11/04/2024 7:05 AM EDT ----- ------- Name: Apple Schwab ?Age/Sex: 44/F ? : 1980 Unit#: [id number] ?? Attend Dr: OTONIEL CHAUDHARI CNM ?Re11/01/24 ?Status: DEP REF ? [facility] ? Disch: ? ----- ------- SPEC : [id number] ? RECD: 11/02/24 ? STATUS: ??SOUT ? REQ NUM: [id number] ? BRITANY: 11/01/24-901 ? SUBM DR: OTONIEL CHAUDHARI CNM ? ENTERED: ??11/02/24-953 ?SP TYPE: Pap Smr ?OTHR : ? [...] CNM LAB CYTOLOGY ORDERABLES F inal Result [facility] [address] [facility] [place] [address] [phone] * MR Pelvis w/ and w/o Contrast (10/30/2024 12:55 PM EST) Anatomical Region Laterality Modality Body, Pelvis Magnetic Resonan ce 10/30/2024 12:5 5 PM EST Narrative 11/02/2024 7:36 AM EDT ? [facility] ?[address] ?[place] [address] ? Magnetic Resonance Report ? Signed ? Patient: Apple Schwab ?MR#: M ?? [id number] ? : 1980 ?Acct:[id number] ? Age/Sex: 44 / F ?ADM Date: 10/30/24 ? Loc: HO.MRI ? Attending Dr: Trent Fang MD ? Ordering Physician: TRENT FANG MD ?? Date of Service: 10/30/24 ?? Procedure(s): MR pelvis wo/w con ?? Accession Number(s): [id number] ? cc: TRENT FANG MD ? EXAMINATION: [...] ??Bola Wills MD ??11/02/2024 07:33 AM EDT ? Dictated By: ?Bola Wills MD ? Signed By: ?<Electronically signed by Bloa Wills MD in OV> ?11/02/24 0733 ? DD/ 1255 ? TD/TT: 10/30/24 1325 ? Digital Retoucher: ? Procedure Note Jeremiah Arthur - 11/02/[address] [address] Magnetic Resonance Report Signed Patient: Joshua ReisFigueroa pedersen#: M [id number] : 1980Acct:[id number] Age/Sex: 44 / FADM Date: 10/30/24 Loc: HO.MRI Attending Dr: Trent Fang MD Ordering Physician: TRENT FANG MD Date of Service: 10/30/24 Procedure(s): MR pelvis wo/w con Accession Number(s): [id number] cc: TRENT FANG MD EXAMINATION: MR PELVIS [...] 11/02/24 0733 DD/ 1255 TD/TT: 10/30/24 1325 Digital Retoucher: us Trent Fang MD IMG MRI PROCEDURES Final Result * US Pelvis Transvaginal (10/11/2024 12:40 PM EST) Anatomical Region Laterality Modality Pelvis Ultrasound 10/11/2024 12:4 0 PM EST Narrative 10/11/2024 12:41 PM EST ? [facility] ?[address] ?[place] [address] ? Ultrasound Report ? Signed ? Patient: Apple Schwab ?MR#: M ?? [id number] ? : 1980 ?Acct:[id number] ? Age/Sex: 44 / F ?ADM Date: 10/11/24 ? Loc: HO.US ? Attending Dr: Trent Fang MD ? Ordering Physician: TRENT FANG MD ?? Date of Service: 10/11/24 ?? Procedure(s): US pelvic and transvaginal ?? Accession Number(s): [id number] ? cc: TRENT FANG MD ? CLINICAL [...] DD/ 1240 ? TD/TT: 10/11/24 1240 ? Digital Retoucher: ? Procedure Note Sauldavinaмаринаtroy, Image - 10/11/2024 [place] [address] Ultrasound Report Signed Patient: Figueroa Schwab#: M [id number] : 1980Acct:[id number] Age/Sex: 44 / FADM Date: 10/11/24 Loc: HO.US Attending Dr: Trent Fang MD Ordering Physician: TRENT FANG MD Date of Service: 10/11/24 Procedure(s): US pelvic and transvaginal Accession Number(s): [id number] cc: TRENT FANG MD CLINICAL HISTORY: 6 [...] 10/11/24 1241 DD/ 1240 TD/TT: 10/11/24 1240 Digital Retoucher: us Trent Fang MD IM US PROCEDURES Final Result * Hepatitis C Antibody with Reflex to HCV, RNA, Quantitative, Real-Time PCR (02/07/2023 10:04 AM EDT) Hepatitis C Antibody NON-REACT MIRA NON-REACT MIRA [employer] Index <0.02 <1.00 [employer] [facility] Comment: HCV antibody was non-reactive. There is no laboratory evidence of HCV infection. In most cases, no further action is required. However, if recent HCV exposure is suspected, a test for HCV RNA (test code 45282) is suggested. For additional information please refer to http://education.Et[employer].com/faq/SOY26v0 (This link is being provided for informational/ educational purposes only.) Blood Venous blood specimen / Unknown 02/07/2023 10:04 AM EDT 02/07/2023 10:04 AM EDT Narrative [facility] - 02/17/2023 6:29 PM EDT FASTING:YES FASTING: YES Nehal Bailey [facility] LAB BLOOD ORDERABLES Final Result [facility] [address], [place] [address] [employer] [place] [facility] [address] [place] [phone] * HIV-1/2 Antigen and Antibodies, Fourth Generation, with Reflexes (02/07/2023 10:04 AM EDT) Pathologist [facility] HIV Antigen/Antibody, 4th Generation NON-REAC TIVE NON-REAC TIVE [employer] [place] [employer] [facility] Comment: HIV-1 antigen and HIV-1/HIV-2 antibodies were [...] ?? For additional information please refer to http://education.[facility].[employer]Gem/faq/KTH942 (This link is being provided for informational/ educational purposes only.) The performance of this assay has not been clinically validated in patients less than 2 years old. Blood Venous blood specimen / Unknown 02/07/2023 10:04 AM EDT 02/07/2023 10:04 AM EDT Narrative [facility] - 02/17/2023 6:29 PM EDT FASTING:YES FASTING: YES Nehal Bailey [facility] BLOOD ORDERABLES Final Result [facility] [address], [place] [address] [employer] [place] [facility] [address] [place] [address] from Last 3 Months or Most Recently Relevant to Health Maintenance Insurance [facility] C3 Care Teams Hand Edger Relationship Specialty Start Date End Date Cassie Adam NP [address] [place] [address] [phone] PCP - General Family Medicine 10/06/23
== END 2025-01-04 10:01 | disposition home or self-care (01) ==
LOC: HO.US 10:00
PROVIDERS: PCP Emergency Medicine; Visit Provider Obstetrics & Gynecology
DX: N83.299 Other ovarian cyst, unspecified side (principal)
CPT/HCPCS: 76830; 76856

== ENCOUNTER → 2025-01-04 10:02 | Outpatient (BNV) | payer MEDICAID, SELFPAY | PROVIDERS: PCP Emergency Medicine; Visit Provider Radiology Diagnostic Radiology | DX: N83.292 Other ovarian cyst, left side (principal) | CPT/HCPCS: 76830; 76856 ==

== ENCOUNTER 2025-01-13 09:33 | Outpatient (REF) | payer MEDICAID, SELFPAY ==
--- OUTSIDE RECORDS SUMMARY | 2025-01-13 10:57 | XMS_ITS | Clinical Summary ---
Author Organization [employer] Address [address] [place] [address] 7t [place] [address] Care Team Providers Care Straight Line Press Setter Name Role Phone Cassie Adam NP Primary Care Provider [phone] Allergies No known active allergies Medications fluticasone [...] Department Care Team Description 01/04/2025 Orders Only [facility] External Provider, [facility] 12/08/[address] [address] Anastasiya Recinos [place] Results 11/30/2024 11:00 AM EDT Office Visit [address] [address] Cassie Adam NP Healthcare maintenance (Primary Dx); Elevated blood pressure reading; Dietary counseling; Exercise counseling; Obesity (BMI 35.0-39.9 without comorbidity); Primary hypertension; Elevated LFTs 11/30/[address] [address] Cassie Adam NP Results; Referral 11/30/2024 Travel 11/23/2024 Patient Outreach [facility] [address] [place] [address] Cassie Adam NP Pre-visit Planning (SDOH negative, Tobacco screening negative.) 11/19/2024 Telephone [facility] [address] [place] [address] Anastasiya Recinos MA Chart Prep 11/08/[address] [address] Daphne Rico RN Results 11/05/2024 Population Health Risk Score [facility] [address] [place] [phone] Provider, Population Health Generic 11/02/2024 Telephone [facility] [address] [place] [phone] Trent Fang MD 11/02/2024 Orders Only [facility] [address] [place] [phone] Trent Fang MD Ovarian mass, left (Primary Dx) 11/01/2024 9:30 AM EDT Office Visit [facility] [address] [place] [phone] Otoniel Chaudhari CNM Cervical cancer screening (Primary Dx); Encounter for IUD removal; Axillary mass, right 11/01/2024 Orders Only [facility] [address] [place] [address] Otoniel Chaudhari CNM 11/01/2024 Travel 10/26/2024 9:00 AM EST Office Visit [facility] [address] [place] [phone] Otoniel Chaudhari CNM Mechanical breakdown of intrauterine [...] Description 01/24/2025 11:15 AM EDT Office Visit [facility] [address] [place] [address] Cassie Adam NP [address] [place] [address] 03/10/2025 9:45 AM EDT Office Visit [facility] [address] [place] [address] Marlyn Bermudez, OD [address] [place] [address] Health Maintenance Due Date Last Done Comments [...] EDT Narrative 01/04/2025 3:44 PM EDT ? [facility] ?[address] ?[place] [address] ? Ultrasound Report ? Signed ? Patient: Apple Schwab ?MR#: M ?? [id number] ? : 1980 ?Acct:[id number] ? Age/Sex: 44 / F ?ADM Date: 01/04/25 ? Loc: HO.US ? Attending Dr: Jamie Alexander MD ? Ordering Physician: Jamie Alexander MD ?? Date of Service: 01/04/25 ?? Procedure(s): US pelvic and transvaginal ?? Accession Number(s): [id number] ? cc: TRENT FANG MD; Jamie Alexander [...] DD/ 1542 ? TD/TT: 01/04/25 1542 ? Police Sergeant: ? Procedure Note Donotuseinterpreter, Image - 01/04/2025 [place] [address] Ultrasound Report Signed Patient: Figueroa Schwab#: M [id number] : 1980Acct:[id number] Age/Sex: 44 / FADM Date: 01/04/25 Loc: HO.US Attending Dr: Jamie Alexander MD Ordering Physician: Jamie Alexander MD Date of Service: 01/04/25 Procedure(s): US pelvic and transvaginal Accession Number(s): [id number] cc: TRENT FANG MD; Jamie Alexander MD [...] 01/04/25 1544 DD/ 1542 TD/TT: 01/04/25 1542 Police Sergeant: Result [facility] External Provider IMG US PROCEDURES Final Result * TSH W/Reflex to FT4 (11/30/2024 12:08 PM EDT) TSH reflex Free T4 2.32 0.32 - 4.0 uIU/mL [facility] Blood Venous blood specimen / Unknown 11/30/2024 12:08 PM EDT 11/30/2024 1:12 PM EDT Result [facility] Cassie Adam NP LAB BLOOD ORDERABLES Final Resul t Performing Organization Address [facility] Co de Phone Number [facility] [address] [place] [phone] * Hemoglobin A1c (11/30/2024 12:08 PM EDT) Hemoglobin A1c 5.5 <6.0 % [facility] Comment:Hemoglobin A1C Refer ence Range Adults: 4.8 - 6.0 % Non diabetic: < 6.0 % Goal: < 7.0 %Additional Action Suggested: > 8.0 %Note: Hemoglobin A1c results are invalid for patients with abnormal amounts of HbF. Blood transfusions may impact the HbA1c concentration in the patient sample. Estimated Average Glucose 111 mg/dL [facility] Comment:eAG = Estimated ave rage glucose which is %A1C expressed asaverage glucose, using the formula of the U1R-SfeqkdrMomlybx Glucose study (ADAG), Diabetes Care, Vol.31,#8,Mar. 2007 Blood Venous blood specimen / Unknown 11/30/2024 12:08 PM EDT 11/30/2024 1:12 PM EDT Result [facility] Cassie Adam NP LAB BLOOD ORDERABLES Final Resul t Performing Organization Address [facility] Co de Phone Number [facility] [address] [place] [phone] * (ABNORMAL) Lipid Panel, Standard (11/30/2024 12:08 PM EDT) Triglycerides 100 <150 mg/dL [facility] Comment:Desirable Triglyceri de: less than 150 mg/dLBorderline High Triglyceride 150-199 mg/dLHigh Triglyceride: 200-499 mg/dLVery High Triglyceride: greater than or equal to 5OO mg/dL Cholesterol 185 <200 mg/dL [facility] Comment:Desirable Cholestero l: less than 200 mg/dLBorderline High Cholesterol: 200-239 mg/dLHigh Cholesterol: greater than 239 mg/dL LDL Cholesterol Calculated 117(H) <100 mg/dL [facility] Comment:Desirable LDL: less than 100 mg/dLNear Optimal/Above Optimal LDL: 110- 129 mg/dLBorderline High LDL: 130-159 mg/dLHigh LDL: 160-189 mg/dLVery High LDL: greater than or equal to 190 mg/dL HDL Cholesterol 48 >40 mg/dL [facility] Comment:Desirable HDL: great er than 40 mg/dL Note: This HDL assay may give artificially low results in patients with liver disease. Blood Venous blood specimen / Unknown 11/30/2024 12:08 PM EDT 11/30/2024 1:12 PM EDT us Cassie Adam NP LAB BLOOD ORDERABLES Final Resul t [facility] [address] [place] [address] [phone] * (ABNORMAL) Comprehensive Metabolic Panel (11/30/2024 12:08 PM EDT) Sodium 139 135 - 145 mmol/L [facility] Potassium 3.7 3.3 - 5.1 mmol/L [facility] Chloride 109(H) 96 - 108 mmol/L [facility] Carbon Dioxide 24 22 - 29 mmol/L [facility] Anion Gap 10(L) 12 - 20 [facility] Urea Nitrogen (BUN) 9 9 - 16 mg/dL [facility] Creatinine, Serum 0.58 0.5 - 1.4 mg/dL [facility] Estimated Glomerular Filt Rate >60 [facility] Comment:Chronic Kidney Disea se: Estimated GFR < 60 mL/min/1.19n5Ymuzgq Kidney Disease: Estimated GFR < 15 mL/min/1.73m2 Glucose 79 60 - 115 mg/dL [facility] Calcium 9.2 8.4 - 10.2 mg/dL [facility] Bilirubin, Total 0.5 0.0 - 1.0 mg/dL [facility] Aspartate Amino Transferase 76(H) 5 - 31 U/L [facility] Alanine Aminotransferase 111(H) 0 - 31 U/L [facility] Total Protein 7.7 6.5 - 8.0 g/dL [facility] Albumin Level 4.3 3.5 - 5.0 g/dL [facility] Alkaline Phosphatase 81 39 - 117 U/L [facility] Blood Venous blood specimen / Unknown 11/30/2024 12:08 PM EDT 11/30/2024 1:12 PM EDT us Cassie Adam EMBROIDERY CUTTER LAB BLOOD ORDERABLES Final Resul t [facility] [address] [place] [phone] * BI Mammogram Diagnostic Tomosynthesis Bilateral (11/08/2024 12:05 PM EDT) Anatomical Region Laterality Modality Breast Bilateral Mammography 11/08/2024 12:0 5 PM EDT Narrative 11/08/2024 1:18 PM EDT ? [facility] ? [address] ?[place] [address] ? Mammography Report ? Signed ? Patient: Apple Schwab ?MR#: M ?? [id number] ? : 1980 ?Acct:[id number] ? Age/Sex: 44 / F ?ADM Date: 03/17/25 ? Loc: HO.MAMMO ? Attending Dr: Otoniel Chaudhari CNM ? Ordering Physician: OTONIEL CHAUDHARI CNM ?Results: 2 ?? Benign Findings ? Date of Service: 11/08/24 ?Follow Up: 1 Year From Orig ?? inal Mammogram ? Procedure(s): MM tomosynthesis diagnostic BI ?? Accession Number(s): [id number] ? cc: OTONIEL CHAUDHARI CNM ? EXAMINATION: [...] DD/ 1205 ? TD/TT: 11/08/24 1225 ? Police Sergeant: ? Procedure Note Donotuseinterpreter, Image - [facility] [address] [place] [address] Mammography Report Signed Patient: Figueroa Schwab#: M [id number] : 1980Acct:[id number] Age/Sex: 44 / FADM Date: 11/08/24 Loc: HO.MAMMO Attending Dr: Otoniel Chaudhari CNM Ordering Physician: OTONIEL CHAUDHARIesults: 2 Benign Findings Date of Service: 11/08/24Follow Up: 1 Year From [facility] Mammogram Procedure(s): MM tomosynthesis diagnostic BI Accession Number(s): [id number] cc: OTONIEL CHAUDHARI CNM EXAMINATION: MM DIAGNOSTIC [...] 11/08/24 1315 DD/ 1205 TD/TT: 11/08/24 1225 Police Sergeant: us Otoniel Chaudhari CNM IMG BI PROCEDURES Final R esult * BI US Breast Limited Right (11/08/2024 12:00 PM EDT) Anatomical Region Laterality Modality Breast Right Ultrasound 11/08/2024 12:0 0 PM EDT Narrative 11/08/2024 1:18 PM EDT ? [facility] ? [address] ?[place] [address] ? Ultrasound Report ? Signed ? Patient: Apple Schwab ?MR#: M ?? [id number] ? : 1980 ?Acct:[id number] ? Age/Sex: 44 / F ?ADM Date: 03/17/25 ? Loc: HO.MAMMO ? Attending Dr: Otoniel Chaudhari CNM ? Ordering Physician: OTONIEL CHAUDHARI CNM ?? Date of Service: 11/08/24 ?? Procedure(s): US breast RT limited ?? Accession Number(s): [id number] ? cc: OTONIEL CHAUDHARI CNM ? EXAMINATION: [...] DD/ 1200 ? TD/TT: 11/08/24 1244 ? Police Sergeant: ? Procedure Note Jerson, Image - 11/08/2024 [facility] [address] [place] [address] [place] [address] Ultrasound Report Signed Patient: Joshua WilsonsueverFigueroa#: M [id number] : 1980Acct:[id number] Age/Sex: 44 / FADM Date: 11/08/24 Loc: HO.MAMMO Attending Dr: Otoniel Chaudhari CNM Ordering Physician: OTONIEL CHAUDHARI CNM Date of Service: 11/08/24 Procedure(s): US breast RT limited Accession Number(s): [id number] cc: OTONIEL CHAUDHARI CNM EXAMINATION: MM DIAGNOSTIC [...] 11/08/24 1315 DD/ 1200 TD/TT: 11/08/24 1244 Police Sergeant: Otoniel Chaudhari CNM IMG US PROCEDURES Final R esult * HPV DNA, Low/High Risk (11/01/2024 9:02 AM EDT) HPV High Risk Negative Negative [facility] HPV Genotype 16 Negative Negative [facility] HPV Genotype 18 Negative Negative [facility] Comment:HPV testing performe d at [facility] (CLIA#[id number]), [address] [place] [phone].Testing for HPV was performed using the [employer] [...] [facility] LAB BLOOD ORDERABLES Tereza dalton Result [facility] [address] [place] [phone] * Pap Smear (11/01/2024 9:02 AM EDT) Swab Cervix uteri structure / Unknown 11/01/2024 9:02 AM EDT 11/02/2024 9:30 AM EDT Narrative [facility] - 11/04/2024 7:05 AM EDT ----- ------- Name: Apple Schwab ?Age/Sex: 44/F ? : 1980 Unit#: [id number] ?? Attend Dr: OTONIEL CHAUDHARI CNM ?Re11/01/24 ?Status: DEP REF ? [facility] ? Disch: ? ----- ------- SPEC : [id number] ? RECD: 11/02/24 ? STATUS: ??SOUT ? REQ NUM: [id number] ? BRITANY: 11/01/24 ? SUBM DR: OTONIEL [...] END OF REPORT ? us Otoniel Chaudhari [facility] CYTOLOGY ORDERABLES F inal Result [facility] [address] [place] [phone] * MR Pelvis w/ and w/o Contrast (10/30/2024 12:55 PM EST) Anatomical Region Laterality Modality Body, Pelvis Magnetic Resonan ce 10/30/2024 12:5 5 PM EST Narrative 11/02/2024 7:36 AM EDT ? [facility] ?[address] ?[place] [address] ? Magnetic Resonance Report ? Signed ? Patient: Apple Schwab ?MR#: M ?? [id number] ? : 1980 ?Acct:[id number] ? Age/Sex: 44 / F ?ADM Date: 10/30/24 ? Loc: HO.MRI ? Attending Dr: Trent Fang MD ? Ordering Physician: TRENT FANG MD ?? Date of Service: 10/30/24 ?? Procedure(s): MR pelvis wo/w con ?? Accession Number(s): [id number] ? cc: TRENT FANG MD ? EXAMINATION: [...] DD/ 1255 ? TD/TT: 10/30/24 1325 ? Police Sergeant: ? Procedure Note Donotuseinterpreter, Image - 11/02/2024 [place] [address] Magnetic Resonance Report Signed Patient: Figueroa Schwab#: M [id number] : 1980Acct:[id number] Age/Sex: 44 / FADM Date: 10/30/24 Loc: .MRI Attending Dr: Trent Fang MD Ordering Physician: TRENT FANG MD Date of Service: 10/30/24 Procedure(s): MR pelvis wo/w con Accession Number(s): [id number] cc: TRENT FANG MD EXAMINATION: MR PELVIS [...] 11/02/24 0733 DD/ 1255 TD/TT: 10/30/24 1325 Police Sergeant: Trent Fang MD IM MRI PROCEDURES Final Result * Hepatitis C Antibody with Reflex to HCV, RNA, Quantitative, Real-Time PCR (02/07/2023 10:04 AM EDT) Hepatitis C Antibody NON-REACT MIRA NON-REACT MIRA [facility] Index <0.02 <1.00 [facility] Comment: HCV antibody was non-reactive. There is no laboratory evidence of HCV infection. In most cases, no further action is required. However, if recent HCV exposure is suspected, a test for HCV RNA (test code 59056) is suggested. For additional information please refer to http://Chumby.Twonq/faq/NPD48x4 (This link is being provided for informational/ educational purposes only.) Blood Venous blood specimen / Unknown 02/07/2023 10:04 AM EDT 02/07/2023 10:04 AM EDT Narrative [facility] - 02/17/2023 6:29 PM EDT FASTING:YES FASTING: YES Nehal Bailey RIBBING MACHINE OPERATOR LAB BLOOD ORDERABLES Final Result [place] [address], [place] [address] [facility] [address] [place] [phone] * HIV-1/2 Antigen and Antibodies, Fourth Generation, with Reflexes (02/07/2023 10:04 AM EDT) [facility] HIV Antigen/Antibody, 4th Generation NON-REAC TIVE NON-REAC TIVE [facility] Comment: HIV-1 antigen and HIV-1/HIV-2 antibodies [...] ?? For additional information please refer to [email or web address]/faq/BKV651 (This link is being provided for informational/ educational purposes only.) The performance of this assay has not been clinically validated in patients less than 2 years old. Blood Venous blood specimen / Unknown 02/07/2023 10:04 AM EDT 02/07/2023 10:04 AM EDT Narrative [facility] - 02/17/2023 6:29 PM EDT FASTING:YES FASTING: YES us Nehal Bailey RIBBING MACHINE OPERATOR LAB BLOOD ORDERABLES Final Result [facility] [address] [place] [address] [facility] [address] [place] [phone] from Last 3 Months or Most Recently Relevant to Health Maintenance [email or web address] Care Teams Straight Line Press Setter Relationship Specialty Start Date End Date Cassie Adam NP [address] [place] [phone] PCP - General Family Medicine 10/06/23
--- OUTSIDE RECORDS SUMMARY | 2025-01-13 10:57 | XMS_ITS | Encounter Summary ---
Author Organization [employer] Address [address] [place] [address] [address] [place] [address] Care Team Providers Care Highway Safety Engineer Name Role Phone Nehal Bailey LINUX ENGINEER Primary Care Provider [phone] Cassie Adam NP Primary Care Provider [phone] Encounter Details Date Type Department Care Team (Late st Contact Info) Description 08/20/2022 Abstract [facility] [address] [place] [address] Nehal Bailey FNP [address] [place] [address] Dept [place] [address] Social History Tobacco Use Types Packs/Day Years [...] Description 01/24/2025 11:15 AM EDT Office Visit [facility] [address] [place] [address] Cassie Adam NP [address] [place] [address] 03/10/2025 9:45 AM EDT Office Visit [facility] [address] [place] [address] Marlyn Bermudez, OD [address] [place] [address] documented as of this encounter Visit Diagnoses Not on filedocumented in this encounter Care Teams Highway Safety Engineer Relationship Specialty Start Date End Date Nehal Bailey FNP PCP - General Family Medicine 03/03/22 05/29/23 Cassie Adam NP [address] [place] [address] PCP - General Family Medicine 10/06/23 documented as of this encounter
[2025-01-13 11:47] LABS: Blood Urea Nitrogen 11 mg/dL (9-16); Estimated Glomerular Filt Rate > 60; Lactate Dehydrogenase 239 U/L (122-220)
[2025-01-13 12:05] LABS: Carcinoembryonic Antigen < 1.73 ng/mL
[2025-01-14 13:09] LABS: Alpha Fetoprotein 2.4 ng/mL
[2025-01-15 00:39] LABS: Carbohydrate Antigen 19-9 12 U/mL (<34)
[2025-01-17 11:54] LABS: CA-125 9 U/mL (<35)
[2025-01-20 20:32] LABS: Inhibin B 84 pg/mL
== END 2025-01-13 09:34 | disposition home or self-care (01) ==
LOC: HO.LAB 09:33
PROVIDERS: PCP Nurse Practitioner Family; Visit Provider Obstetrics & Gynecology
DX: N83.292 Other ovarian cyst, left side (principal); R10.9 Unspecified abdominal pain
CPT/HCPCS: 36415; 82105; 82378; 82565; 83520; 83615; 84520; 86301; 86304; 87086; 99212

== ENCOUNTER 2025-01-13 09:33 | Outpatient (AMB) | payer MEDICAID, SELFPAY ==
--- NOTE | 2025-01-13 09:34 | MHC.OFFVIS ---
Vital Signs 01/13/25 09:35 Height 5 ft 2 in Weight 200 lb BMI 36.6 Intake Visit Reasons: ultrasound follow up Assessment Consultant Required: Yes Assessment Consultant Language: Pan Devulcanizer Services: Assessment Consultant Present (in person) Assessment Consultant Name: Brea PRATT Information Interpreted: non-clinical & clinical Accompanied by: Self / Same As Patient Allergies No Known Allergies Allergy (Unverified 12/28/24 14:14) HPI Comments Details: Presenting for ultrasound follow-up done on 01/04/2025 which showed the following: Transabdominal scanning performed for overall anatomy. Transvaginal scanning performed for additional detail. Anteverted uterus is 8.9 cm length. Normal myometrium. Endometrium 4 mm thickness. No intrauterine device is visualized. Right ovary 3.2 x 1.5 x 2.4 cm. Left ovary 2.5 x 2.2 x 2.4 cm. Left-sided paraovarian cyst measuring 65 mm is present, which is not significantly changed. Normal color Doppler with arterial/venous spectral tracing of both ovaries. No free fluid. IMPRESSION: 1. No acute process. 2. No significant change in left paraovarian cyst. Neoplasm can not be excluded. COUNT INCLUDES THE [facility] Medical History HTN (hypertension) Surgical History Hx of tubal ligation Family History Mother HTN (hypertension) Diabetes Maternal Grandmother Diabetes Social History Household Members: Spouse and Children Housing: Apartment Alcohol intake: never Patient Tobacco Use Status: Never used Tobacco Current occupational status: employed Current occupation: RESEARCH DEVELOPMENT MANAGER Sexual orientation: Straight/Heterosexual Gender identity: Female Female Reproductive History Menstrual Age of Menarche: 11 Review of Systems Const All systems reviewed & are unremarkable except as noted in HPI and below Reports as per HPI and Reports no additional complaints GI Reports no additional complaints Reports no additional complaints Physical Exam Vital Signs: BMI result Body Mass Index 36.6 Assessment & Plan Assessment & Plan (1) Complex ovarian cyst: Comment: Left side persistent Code(s): N83.299 - Other ovarian cyst, unspecified side Category: Medical Plan: Discussed with the patient the persistent complex ovarian cyst by Ultrasound. The differential diagnosis discussed with the patient includes the following but not limited to: benign and malignant gynecological and non-gynecological. Recommended to refer to Gyne Onc for further management. CA 125, CA 19-9 , CEA, LDH, INHIBIN B and AFP ordered CT scan of abdomen and pelvis with oral contrast ordered Appointment scheduled with Dr. Chong at [facility] armament installer Oncology on 01/26/2025 at 10:00, the patient is aware Instructed the patient to call our office back in case a referral appointment is not scheduled, missed or canceled so that we will assist on rescheduling another appointment, the patient verbalized understanding agreed with the plan. Orders: Orders Carcinoembryonic Antigen Today N83.299 - Other ovarian cyst, unspecified side Lactate Dehydrogenase Today N83.299 - Other ovarian cyst, unspecified side Inhibin B Today N83.299 - Other ovarian cyst, unspecified side Blood Urea Nitrogen Today N83.299 - Other ovarian cyst, unspecified side CA-125 Today N83.299 - Other ovarian cyst, unspecified side Carbohydrate Antigen 19-9 Today N83.299 - Other ovarian cyst, unspecified side CT abdomen pelvis w IV con Today N83.299 - Other ovarian cyst, unspecified side Alpha Fetoprotein Today N83.299 - Other ovarian cyst, unspecified side Creatinine Today N83.299 - Other ovarian cyst, unspecified side Referrals Gynecologic Oncology Referral N83.299 - Other ovarian cyst, unspecified side Coding Level of Care Code Est Pt Level 3 (03929) Diagnoses Complex ovarian cyst N83.299
[2025-01-13 09:35] VITALS: BMI 36.6
--- OUTSIDE RECORDS SUMMARY | 2025-01-13 09:50 | XMS_ITS | Encounter Summary ---
Author Organization [employer] Address [address] [place] [address] 7 [place] [address] Care Team Providers Care Importer Exporter Name Role Phone Nehal Bailey APARTMENT LEASING SPECIALIST Primary Care Provider [phone] Cassie Adam NP Primary Care Provider [phone] Encounter Details Date Type Department Care Team (Late st Contact Info) Description 08/20/2022 Abstract [facility] [address] [place] [address] Nehal Bailey FNP [address] [place] [address] [place] [address] Social History Tobacco Use Types Packs/Day Years [...] PM EST documented as of this encounter Functional Status * Over the past 2 weeks, how often have you been bothered by any of the following problems? Question Answer Date of Assessment Author Little interest or pleasure in doing things Not at all 08/20/2022 1:16 PM Len Tinsley MA Feeling down, depressed, or hopeless Not at all 08/20/2022 1:16 PM Len Tinsley MA Patient Health Questionnaire -2 Score 0 08/20/2022 1:16 PM Len Tinsley MA documented as of this encounter Plan of Treatment Upcoming Encounters Date Type Department Care Team (Late st Contact Info) Description 01/24/2025 11:15 AM EDT Office Visit [facility] [address] [place] [address] Cassie Adam NP [address] [place] [address] 03/10/2025 9:45 AM EDT Office Visit [facility] [address] [place] [address] Marlyn Bermudez, OD [address] [place] [address] documented as of this encounter Visit Diagnoses Not on filedocumented in this encounter Care Teams Importer Exporter Relationship Specialty Start Date End Date Nehal Bailey FNP PCP - General Family Medicine 03/03/22 05/29/23 Cassie Adam NP [address] [place] [address] PCP - General Family Medicine 10/06/23 documented as of this encounter
--- OUTSIDE RECORDS SUMMARY | 2025-01-13 09:50 | XMS_ITS | Clinical Summary ---
Author Organization [employer] Address [address] [place] [address] 7[address] [place] [address] Care Team Providers Care Security Business Analyst Name Role Phone Cassie Adam NP Primary Care Provider [phone] Allergies No known active allergies Medications fluticasone [...] Noted Date Diagnosed Date Healthcare maintenance 11/30/2024 Assessment & Plan (01/10/2025 11:51 AM EDT): Anticipatory guidance reviewed, Utd on mammogram, pap Metabolic labs ordered Anticipatory guidance reviewed Dietary counseling 11/30/2024 Assessment & Plan (01/10/2025 11:49 AM EDT): Dietary Recommendations: Fruits, vegetables, whole grains, protein foods, and fat-free or low-fat dairy products are healthy choices. Eat different types of protein foods in your diet. This can include seafood, lean meats, poultry, beans, peas, lentils, nuts, seeds, soy products, and eggs. Limit foods and beverages higher in added sugars, saturated fat, and sodium. Exercise Recommendations: At least 150 minutes of moderate-intensity physical activity per week, or an equivalent combination of moderate- and vigorous-intensity activity Exercise counseling 11/30/2024 Obesity (BMI 35.0-39.9 without comorbidity) 03/2025 Assessment & Plan (01/10/2025 11:50 AM EDT): Metabolic labs ordered Encouraged lifestyle modification Elevated LFTs 11/30/2024 Assessment & Plan (01/10/2025 11:50 AM EDT): Trend labs Referral to GI Primary hypertension 11/30/2024 Assessment & Plan (01/10/2025 11:49 AM EDT): Above goal, Start losartan, continue home bp measurement, Return to clinic in 2-3 months Hepatomegaly 09/14/2024 Hepatic steatosis 09/14/2024 Preseptal cellulitis [...] Encounters Date Type Department Care Team Description 01/04/2025 Orders Only [facility] External Provider, [facility] 12/08/[address] [address] Anastasiya Recinos [place] Results 11/30/2024 11:00 AM EDT Office Visit [address] [address] Cassie Adam NP Healthcare maintenance (Primary Dx); Elevated blood pressure reading; Dietary counseling; Exercise counseling; Obesity (BMI 35.0-39.9 without comorbidity); Primary hypertension; Elevated LFTs 11/30/[address] [address] Cassie Adam NP Results; Referral 11/30/2024 Travel 11/23/2024 Patient Outreach [facility] [address] [place] [address] Cassie Adam NP Pre-visit Planning (SDOH negative, Tobacco screening negative.) 11/19/2024 Telephone [facility] [address] [place] [address] Anastasiya Recinos MA Chart Prep 11/08/[address] [address] Daphne Rico RN Results 11/05/2024 Population Health Risk Score [facility] [address] [place] [phone] Provider, Population Health Generic 11/02/2024 Telephone [facility] [address] [place] [phone] Trent Fang MD 11/02/2024 Orders Only [facility] [address] [place] [phone] Trent Fang MD Ovarian mass, left (Primary Dx) 11/01/2024 9:30 AM EDT Office Visit [facility] [address] [place] [phone] Otoniel Chaudhari CNM Cervical cancer screening (Primary Dx); Encounter for IUD removal; Axillary mass, right 11/01/2024 Orders Only [facility] [address] [place] [phone] Otoniel Chaudhari CNM 11/01/2024 Travel 10/26/2024 9:00 AM EST Office Visit [facility] [address] [place] [phone] Otoniel Chaudhari CNM Mechanical breakdown of intrauterine contraceptive device, subsequent encounter (Primary Dx); Ovarian mass, left 10/26/2024 Travel from Last 3 Months Immunizations Immunization Administration Dates Next Due Moderna Covid-19 Vaccine [...] Q2 Not on file 04/26/2024 Comments No Intention Date Recorded No desire to become (finding) 0 11/01/2024 Sex and Gender Information Value Date Recorded [...] Description 01/24/2025 11:15 AM EDT Office Visit [facility] [address] [place] [address] Cassie Adam NP [address] [place] [address] 03/10/2025 9:45 AM EDT Office Visit [facility] [address] [place] [address] Marlyn Bermudez, OD [address] [place] [address] Health Maintenance Due Date Last Done Comments Disability Screening 1980 DTaP/Tdap/Td Vaccines (1 - Tdap) 1999 Hepatitis A Vaccines (1 of 2 - Risk 2-dose series) 1999 Hepatitis B Vaccines (1 of 3 - 19+ 3-dose series) 1999 COVID-19 Vaccine ( season) 2024 01/13/2021, 12/16/2020 [...] patient's age to complete this topic Meningococcal B Vaccine Aged Out No l onger eligible based on patient's age to complete [...] Date/Time Associated Diagnosis Comments US PELVIS TRANSVAGINAL Routine 01/04/2025 3:42 PM EDT TSH W/REFLEX TO FT4 Routine 11/30/2024 1 [...] Routine 10/30/2024 12:55 PM EST Adnexal cyst HEPATITIS C AB W/REFL TO HCV RNA, QN, PCR Routine 02/07/2023 10:04 AM EDT Health care maintenance HIV 1/2 ANTIGEN/ANTIBODY, FOURTH GENERATION W/RFL Routine 02/07/2023 10:04 AM EDT Health care maintenance from Last 3 Months or Most Recently Relevant to Health Maintenance Results * US Pelvis Transvaginal (01/04/2025 3:42 PM EDT) Anatomical Region Laterality Modality Pelvis Ultrasound 01/04/2025 3:42 PM EDT Narrative 01/04/2025 3:44 PM EDT ? [facility] ?[address] ?[place] [address] ? Ultrasound Report ? Signed ? Patient: Apple Schwab ?MR#: M ?? [id number] ? : 1980 ?Acct:[id number] ? Age/Sex: 44 / F ?ADM Date: 01/04/25 ? Loc: HO.US ? Attending Dr: Jamie Alexander MD ? Ordering Physician: Jamie Alexander MD ?? Date of Service: 01/04/25 ?? Procedure(s): US pelvic and transvaginal ?? Accession Number(s): [id number] ? cc: TRENT FANG MD; Jamie Alexander MD ? CLINICAL HISTORY: N83.299 - Other ovarian cyst, unspecified side ? US pelvis transabdominal and transvaginal with Doppler ? Comparison: US - US PELVIC AND TRANSVAGINAL - 10/11/24 11:31 EST ? Findings: ?? Transabdominal scanning performed for overall anatomy. Transvaginal ?? scanning performed for additional detail. ? Anteverted uterus is 8.9 cm length. ?? Normal myometrium. ?? Endometrium 4 mm thickness. No intrauterine device is visualized. ? Right ovary 3.2 x 1.5 x 2.4 cm. ?? Left ovary 2.5 x 2.2 x 2.4 cm. Left-sided paraovarian cyst measuring 65 mm ?? is present, which is not significantly changed. ?? Normal color Doppler with arterial/venous spectral tracing of both ?? ovaries. ? No free fluid. ? IMPRESSION: ?? 1. No acute process. ?? 2. No significant change in left paraovarian cyst. Neoplasm can not be ?? excluded. ? This document has been electronically signed by: Ledy Flanagan MD on ?? 01/04/2025 15:42:39 ? Dictated By: ?Ledy Flanagan MD ? Signed By: ?<Electronically signed by Ledy Flanagan MD in OV> ? 01/04/25 1544 ? DD/ 1542 ? TD/TT: 01/04/25 1542 ? Oyster Worker: ? Procedure Note Donotuseinterpreter, Image - 01/04/2025 [place] [address] Ultrasound Report Signed Patient: Figueroa Schwab#: M [id number] : 1980Acct:[id number] Age/Sex: 44 / FADM Date: 01/04/25 Loc: HO.US Attending Dr: Jamie Alexander MD Ordering Physician: Jamie Alexander MD Date of Service: 01/04/25 Procedure(s): US pelvic and transvaginal Accession Number(s): [id number] cc: TRENT FANG MD; Jamie Alexander MD CLINICAL HISTORY: N83.299 - Other ovarian cyst, unspecified side US pelvis transabdominal and transvaginal with Doppler Comparison: US - US PELVIC AND TRANSVAGINAL - 10/11/24 11:31 EST Findings: Transabdominal scanning performed for overall anatomy. Transvaginal scanning performed for additional detail. Anteverted uterus is 8.9 cm length. Normal myometrium. Endometrium 4 mm thickness. No intrauterine device is visualized. Right ovary 3.2 x 1.5 x 2.4 cm. Left ovary 2.5 x 2.2 x 2.4 cm. Left-sided paraovarian cyst measuring 65 mm is present, which is not significantly changed. Normal color Doppler with arterial/venous spectral tracing of both ovaries. No free fluid. IMPRESSION: 1. No acute process. 2. No significant change in left paraovarian cyst. Neoplasm can not be excluded. This document has been electronically signed by: Ledy Flanagan MD on 01/04/2025 15:42:39 Dictated By: Ledy Flanagan MD Signed By: <Electronically signed by Ledy Flanagan MD in OV> 01/04/25 1544 DD/ 1542 TD/TT: 01/04/25 1542 Oyster Worker: Result [facility] External Provider IMG US PROCEDURES Final Result * TSH W/Reflex to FT4 (11/30/2024 12:08 PM EDT) TSH reflex Free T4 2.32 0.32 - 4.0 uIU/mL [facility] Blood Venous blood specimen / Unknown 11/30/2024 12:08 PM EDT 11/30/2024 1:12 PM EDT Result [facility] Cassie Adam NP LAB BLOOD ORDERABLES Final Resul t Performing Organization Address [facility] Co de Phone Number [facility] [address] [place] [phone] * Hemoglobin A1c (11/30/2024 12:08 PM EDT) Hemoglobin A1c 5.5 <6.0 % [facility] Comment:Hemoglobin A1C Refer ence Range Adults: 4.8 - 6.0 % Non diabetic: < 6.0 % Goal: < 7.0 %Additional Action Suggested: > 8.0 %Note: Hemoglobin A1c results are invalid for patients with abnormal amounts of HbF. Blood transfusions may impact the HbA1c concentration in the patient sample. Estimated Average Glucose 111 mg/dL [facility] Comment:eAG = Estimated ave rage glucose which is %A1C expressed asaverage glucose, using the formula of the L3Y-HdwhscvSrizjsm Glucose study (ADAG), Diabetes Care, Vol.31,#8,Mar. 2007 Blood Venous blood specimen / Unknown 11/30/2024 12:08 PM EDT 11/30/2024 1:12 PM EDT Result [facility] Cassie Adam NP LAB BLOOD ORDERABLES Final Resul t Performing Organization Address [facility] Co de Phone Number [facility] [address] [place] [phone] * (ABNORMAL) Lipid Panel, Standard (11/30/2024 12:08 PM EDT) Triglycerides 100 <150 mg/dL [facility] Comment:Desirable Triglyceri de: less than 150 mg/dLBorderline High Triglyceride 150-199 mg/dLHigh Triglyceride: 200-499 mg/dLVery High Triglyceride: greater than or equal to 5OO mg/dL Cholesterol 185 <200 mg/dL [facility] Comment:Desirable Cholestero l: less than 200 mg/dLBorderline High Cholesterol: 200-239 mg/dLHigh Cholesterol: greater than 239 mg/dL LDL Cholesterol Calculated 117(H) <100 mg/dL [facility] Comment:Desirable LDL: less than 100 mg/dLNear Optimal/Above Optimal LDL: 110- 129 mg/dLBorderline High LDL: 130-159 mg/dLHigh LDL: 160-189 mg/dLVery High LDL: greater than or equal to 190 mg/dL HDL Cholesterol 48 >40 mg/dL [facility] Comment:Desirable HDL: great er than 40 mg/dL Note: This HDL assay may give artificially low results in patients with liver disease. Blood Venous blood specimen / Unknown 11/30/2024 12:08 PM EDT 11/30/2024 1:12 PM EDT us Cassie Adam NP LAB BLOOD ORDERABLES Final Resul t [facility] [address] [place] [phone] * (ABNORMAL) Comprehensive Metabolic Panel (11/30/2024 12:08 PM EDT) Sodium 139 135 - 145 mmol/L [facility] Potassium 3.7 3.3 - 5.1 mmol/L [facility] Chloride 109(H) 96 - 108 mmol/L [facility] Carbon Dioxide 24 22 - 29 mmol/L [facility] Anion Gap 10(L) 12 - 20 [facility] Urea Nitrogen (BUN) 9 9 - 16 mg/dL [facility] Creatinine, Serum 0.58 0.5 - 1.4 mg/dL [facility] Estimated Glomerular Filt Rate >60 [facility] Comment:Chronic Kidney Disea se: Estimated GFR < 60 mL/min/1.98g6Pnzufg Kidney Disease: Estimated GFR < 15 mL/min/1.73m2 Glucose 79 60 - 115 mg/dL [facility] Calcium 9.2 8.4 - 10.2 mg/dL [facility] Bilirubin, Total 0.5 0.0 - 1.0 mg/dL [facility] Aspartate Amino Transferase 76(H) 5 - 31 U/L [facility] Alanine Aminotransferase 111(H) 0 - 31 U/L [facility] Total Protein 7.7 6.5 - 8.0 g/dL [facility] Albumin Level 4.3 3.5 - 5.0 g/dL [facility] Alkaline Phosphatase 81 39 - 117 U/L [facility] Blood Venous blood specimen / Unknown 11/30/2024 12:08 PM EDT 11/30/2024 1:12 PM EDT us Cassie Adam CARBONATOR LAB BLOOD ORDERABLES Final Resul t [facility] [address] [place] [phone] * BI Mammogram Diagnostic Tomosynthesis Bilateral (11/08/2024 12:05 PM EDT) Anatomical Region Laterality Modality Breast Bilateral Mammography 11/08/2024 12:0 5 PM EDT Narrative 11/08/2024 1:18 PM EDT ? [facility] [place] ? [address] ?[place] [address] ? Mammography Report ? Signed ? Patient: Apple Schwab ?MR#: M ?? [id number] ? : 1980 ?Acct:[id number] ? Age/Sex: 44 / F ?ADM Date: 03/17/25 ? Loc: HO.MAMMO ? Attending Dr: Otoniel Chaudhari CNM ? Ordering Physician: OTONIEL CHAUDHARI CNM ?Results: 2 ?? Benign Findings ? Date of Service: 11/08/24 ?Follow Up: 1 Year From Orig ?? inal Mammogram ? Procedure(s): MM tomosynthesis diagnostic BI ?? Accession Number(s): [id number] ? cc: OTONIEL CHAUDHARI CNM ? EXAMINATION: [...] DD/ 1205 ? TD/TT: 11/08/24 1225 ? Oyster Worker: ? Procedure Note Donotuseinterpreter, Image - 11/08/20[facility] [address] [place] [address] Mammography Report Signed Patient: Figueroa Schwab#: M [id number] : 1980Acct:[id number] Age/Sex: 44 / FADM Date: 11/08/24 Loc: HO.MAMMO Attending Dr: Otoniel Chaudhari CNM Ordering Physician: OTONIEL CHAUDHARIesults: 2 Benign Findings Date of Service: 11/08/24Follow Up: 1 Year From [facility] Mammogram Procedure(s): MM tomosynthesis diagnostic BI Accession Number(s): [id number] cc: OTONIEL CHAUDHARI CNM EXAMINATION: MM DIAGNOSTIC [...] 11/08/24 1315 DD/ 1205 TD/TT: 11/08/24 1225 Oyster Worker: us Otoniel Chaudhari CNM IMG BI PROCEDURES Final R esult * BI US Breast Limited Right (11/08/2024 12:00 PM EDT) Anatomical Region Laterality Modality Breast Right Ultrasound 11/08/2024 12:0 0 PM EDT Narrative 11/08/2024 1:18 PM EDT ? [facility] [place] ? [address] ?[place] [address] ? Ultrasound Report ? Signed ? Patient: Apple Schwab ?MR#: M ?? [id number] ? : 1980 ?Acct:[id number] ? Age/Sex: 44 / F ?ADM Date: 03/17/25 ? Loc: HO.MAMMO ? Attending Dr: Otoniel Chaudhari CNM ? Ordering Physician: OTONIEL CHAUDHARI CNM ?? Date of Service: 11/08/24 ?? Procedure(s): US breast RT limited ?? Accession Number(s): [id number] ? cc: OTONIEL CHAUDHARI CNM ? EXAMINATION: [...] DD/ 1200 ? TD/TT: 11/08/24 1244 ? Oyster Worker: ? Procedure Note Jerson, Image - 11/08/2024 [facility] [address] [place] [address] [place] [address] Ultrasound Report Signed Patient: Joshua WilsonsueverFigueroa#: M [id number] : 1980Acct:[id number] Age/Sex: 44 / FADM Date: 11/08/24 Loc: HO.MAMMO Attending Dr: Otoniel Chaudhari CNM Ordering Physician: OTONIEL CHAUDHARI CNM Date of Service: 11/08/24 Procedure(s): US breast RT limited Accession Number(s): [id number] cc: OTONIEL CHAUDHARI CNM EXAMINATION: MM DIAGNOSTIC [...] 11/08/24 1315 DD/ 1200 TD/TT: 11/08/24 1244 Oyster Worker: Otoniel Chaudhari CNM IMG US PROCEDURES Final R esult * HPV DNA, Low/High Risk (11/01/2024 9:02 AM EDT) HPV High Risk Negative Negative [facility] HPV Genotype 16 Negative Negative [facility] HPV Genotype 18 Negative Negative [facility] Comment:HPV testing performe d at [facility] (CLIA#[id number]), [address] [place] [phone].Testing for HPV was performed using the [employer] [...] EDT 11/02/2024 9:30 AM EDT us Otoniel CRESPO LAB BLOOD ORDERABLES Tereza dalton Result [facility] [address] [place] [phone] * Pap Smear (11/01/2024 9:02 AM EDT) Swab Cervix uteri structure / Unknown 11/01/2024 9:02 AM EDT 11/02/2024 9:30 AM EDT Narrative [facility] - 11/04/2024 7:05 AM EDT ----- ------- Name: Apple Schwab ?Age/Sex: 44/F ? : 1980 Unit#: [id number] ?? Attend Dr: OTONIEL CHAUDHARI CNM ?Re11/01/24 ?Status: DEP REF ? [facility] ? Disch: ? ----- ------- SPEC : [id number] ? RECD: 11/02/24 ? STATUS: ??SOUT ? REQ NUM: [id number] ? BRITANY: 11/01/24 ? SUBM DR: OTONIEL [...] Signed (signature on file) DENIS Hyde (ASCP) 11/04/24704 ? ----- ------- ? END OF REPORT ? us Otoniel Chaudhari [facility] CYTOLOGY ORDERABLES F inal Result [facility] [address] [place] [phone] * MR Pelvis w/ and w/o Contrast (10/30/2024 12:55 PM EST) Anatomical Region Laterality Modality Body, Pelvis Magnetic Resonan ce 10/30/2024 12:5 5 PM EST Narrative 11/02/2024 7:36 AM EDT ? [facility] ?[address] ?[place] [address] ? Magnetic Resonance Report ? Signed ? Patient: Apple Schwab ?MR#: M ?? [id number] ? : 1980 ?Acct:[id number] ? Age/Sex: 44 / F ?ADM Date: 10/30/24 ? Loc: HO.MRI ? Attending Dr: Trent Fang MD ? Ordering Physician: TRENT FANG MD ?? Date of Service: 10/30/24 ?? Procedure(s): MR pelvis wo/w con ?? Accession Number(s): [id number] ? cc: TRENT FANG MD ? EXAMINATION: [...] DD/ 1255 ? TD/TT: 10/30/24 1325 ? Oyster Worker: ? Procedure Note Donotuseinterpreter, Image - 11/02/2024 [place] [address] Magnetic Resonance Report Signed Patient: Figueroa Schwab#: M [id number] : 1980Acct:[id number] Age/Sex: 44 / FADM Date: 10/30/24 Loc: .MRI Attending Dr: Trent Fang MD Ordering Physician: TRENT FANG MD Date of Service: 10/30/24 Procedure(s): MR pelvis wo/w con Accession Number(s): [id number] cc: TRENT FANG MD EXAMINATION: MR PELVIS [...] 11/02/24 0733 DD/ 1255 TD/TT: 10/30/24 1325 Oyster Worker: Trent Fang MD IM MRI PROCEDURES Final Result * Hepatitis C Antibody with Reflex to HCV, RNA, Quantitative, Real-Time PCR (02/07/2023 10:04 AM EDT) Hepatitis C Antibody NON-REACT MIRA NON-REACT MIRA Nonpareil Index <0.02 <1.00 Nonpareil Comment: HCV antibody was non-reactive. There is no laboratory evidence of HCV infection. In most cases, no further action is required. However, if recent HCV exposure is suspected, a test for HCV RNA (test code 48789) is suggested. For additional information please refer to http://[employer].TipHive/faq/DZN94y8 (This link is being provided for informational/ educational purposes only.) Blood Venous blood specimen / Unknown 02/07/2023 10:04 AM EDT 02/07/2023 10:04 AM EDT Narrative [facility] - 02/17/2023 6:29 PM EDT FASTING:YES FASTING: YES Nehal Bailey UNDERGRADUATE INTERN LAB BLOOD ORDERABLES Final Result [facility] [address], [place] [phone] [employer] [place] [employer] [address] [place] [phone] * HIV-1/2 Antigen and Antibodies, Fourth Generation, with Reflexes (02/07/2023 10:04 AM EDT) [facility] HIV Antigen/Antibody, 4th Generation NON-REAC TIVE NON-REAC TIVE [employer] [place] [facility] Comment: HIV-1 antigen and HIV-1/HIV-2 antibodies [...] ?? For additional information please refer to http://[employer].Apok[employer]yis.GradeFund/faq/BHD965 (This link is being provided for informational/ educational purposes only.) The performance of this assay has not been clinically validated in patients less than 2 years old. Blood Venous blood specimen / Unknown 02/07/2023 10:04 AM EDT 02/07/2023 10:04 AM EDT Narrative [facility] - 02/17/2023 6:29 PM EDT FASTING:YES FASTING: YES us Nehal Bailey UNDERGRADUATE INTERN LAB BLOOD ORDERABLES Final Result [facility] [address], [place] [phone] [employer] [place] [facility] [address] [place] [phone] from Last 3 Months or Most Recently Relevant to Health Maintenance [facility] Care Teams Security Business Analyst Relationship Specialty Start Date End Date Cassie Adam NP [address] [place] [phone] PCP - General Family Medicine 10/06/23
== END 2025-01-13 10:16 | disposition home or self-care (01) ==
LOC: HO.HWS 09:33
PROVIDERS: Visit Provider Obstetrics & Gynecology
DX: N83.299 Other ovarian cyst, unspecified side (principal)
CPT/HCPCS: 99213

== ENCOUNTER 2025-01-25 12:27 | Outpatient (REF) | payer MEDICAID, SELFPAY ==
--- NOTE | ~2025-01-25 | CT_ITS ---
EXAMINATION: CT ABDOMEN AND PELVIS WITH CONTRAST CLINICAL INFORMATION: Follow-up left adnexal cyst. COMPARISON: Ultrasound January 04, [address] July 14, 2024 TECHNIQUE: Multidetector volumetric images were obtained from the superior aspect of the liver through the pubic symphysis following administration 85 mL of Omnipaque 350 intravenous contrast. Sagittal and coronal reformatted images were obtained on the technologist's workstation. Oral contrast: Present This CT examination was performed using dose optimization techniques as appropriate, variously including the following: *Automated exposure control *Adjustment of mA and/or kV according to patient size (this includes techniques or standardized protocols for targeted exams where dose is matched to indication/reason for exam; i.e. extremities or head) *Use of iterative reconstruction technique DLP: 488 mGY*cm FINDINGS: LUNG BASES: The visualized lung bases are unremarkable. LIVER, GALLBLADDER, AND BILIARY TREE: Mild diffuse fatty changes are evident in the liver. There is a stable subcentimeter lesion in the posterior medial liver dome and adjacent falciform ligament that are too small to characterize. The gallbladder is unremarkable with no evidence of radiopaque gallstones, gallbladder wall thickening, or obvious pericholecystic inflammatory changes. PANCREAS: Unremarkable. SPLEEN: Unremarkable. ADRENAL GLANDS: Unremarkable. KIDNEYS AND URETERS: The kidneys are normal in size, shape, and attenuation. No hydronephrosis, hydroureter, or calculi seen. No perinephric stranding. BLADDER: Unremarkable. GASTROINTESTINAL TRACT: The small and large bowel are unremarkable. The appendix is unremarkable. ABDOMINAL WALL: No significant hernia is appreciated. LYMPH NODES: Normal. VASCULAR: Unremarkable. PELVIC VISCERA: The uterus is unremarkable. IUD is no longer present. The right ovary demonstrates a crenulated cyst consistent with a mature rupturing follicle. Again noted is a large mass that appears to arise from the left ovary. It has migrated to the midline, situated superficial to the uterine fundus. It measures 8.9 x 6.7 x 5.6 cm (transverse by CC by AP), previously 5.1 x 7.6 x 5.2 cm. It measured 19 Hounsfield units. There are no internal septations. There is and of 4 mural thickening left laterally and extending inferiorly measuring up to 4 mm in thickness. Mural thickening was not clearly evident on the prior exam. There is trace pelvic free fluid. OSSEOUS STRUCTURES: Unremarkable. CT/CT abdomen pelvis w IV con IMPRESSION: Enlarging left ovarian cyst measured 8.9 cm long axis, previously 7.6 cm. There appears to be mural thickening measuring up to 4 mm that was not clearly apparent on the prior examination. This increases suspicion for neoplastic process. However, there is no ascites or adenopathy. Consider surgical consultation. Fatty liver Electronically signed by: Osman Smyth MD 01/25/2025 04:19 PM EDT
--- OUTSIDE RECORDS SUMMARY | 2025-01-25 13:53 | XMS_ITS | Clinical Summary ---
Author Organization [employer] Address [address] [place] [address] [address] [place] [address] Care Team Providers Care Certified Meeting Professional Name Role Phone Cassie Adam NP Primary Care Provider [phone] Allergies No known active allergies Medications fluticasone (Flonase) 50 MCG/ACT nasal spray Administer 1-2 sprays into affected nostril(s) at bed time. 01/18/20 22 Active acetaminophen (Tylenol) 500 MG tablet [...] 30 tablet 05/10/20 24 Active losartan (Cozaar) 100 MG tabletIndicat ions:Obesity (BMI 30-39.9) Take 1 tablet (100 mg) by mouth Once per day. 90 tablet 2 01/25/20 25 026 Active triamcinolone (Kenalog) 0.1 % creamIndicati ons:Chronic eczema of hand Apply topically if needed in the morning and at bedtime (eczema, hands). Mix tube with container of CeraVe Moisturizing Cream 80 g 1 01/25/20 25 Active triamcinolone (Kenalog) 0.1 % creamIndicati ons:Chronic eczema of hand Apply topically if needed in the morning and at bedtime (eczema, hands). Mix tube with container of CeraVe Moisturizing Cream 80 g 1 08/20/20 22 025 Discontinued(R eorder (will not trigger notification to Pharmacy)) losartan (Cozaar) 50 MG tablet Take 1 tablet (50 mg) by mouth Once per day. 30 tablet 5 12/01/19 25 025 Discontinued Active Problems Problem Noted Date Diagnosed Date Ovarian mass, left 01/24/2025 Assessment & Plan (01/24/2025 12:59 PM EDT): Upcoming visit with bookkeeping clerks supervisor/onc. 01/26. Obesity (BMI 30-39.9) 01/24/2025 Healthcare maintenance 11/30/2024 Assessment & Plan (01/10/2025 [...] GI Primary hypertension 11/30/2024 Assessment & Plan (01/24/2025 12:58 PM EDT): Improved but above goal, Trial increased losartan 100 mg, monitor for hypotension Assessment & Plan (01/10/2025 11:49 AM EDT): [...] reactive today? Chronic eczema of hand 06/04/2020 Assessment & Plan (01/24/2025 12:56 PM EDT): Resume topical steroid for flare BID for up to 2 weeks Dysmenorrhea 06/04/2020 Encounters Date Type Department Care Team Description 01/24/2025 11:15 AM EDT Office Visit [facility] MEDICINE [address] [place] [address] Cassie Adam NP Ovarian mass, left (Primary Dx); Obesity (BMI 30-39.9); Primary hypertension; Chronic eczema of hand 01/24/2025 Travel 01/21/[address] [address] Anastasiya Recinos MA Chart Prep 01/13/2025 Orders Only GENERIC EXTERNAL DATA DEPARTMENT Provider, Generic External Data 01/04/2025 Orders Only [facility] External Provider, [facility] 12/08/[address] [address] Anastasiya Recinos [place] Results 11/30/2024 11:00 AM EDT Office Visit [address] [address] Cassie Adam NP Healthcare maintenance (Primary Dx); Elevated blood pressure reading; Dietary counseling; Exercise counseling; Obesity (BMI 35.0-39.9 without comorbidity); Primary hypertension; Elevated LFTs 11/30/[address] [address] Cassie Adam NP Results; Referral 11/30/2024 Travel 11/23/2024 Patient Outreach [facility] [address] [place] [address] Cassie Adam NP Pre-visit Planning (SDOH negative, Tobacco screening negative.) 11/19/[address] [address] Anastasiya Recinos [place] Chart Prep 11/08/[address] [address] Daphne Rico, ADILIA Results 11/05/2024 Population Health Risk Score [facility] ([facility]) Department [address] [place] [phone] Provider, Population Health Generic 11/02/2024 Telephone [facility] WALK-IN CENTER [address] [place] [address] Trent Fang MD 11/02/2024 Orders Only [facility]ALK[facility]ENTER [address] [place] [address] [place] [address] Trent Fang MD Ovarian mass, left (Primary Dx) 11/01/2024 9:30 AM EDT Office Visit [facility] [place] [address] Otoniel Chaudhari CNM Cervical cancer screening (Primary Dx); Encounter for IUD removal; Axillary mass, right 11/01/2024 Orders Only [facility] [address] Otoniel Chaudhari CNM 11/01/2024 Travel 10/26/2024 9:00 AM EST Office Visit [facility] [address] Otoniel Chaudhari CNM Mechanical breakdown of intrauterine [...] Sign Reading Time Taken Comments Blood Pressure 130/90 01/24/2025 11:17 AM EDT Pulse 87 01/24/2025 11:17 AM EDT Temperature 36.2 ??C (97.1 ??F) 01/24/2025 1 1:17 AM EDT Respiratory Rate 20 01/24/2025 11:1 7 AM EDT Oxygen Saturation 98% 01/24/2025 11: 17 AM EDT Inhaled Oxygen Concentration - - Weight 92.4 kg (203 lb 12.8 oz) 025 11:17 AM EDT Height 157.5 cm (5' 2 ) 01/24/2025 11:1 7 AM EDT Body Mass Index 37.28 01/24/2025 11:17 AM EDT Plan of Treatment Upcoming Encounters Date Type Department Care Team (Late st Contact Info) Description 03/10/2025 9:45 AM EDT Office Visit [facility] OPTOMETRY [address] [place] [address] Marlyn [place], OD [address] [place] [address] 03/21/2025 10:15 AM EDT Office Visit [facility] MEDICINE [address] [place] [address] Cassie Adam, JOSUÉ [address] [place] [address] Health Maintenance Due Date Last Done Comments DTaP/Tdap/Td Vaccines (1 - Tdap) 1999 Hepatitis A Vaccines (1 of 2 - Risk 2-dose series) 1999 Hepatitis B Vaccines (1 of 3 - 19+ 3-dose series) 1999 COVID-19 Vaccine (3 - season) 2024 01/13/2021, 12/16/2020 Influenza Vaccine (Season Ended) 2025 Family Planning (PISQ) 11/01/2025 11/01/2024 Alcohol/Substance Use Screening 11/30/2025 11/30/2024 Depression Screening 11/30/2025 11/30/2024, 12/01/19 SDOH Screening 11/30/2025 11/30/2024 Disability Screening 01/24/2026 01/24/2025 Tobacco Screening 01/24/2026 01/24/2025 Mammogram 11/08/2026 11/08/2024, 10/23, 06/27/2022, Additional history [...] Procedure Name Priority Date/Time Associated Diagnosis Comments INHIBIN B Routine 01/13/2025 10:49 AM EDT CA 125 Routine 01/13/2025 10:49 AM EDT CA 19-9 Routine 01/13/2025 10:49 AM EDT ALPHA FETOPROTEIN, TUMOR MARKER Routine 01/13/2025 10:49 AM EDT CEA Routine 01/13/2025 10:49 AM EDT LD Routine 01/13/2025 10:49 AM EDT CREATININE, SERUM Routine 01/13/2025 10: 49 AM EDT UREA NITROGEN (BUN) Routine 01/13/2025 1 0:49 AM EDT CULTURE, URINE, ROUTINE Routine 01/13/2025 10:47 AM EDT Left flank pain US PELVIS TRANSVAGINAL Routine 01/04/2025 3:42 PM [...] Recently Relevant to Health Maintenance Results * Inhibin B (01/13/2025 10:49 AM EDT) Inhibin B 84 pg/mL [facility] Comment:Pre-menopausal <153P ost-menopausal <10Values obtained from different assay methods cannot be usedinterchangeably. Inhibin B levels, regardless of value,should not be interpreted as absolute evidence of thepresence or absence of disease.This test was developed and its analytical performancecharacteristics have been determined by [facility].It has not been cleared or approved by the FDA. This assayhas been validated pursuant to the CLIA regulations and isused for clinical purposes.THIS TEST WAS PERFORMED AT:[employer] [id number] [place] [id number] PINEDA MD,PHD,OG 01/13/2025 10:4 9 AM EDT 01/13/2025 10:49 AM EDT us Generic External Data Provider LAB BLOOD ORDERAB LES Final Result [facility] [address] [place] [address] [phone] * Creatinine, Serum (01/13/2025 10:49 AM EDT) [facility] Creatinine, Serum 0.52 0.5 - 1.4 mg/dL [facility] Estimated Glomerular Filt Rate >60 [facility] Comment:Chronic Kidney Disea se: Estimated GFR < 60 mL/min/1.72q0Iirjpe Kidney Disease: Estimated GFR < 15 mL/min/1.73m2 01/13/2025 10:4 9 AM EDT 01/13/2025 10:49 AM EDT Generic External Data Provider LAB BLOOD ORDERAB LES Final Result Performing Organization Address [facility] Phone Number [facility] [address] [place] [phone] * CA 19-9 (01/13/2025 10:49 AM EDT) [facility] CA 19-9 12 <34 U/mL [facility] Comment:This test was perfor med using the Siemenschemiluminescent method. Values obtained fromdifferent assay methods cannot be usedinterchangeably. CA 19-9 levels, regardless ofvalue, should not be interpreted as absoluteevidence of the presence or absence of disease.THIS TEST WAS PERFORMED AT:[facility] [place] [phone] ABBOTT MD 01/13/2025 10:4 9 AM EDT 01/13/2025 10:49 AM EDT Generic External Data Provider LAB BLOOD ORDERAB LES Final Result Performing Organization Address [facility] Co de Phone Number [facility] [address] [place] [phone] * Alpha-Fetoprotein, Tumor Marker (01/13/2025 10:49 AM EDT) [facility] Alpha Fetoprotein 2.4 ng/mL [facility] Comment:Reference Range: <6. 1The use of AFP as a tumor marker in females is not recommended.This test was performed using the Franchesca Coulterchemiluminescent method. Values obtained fromdifferent assay methods cannot be usedinterchangeably. AFP levels, regardless ofvalue, should not be interpreted as absoluteevidence of the presence or absence of disease.THIS TEST WAS PERFORMED AT:[facility] [address] [phone] ABBOTT MD 01/13/2025 10:4 9 AM EDT 01/13/2025 10:49 AM EDT Generic External Data Provider LAB BLOOD ORDERAB LES Final Result Performing Organization Address [facility] Number [facility] [address] [place] [address] [phone] * CA 125 (01/13/2025 10:49 AM EDT) [facility] CA 125 9 <35 U/mL [facility] Comment:This test was perfor med using the SiemensChemiluminescent method. Values obtained fromdifferent assay methods cannot be usedinterchangeably. CA 125 levels, regardless ofvalue, should not be interpreted as absoluteevidence of the presence or absence of disease.THIS TEST WAS PERFORMED AT:[facility] [address] [phone] ABBOTT MD 01/13/2025 10:4 9 AM EDT 01/13/2025 10:49 AM EDT Generic External Data Provider LAB BLOOD ORDERAB LES Final Result Performing Organization Address [facility] Co de Phone Number [facility] [address] [place] [phone] * BUN (Blood Urea Nitrogen) (01/13/2025 10:49 AM EDT) [facility] Urea Nitrogen (BUN) 11 9 - 16 mg/dL [facility] 01/13/2025 10:4 9 AM EDT 01/13/2025 10:49 AM EDT us Generic External Data Provider LAB BLOOD ORDERAB LES Final Result Performing Organization Address [facility] Co de Phone Number [facility] [address] [place] [phone] * (ABNORMAL) Lactate Dehydrogenase (LD) (01/13/2025 10:49 AM EDT) Lactate Dehydrogenase 239(H) 122 - 220 U/L [facility] 01/13/2025 10:4 9 AM EDT 01/13/2025 10:49 AM EDT us Generic External Data Provider LAB BLOOD ORDERAB LES Final Result Performing Organization Address [facility] Phone Number [facility] [address] [place] [phone] * CEA (01/13/2025 10:49 AM EDT) Carcinoembryonic Antigen <1.73 ng/mL [facility] Comment:CEA Reference Range: 93.4% Non-Smokers = 0.0-3.0 ng/mL 95.6% Smokers = 0.0-5.0 ng/mLCEA Methodology: Murillo Alinity i ChemiluminescentMicroparticle Immunoassay (CMIA)CEA testing can have significant value in monitoring ofpatients with diagnosed malignancies in whom changingconcentrations of CEA are observed. Values obtained withdifferent assay methods cannot be used interchangeably. 01/13/2025 10:4 9 AM EDT 01/13/2025 10:49 AM EDT us Generic External Data Provider LAB BLOOD ORDERAB LES Final Result Performing Organization Address [facility] de Phone Number [facility] [address] [place] [phone] * Culture, Urine, Routine (01/13/2025 10:47 AM EDT) Urine Urine specimen obtained by clean catch procedure / Unknown 01/13/2025 10:47 AM EDT 01/13/2025 11:51 AM EDT Comment:UACC Narrative [facility] - 01/14/2025 12:16 PM EDT Lactobacillus species Quant 10,000 to 50,000 cfu/mL Specimen Source: Urine clean catch us Trent Fang MD LAB MICROBIOLOGY - GENERAL ORDER KRAIG Final Result [facility] [address] [place] [phone] [phone] * US Pelvis Transvaginal (01/04/2025 3:42 PM EDT) Anatomical Region Laterality Modality Pelvis Ultrasound 01/04/2025 3:42 PM EDT Narrative 01/04/2025 3:44 PM EDT ? [facility] ?[address] [place] [address] ?[place] [address] ? Ultrasound Report ? Signed ? Patient: Apple Schwab ?MR#: M ?? [id number] ? : 1980 ?Acct:[id number] ? Age/Sex: 44 / F ?ADM Date: 01/04/25 ? Loc: HO.US ? Attending Dr: Jamie Alexander MD ? Ordering Physician: Jamie Alexander MD ?? Date of Service: 01/04/25 ?? Procedure(s): US pelvic and transvaginal ?? Accession Number(s): [id number] ? cc: TRENT FANG MD; Jamie Alexander [...] DD/ 1542 ? TD/TT: 01/04/25 1542 ? Master Scheduler: ? Procedure Note Jerson, Jeremiah - 01/04/2025 [place] [address] Ultrasound Report Signed Patient: Figueroa Schwab#: M [id number] : 1980Acct:[id number] Age/Sex: 44 / FADM Date: 01/04/25 Loc: HO.US Attending Dr: Jamie Alexander MD Ordering Physician: Jamie Alexander MD Date of Service: 01/04/25 Procedure(s): US pelvic and transvaginal Accession Number(s): [id number] cc: TRENT FANG MD; Jamie Alexander MD [...] OV> 01/04/25 1544 DD/ 1542 TD/TT: 01/04/25 154 Master Scheduler: [facility] External Provider IMG US PROCEDURES Final Result * TSH W/Reflex to FT4 (11/30/2024 12:08 PM EDT) TSH reflex Free T4 2.32 0.32 - 4.0 uIU/mL [facility] Blood Venous blood specimen / Unknown 11/30/2024 12:08 PM EDT 11/30/2024 1:12 PM EDT Cassie Adam NP LAB BLOOD ORDERABLES Final Resul t [facility] [address] [place] [phone] * Hemoglobin A1c (11/30/2024 12:08 PM EDT) Hemoglobin A1c 5.5 <6.0 % [facility] Comment:Hemoglobin A1C Refer ence Range [...] asaverage glucose, using the formula of the Y4X-VthmzpvSuzjcpk Glucose study (ADAG), Diabetes Care, Vol.31,#8,Mar. 2007 Blood Venous blood specimen / Unknown 11/30/2024 12:08 PM EDT 11/30/2024 1:12 PM EDT us Cassie Adam LAMP SHADE ASSEMBLER LAB BLOOD ORDERABLES Final Resul t Performing Organization Address [facility] Co de Phone Number [facility] [address] [place] [phone] * (ABNORMAL) Lipid Panel, Standard (11/30/2024 12:08 PM EDT) Triglycerides 100 <150 mg/dL [facility] Comment:Desirable Triglyceri de: less than [...] 190 mg/dL HDL Cholesterol 48 >40 mg/dL [facility] Comment:Desirable HDL: great er than 40 mg/dL Note: This HDL assay may give artificially low results in patients with liver disease. Blood Venous blood specimen / Unknown 11/30/2024 12:08 PM EDT 11/30/2024 1:12 PM EDT us Cassie Adam LAMP SHADE ASSEMBLER LAB BLOOD ORDERABLES Final Resul t Performing Organization Address [facility] Co de Phone Number [facility] [address] [place] [phone] * (ABNORMAL) Comprehensive Metabolic Panel (11/30/2024 [...] Kidney Disea se: Estimated GFR < 60 mL/min/1.25w6Ytybox Kidney Disease: Estimated GFR < 15 mL/min/1.73m2 [...] 11/30/2024 1:12 PM EDT us Cassie Adam LAMP SHADE ASSEMBLER LAB BLOOD ORDERABLES Final Resul t [facility] [address] [place] [phone] * BI Mammogram Diagnostic Tomosynthesis Bilateral (11/08/2024 12:05 PM EDT) Anatomical Region Laterality Modality Breast Bilateral Mammography 11/08/2024 12:0 5 PM EDT Narrative 11/08/2024 1:18 PM EDT ? [facility] ? [address] ?[place] [address] ? Mammography Report ? Signed ? Patient: Apple Schwab ?MR#: M ?? [id number] ? : 1980 ?Acct:[id number] ? Age/Sex: 44 / F ?ADM Date: 11/08/24 ? Loc: HO.MAMMO ? Attending Dr: Otoniel Chaudhari CNM ? Ordering Physician: OTONIEL CHAUDHARI CNHalle ?Results: 2 ?? Benign Findings ? Date of Service: 11/08/24 ?Follow Up: 1 Year From Orig ?? inal Mammogram ? Procedure(s): MM tomosynthesis diagnostic BI ?? Accession Number(s): [id number] ? cc: OTONIEL CHAUDHARI CNHalle ? EXAMINATION: [...] DD/ 1205 ? TD/TT: 11/08/24 1225 ? Master Scheduler: ? Procedure Note Jerson, Image - 11/08/2024 [place] [facility] [address] [place] [address] Mammography Report Signed Patient: Pramod SchwabRodolfo#: M [id number] : 1980Acct:[id number] Age/Sex: 44 / FADM Date: 11/08/24 Loc: APARNA Attending Dr: Otoniel Chaudhari CNM Ordering Physician: OTONIEL CHAUDHARIults: 2 Benign Findings Date of Service: 11/08/24Follow Up: 1 Year From Orig inal Mammogram Procedure(s): MM tomosynthesis diagnostic BI Accession Number(s): [id number] cc: OTONIEL CHAUDHARI CNM EXAMINATION: MM DIAGNOSTIC [...] 11/08/24 1315 DD/ 1205 TD/TT: 11/08/24 1225 Master Scheduler: us Otoniel Chaudhari CNM IMG BI PROCEDURES Final R esult * BI US Breast Limited Right (11/08/2024 12:00 PM EDT) Anatomical Region Laterality Modality Breast Right Ultrasound 11/08/2024 12:0 0 PM EDT Narrative 11/08/2024 1:18 PM EDT ? [facility] ? [address] ?[place] [address] ? Ultrasound Report ? Signed ? Patient: Joshua Figueroa,Apple ?MR#: M ?? [id number] ? : 1980 ?Acct:[id number] ? Age/Sex: 44 / F ?ADM Date: 03/17/25 ? Loc: HO.MAMMO ? Attending Dr: Otoniel Chaudhari CNM ? Ordering Physician: OTONIEL CHAUDHARI CNM ?? Date of Service: 11/08/24 ?? Procedure(s): US breast RT limited ?? Accession Number(s): [id number] ? cc: OTONIEL CHAUDHARI CNM ? EXAMINATION: [...] DD/ 1200 ? TD/TT: 11/08/24 1244 ? Master Scheduler: ? Procedure Note Donotuseinterpreter, Image - 11/08/2024 [facility] [address] [place], [place] [address] Ultrasound Report Signed Patient: Figueroa Schwab#: M [id number] : 1980Acct:[id number] Age/Sex: 44 / FADM Date: 11/08/24 Loc: HO.MAMMO Attending Dr: Otoniel Chaudhari CNM Ordering Physician: OTONIEL CHAUDHARI CNM Date of Service: 11/08/24 Procedure(s): US breast RT limited Accession Number(s): [id number] cc: OTONIEL CHAUDHARI CNM EXAMINATION: MM DIAGNOSTIC [...] 11/08/24 1315 DD/ 1200 TD/TT: 11/08/24 1244 Master Scheduler: Otoniel Chaudhari CNM IMG US PROCEDURES Final R esult * HPV DNA, Low/High Risk (11/01/2024 9:02 AM EDT) HPV High Risk Negative Negative [facility] HPV Genotype 16 Negative Negative [facility] HPV Genotype 18 Negative Negative [facility] Comment:HPV testing performe d at [facility] (CLIA#[id number]), [address] [place] [address].Testing for HPV was performed using the [employer] via[employer]nsics0system. The presence of HPV in the female [...] l Result [facility] [address] [place] [phone] * Pap Smear (11/01/2024 9:02 AM EDT) Swab Cervix uteri structure / Unknown 11/01/2024 9:02 AM EDT 11/02/2024 9:30 AM EDT Narrative [facility] - 11/04/2024 7:05 AM EDT ----- ------- Name: Apple Schwab ?Age/Sex: 44/F ? : 1980 Unit#: [id number] ?? Attend Dr: OTONIEL CHAUDHARI CNM ?Re11/01/24 ?Status: DEP REF ? Location: HO.HHCLNP ? Disch: ? ----- ------- SPEC : [id number] ? RECD: 11/02/24 ? STATUS: ??SOUT ? REQ NUM: [id number] ? BRITANY: 11/01/24 ? SUBM DR: OTONIEL [...] END OF REPORT ? us Otoniel Chaudhari [facility] CYTOLOGY ORDERABLES F inal Result [facility] [address] [place] [phone] [phone] * MR Pelvis w/ and w/o Contrast (10/30/2024 12:55 PM EST) Anatomical Region Laterality Modality Body, Pelvis Magnetic Resonan ce 10/30/2024 12:5 5 PM EST Narrative 11/02/2024 7:36 AM EDT ? [facility] ?[address] ?[place] [address] ? Magnetic Resonance Report ? Signed ? Patient: Apple Schwab ?MR#: M ?? [id number] ? : 1980 ?Acct:[id number] ? Age/Sex: 44 / F ?ADM Date: 10/30/24 ? Loc: HO.MRI ? Attending Dr: Trent Fang MD ? Ordering Physician: TRENT FANG MD ?? Date of Service: 10/30/24 ?? Procedure(s): MR pelvis wo/w con ?? Accession Number(s): [id number] ? cc: TRENT FANG MD ? EXAMINATION: [...] DD/ 1255 ? TD/TT: 10/30/24 1325 ? Master Scheduler: ? Procedure Note Jerson, Image - 11/02/2024 [place] [address] Magnetic Resonance Report Signed Patient: Figueroa Schwab#: M [id number] : 1980Acct:[id number] Age/Sex: 44 / FADM Date: 10/30/24 Loc: HO.MRI Attending Dr: Trent Fang MD Ordering Physician: TRENT FANG MD Date of Service: 10/30/24 Procedure(s): MR pelvis wo/w con Accession Number(s): [id number] cc: TRENT FANG MD EXAMINATION: MR PELVIS [...] Wills MD in OV> 11/02/24 0733 DD/ 1256 TD/TT: 10/30/24 1325 Master Scheduler: us Trent Fang MD IMG MRI PROCEDURES Final Result * Hepatitis C Antibody with Reflex to HCV, RNA, Quantitative, Real-Time PCR (02/07/2023 10:04 AM EDT) Hepatitis C Antibody NON-REACT MIRA NON-REACT MIRA [facility] [place] [employer] Index <0.02 <1.00 [facility] [employer] Comment: HCV antibody was non-reactive. There is no laboratory evidence of HCV infection. In most cases, no further action is required. However, if recent HCV exposure is suspected, a test for HCV RNA (test code 82065) is suggested. For additional information please refer to http://education.[employer]/faq/XEM39i3 (This link is being provided for informational/ educational purposes only.) Blood Venous blood specimen / Unknown 02/07/2023 10:04 AM EDT 02/07/2023 10:04 AM EDT Narrative [facility] - 02/17/2023 6:29 PM EDT FASTING:YES FASTING: YES Result [facility] Nehal Bailey ADVERTISING DISPATCH CLERK LAB BLOOD ORDERABLES Final Result [facility] [address], [place] [phone] [facility] [place] [employer] [address] [place] [address] * HIV-1/2 Antigen and Antibodies, Fourth Generation, with Reflexes (02/07/2023 10:04 AM EDT) Pathologist [facility] HIV Antigen/Antibody, 4th Generation NON-REAC TIVE NON-REAC TIVE [facility] [place] [facility] Comment: HIV-1 antigen and HIV-1/HIV-2 antibodies were [...] ?? For additional information please refer to http://education.[employer].Wrapp/faq/IST553 (This link is being provided for informational/ educational purposes only.) The performance of this assay has not been clinically validated in patients less than 2 years old. Blood Venous blood specimen / Unknown 02/07/2023 10:04 AM EDT 02/07/2023 10:04 AM EDT Narrative [facility] - 02/17/2023 6:29 PM EDT FASTING:YES FASTING: YES Nehal Bailey ADVERTISING DISPATCH CLERK LAB BLOOD ORDERABLES Final Result [facility] [address], [place] [phone] [facility] [address] [place] [address] from Last 3 Months or Most Recently Relevant to Health Maintenance Insurance [employer] [place] [address] [place] [id number] Care Teams Certified Meeting Professional Relationship Specialty Start Date End Date Cassie Adam NP [address] [place] [phone] PCP - General Family Medicine 10/06/23
[2025-01-25] MEDS: iohexoL 350 MG/ML 100 ML INFUS..BTL IV (15:43)
[2025-01-25] MEDS: Barium Sulfate Oral (Mocha) 450 ML ORAL.SUSP 900 ML PO (15:45)
== END 2025-01-25 12:28 | disposition home or self-care (01) ==
LOC: HO.CT 12:27
PROVIDERS: PCP Nurse Practitioner Family; Visit Provider Obstetrics & Gynecology
DX: N83.299 Other ovarian cyst, unspecified side (principal)
CPT/HCPCS: 74177; Q9967

== ENCOUNTER → 2025-01-25 12:27 | Outpatient (BNV) | payer MEDICAID, SELFPAY | PROVIDERS: PCP Nurse Practitioner Family; Visit Provider Radiology Diagnostic Radiology | DX: N83.202 Unspecified ovarian cyst, left side (principal) | CPT/HCPCS: 74177 ==

== ENCOUNTER 2025-03-29 10:36 | Outpatient (AMB) | payer MEDICAID, SELFPAY ==
--- NOTE | 2025-03-29 10:40 | A.OFFVIS_ITS ---
Vital Signs 03/29/25 10:46 Height 5 ft 2 in Weight 198 lb BMI 36.2 BP 134/86 Blood Pressure Location Rt brachial Position Sitting Pulse 76 Pulse Source Pulse Oximeter Pulse Oximetry (%) 99 Oxygen Delivery Method Room Air Intake Visit Reasons: Fatty Liver Intake Note: New pt for initial eval of fatty liver. [place] [facility] [place] Dr. Alexander. CC: C.O. LUQ pain x4 mos. Pt denies any additional sx or concerns at this time. Data Processor Required: Yes Data Processor Services: Data Processor Present Data Processor Name: [id number] Information Interpreted: clinical only Accompanied by: Self / Same As Patient Allergies No Known Allergies Allergy (Unverified 12/28/24 14:14) HPI HPI Fatty Liver: Details: 44-year-old female with past medical history of hypertension, uterine myoma is here today for initial consultation. Patient was sent to us by her OBGYN provider. Patient had CT scan done in the office was found to have fatty liver. Labs with transaminitis. Patient referred here for further evaluation. Patient denies any abdominal pain or discomfort. Denies any GI concerning symptoms. Denies melena, hematochezia, unintentional weight loss or ribbon like stools. Patient denies any dyspepsia, dysphagia or odynophagia. [facility] Medical History (Updated 03/29/25 @ 19:16 by Anika Castillo [facility]) Transaminitis HTN (hypertension) Surgical History Hx of tubal ligation Family History Mother HTN (hypertension) Diabetes Maternal Grandmother Diabetes Social History Household Members: Spouse and Children Housing: Apartment Alcohol intake: never Patient Tobacco Use Status: Never used Tobacco Current occupational status: employed Current occupation: HEALTH ASSESSMENT AND TREATMENT TEACHER Sexual orientation: Straight/Heterosexual Gender identity: Female Female Reproductive History Menstrual Age of Menarche: 11 Review of Systems Const Denies weight gain and Denies weight loss ENT Reports no additional complaints, Denies dysphagia and Denies odynophagia Card Reports no additional complaints Resp Reports no additional complaints GI Denies abdominal pain, Denies belching, Denies melena, Denies bloating, Denies change in bowel habits, Denies dysphagia, Denies excessive flatus, Denies dyspepsia, Denies heartburn, Denies diarrhea, Denies loose stools, Denies nausea, Denies odynophagia and Denies vomiting Reports no additional complaints Musc Reports no additional complaints Neuro Reports no additional complaints Psych Reports no additional complaints Endo Reports no additional complaints Physical Exam Vital Signs: Last Vital Signs Pulse 76 03/29/25 10:46 BP 134/86 03/29/25 10:46 Pulse Ox 99 03/29/25 10:46 Oxygen Delivery Method Room Air 03/29/25 10:46 BMI result Body Mass Index 36.2 Const General: healthy appearing and no acute distress Nutritional Appearance: well nourished and obese Orientation/consciousness: patient oriented x3 Resp Effort & Inspection: normal respiratory effort, able to speak in complete sentences, no tracheal deviation and symmetric chest movement Auscultation: clear to auscultation bilaterally Cardio Rate: regular rate GI Inspection: Yes normal to inspection, No distended and Yes obesity Palpation (GI): Soft to palpation, not firm, nontender and No hepatosplenomegaly present Auscultation: normal bowel sounds General: Yes no CVA tenderness Back/Spine/Pelvis Back: no CVA tenderness Skin General skin exam: elasticity normal, turgor normal and dry skin Neuro General: patient oriented x3 Psych Appearance: grossly normal Mental Status: mental status grossly normal Results Reviewed Results Reviewed: CT SCAN OF ABDOMEN AND PELVIS FINDINGS: LUNG BASES: The visualized lung bases are unremarkable. LIVER, GALLBLADDER, AND BILIARY TREE: Mild diffuse fatty changes are evident in the liver. There is a stable subcentimeter lesion in the posterior medial liver dome and adjacent falciform ligament that are too small to characterize. The gallbladder is unremarkable with no evidence of radiopaque gallstones, gallbladder wall thickening, or obvious pericholecystic inflammatory changes. PANCREAS: Unremarkable. SPLEEN: Unremarkable. ADRENAL GLANDS: Unremarkable. KIDNEYS AND URETERS: The kidneys are normal in size, shape, and attenuation. No hydronephrosis, hydroureter, or calculi seen. No perinephric stranding. BLADDER: Unremarkable. GASTROINTESTINAL TRACT: The small and large bowel are unremarkable. The appendix is unremarkable. ABDOMINAL WALL: No significant hernia is appreciated. LYMPH NODES: Normal. VASCULAR: Unremarkable. PELVIC VISCERA: The uterus is unremarkable. IUD is no longer present. The right ovary demonstrates a crenulated cyst consistent with a mature rupturing follicle. Again noted is a large mass that appears to arise from the left ovary. It has migrated to the midline, situated superficial to the uterine fundus. It measures 8.9 x 6.7 x 5.6 cm (transverse by CC by AP), previously 5.1 x 7.6 x 5.2 cm. It measured 19 Hounsfield units. There are no internal septations. There is and of 4 mural thickening left laterally and extending inferiorly measuring up to 4 mm in thickness. Mural thickening was not clearly evident on the prior exam. There is trace pelvic free fluid. OSSEOUS STRUCTURES: Unremarkable. CT/CT abdomen pelvis w IV con IMPRESSION: Enlarging left ovarian cyst measured 8.9 cm long axis, previously 7.6 cm. There appears to be mural thickening measuring up to 4 mm that was not clearly apparent on the prior examination. This increases suspicion for neoplastic process. However, there is no ascites or adenopathy. Consider surgical consultation. Fatty liver Laboratory Tests 11/30/24 01/13/25 12:08 10:49 Total Bilirubin 0.5 AST 76 H ALT 111 H Alkaline Phosphatase 81 Alpha Fetoprotein 2.4 Carcinoembryonic Ag < 1.73 CA 19-9 Antigen 12 CA 125 Antigen 9 Assessment & Plan Assessment & Plan (1) Transaminitis: Code(s): R74.01 - Elevation of levels of liver transaminase levels Category: Medical (2) Nonalcoholic fatty liver: Code(s): K76.0 - Fatty (change of) liver, not elsewhere classified Plan Transaminitis and fatty liver. Will rule out any autoimmune disorders. Will repeat liver profile and will add liver fibrosis panel. Patient will be sent for ultrasound with elastography. Discussed with patient low-fat, low-salt, low carb and high-protein diet. Weight loss and exercise recommended. Patient will follow-up in 4 months. She will be due to go for colonoscopy. We can discuss going for colonoscopy next visit. She is agreeable to current plan of care and verbalizes understanding of instructions. She was given the opportunity to ask questions and all questions answered. Thank you for allowing me to participate in her care Orders: Orders Hepatitis A,B,C Profile Today R79.89 - Other specified abnormal findings of blood chemistry Smooth Muscle Antibody Today R79.89 - Other specified abnormal findings of blood chemistry Ceruloplasmin Today R79.89 - Other specified abnormal findings of blood chemistry Transglutaminase IgA Today R10.9 - Unspecified abdominal pain Ferritin Today R74.8 - Abnormal levels of other serum enzymes Mitochondrial Antibody Today R79.89 - Other specified abnormal findings of blood chemistry Complete Blood Count no Diff Today K21.9 - Gastro-esophageal reflux disease without esophagitis Prothrombin Time INR Today R74.8 - Abnormal levels of other serum enzymes C Reactive Protein Today K58.9 - Irritable bowel syndrome, unspecified Liver Panel Today R74.01 - Elevation of levels of liver transaminase levels Liver Fibrosis Pnl Today K76.0 - Fatty (change of) liver, not elsewhere classified US abdomen comp w elastography Today R79.89 - Other specified abnormal findings of blood chemistry Coding Level of Care Code New Pt Level 4 (46413) Diagnoses Transaminitis R74.01 Nonalcoholic fatty liver K76.0 Time Spent (min) 45 Comment 35 minutes spent with patient and additional 10 minutes spent reviewing her records
[2025-03-29 10:46] VITALS: BP 134/86; PULSE 76; O2SAT 99; BMI 36.2
--- OUTSIDE RECORDS SUMMARY | 2025-03-29 11:16 | XMS_ITS | Clinical Summary ---
Author Organization [employer] Address [address] [place] [address] Care Team Providers Care Hand Ii Blocker Name Role Phone Cassie Adam NP Primary Care Provider [phone] Allergies No known active allergies Medications fluticasone [...] doses. 30 tablet 4 Active losartan (Cozaar) 100 MG tabletIndicatio ns:Obesity (BMI 30-39.9) Take 1 tablet (100 mg) by mouth Once per day. 90 tablet 2 5 01/25/20 26 Active triamcinolone (Kenalog) 0.1 % creamIndication s:Chronic eczema of hand Apply topically if needed in the morning and at bedtime (eczema, hands). Mix tube with container of CeraVe Moisturizing Cream 80 g 1 5 Active Active Problems Problem Noted Date Diagnosed Date Ovarian mass, left 01/24/2025 Assessment & Plan (01/24/2025 12:59 PM EDT): Upcoming visit with assistant branch manager/onc. 6/. Obesity (BMI 30-39.9) 01/24/2025 Healthcare maintenance 11/30/2024 [...] Encounters Date Type Department Care Team Description 03/18/2025 Telephone [facility] [address] [place] [address] Anastasiya Recinos MA Chart Prep 03/10/2025 9:45 AM EDT Office Visit [facility] OPTOMETRY [address] [place] [address] Marlyn Bermudez, IBAN Dry eyes (Primary Dx); Floppy eyelid syndrome; Myopia with presbyopia of both eyes 03/10/2025 Travel 01/25/2025 Orders Only [facility] External Provider, [facility] 01/24/2025 11:15 AM EDT Office Visit [facility] [address] [place] [address] Cassie Adam NP Ovarian mass, left (Primary Dx); Obesity (BMI 30-39.9); Primary hypertension; Chronic eczema of hand 01/24/2025 Travel 01/21/2025 Telephone [facility] [address] [place] [address] Anastasiya Recinos MA Chart Prep 01/13/2025 Orders Only GENERIC EXTERNAL DATA DEPARTMENT Provider, Generic External Data 01/04/2025 Orders Only [facility] External Provider, [facility] from Last 3 Months Immunizations Immunization Administration [...] 87 01/24/2025 11:17 AM EDT Temperature 36.2 C (97.1 F) 01/24/2025 11:17 AM EDT Respiratory Rate 20 01/24/2025 11:1 7 AM EDT Oxygen Saturation 98% 01/24/2025 11: 17 AM EDT Inhaled Oxygen Concentration - - Weight 92.4 kg (203 lb 12.8 oz) 025 11:17 AM EDT Height 157.5 cm (5' 2 ) 01/24/2025 11:1 7 AM EDT Body Mass Index 37.28 01/24/2025 11:17 AM EDT Plan of Treatment Health Maintenance Due Date Last Done Comments HPV Vaccines (1 - 3-dose series) 1995 DTaP/Tdap/Td Vaccines (1 - Tdap) 1999 Hepatitis A Vaccines (1 of 2 - Risk 2-dose series) 1999 Hepatitis B Vaccines (1 of 3 - 19+ 3-dose series) 1999 COVID-19 Vaccine ( - season) 2024 01/13/2021, 12/16/2020 Influenza Vaccine (#1) 2025 Family Planning (PISQ) 11/01/2025 11/01/2024 Alcohol/Substance Use Screening 11/30/2025 11/30/2024 Depression Screening 11/30/2025 11/30/2024, 12/01/19 SDOH Screening 11/30/2025 11/30/2024 Disability Screening 01/24/2026 01/24/2025 Tobacco Screening 01/24/2026 01/24/2025 Mammogram 11/08/2026 11/08/2024, 0302/2025, 06/27/2022, Additional history [...] Years) and At-Risk Patients (6 to 49) Years Aged Out No longer eligible based on patient's age to complete this topic RSV under 20 months Aged Out No longe r eligible based on patient's age to complete this topic Rotavirus Vaccines Aged Out No longer eligible based on patient's age to complete this topic Procedures Procedure Name Priority Date/Time Associated Diagnosis Comments CT ABDOMEN PELVIS W CONTRAST Routine 01/25/2025 3:27 PM EDT INHIBIN B Routine 01/13/2025 10:49 AM EDT [...] PELVIS TRANSVAGINAL Routine 01/04/2025 3:42 PM EDT LIPID PANEL, STANDARD Routine 11/30/2024 12:08 PM EDT Healthcare maintenance Primary hypertension BI MAMMOGRAM DIAGNOSTIC TOMOSYNTHESIS BILATERAL Urgent 11/08/2024 12:05 PM EDT Axillary mass, right HPV DNA, LOW/HIGH RISK Routine 11/01/2024 9:02 AM EDT PAP SMEAR Routine 11/01/2024 9:02 AM EDT Cervical cancer screening HEPATITIS C AB W/REFL TO HCV RNA, QN, PCR Routine 02/07/2023 10:04 AM EDT Health care maintenance HIV 1/2 ANTIGEN/ANTIBODY, FOURTH GENERATION W/RFL Routine 02/07/2023 10:04 AM EDT Health care maintenance from Last 3 Months or Most Recently Relevant to Health Maintenance Results * CT Abdomen Pelvis w/ Contrast (01/25/2025 3:27 PM EDT) Anatomical Region Laterality Modality Body, Pelvis, Abdomen Computed T omography 01/25/2025 3:27 PM EDT Narrative 01/25/2025 4:22 PM EDT [address] [address] [address] Scan Report Signed Patient: Apple Schwab MR#: [id number] : 1980 Acct:[id number] Age/Sex: 44 / F ADM Date: 01/25/25 Loc: .CT Attending Dr: Jamie Alexander MD Ordering Physician: Jamie Alexander MD Date of Service: 01/25/25 Procedure(s): CT abdomen pelvis w IV con Accession Number(s): [id number] cc: Cassie Adam NP; Jamie Alexander MD Report Number: [id number]: Total DLP = 488.00 mGy-cm EXAMINATION: CT ABDOMEN AND PELVIS WITH CONTRAST CLINICAL INFORMATION: Follow-up left adnexal cyst. COMPARISON: Ultrasound January 04, [address] July 14, 2024 TECHNIQUE: Multidetector volumetric images were obtained from the superior aspect of the liver through the pubic symphysis following administration 85 mL of Omnipaque 350 intravenous contrast. Sagittal and coronal reformatted images were obtained on the technologist's workstation. Oral contrast: Present This CT examination was performed using dose optimization techniques as appropriate, variously including the following: *Automated exposure control *Adjustment of mA and/or kV according to patient size (this includes techniques or standardized protocols for targeted exams where dose is matched to indication/reason for exam; i.e. extremities or head) *Use of iterative reconstruction technique DLP: 488 mGY*cm FINDINGS: LUNG BASES: The visualized lung bases are unremarkable. LIVER, GALLBLADDER, AND BILIARY TREE: Mild diffuse fatty changes are evident in the liver. There is a stable subcentimeter lesion in the posterior medial liver dome and adjacent falciform ligament that are too small to characterize. The gallbladder is unremarkable with no evidence of radiopaque gallstones, gallbladder wall thickening, or obvious pericholecystic inflammatory changes. PANCREAS: Unremarkable. SPLEEN: Unremarkable. ADRENAL GLANDS: Unremarkable. KIDNEYS AND URETERS: The kidneys are normal in size, shape, and attenuation. No hydronephrosis, hydroureter, or calculi seen. No perinephric stranding. BLADDER: Unremarkable. GASTROINTESTINAL TRACT: The small and large bowel are unremarkable. The appendix is unremarkable. ABDOMINAL WALL: No significant hernia is appreciated. LYMPH NODES: Normal. VASCULAR: Unremarkable. PELVIC VISCERA: The uterus is unremarkable. IUD is no longer present. The right ovary demonstrates a crenulated cyst consistent with a mature rupturing follicle. Again noted is a large mass that appears to arise from the left ovary. It has migrated to the midline, situated superficial to the uterine fundus. It measures 8.9 x 6.7 x 5.6 cm (transverse by CC by AP), previously 5.1 x 7.6 x 5.2 cm. It measured 19 Hounsfield units. There are no internal septations. There is and of 4 mural thickening left laterally and extending inferiorly measuring up to 4 mm in thickness. Mural thickening was not clearly evident on the prior exam. There is trace pelvic free fluid. OSSEOUS STRUCTURES: Unremarkable. CT/CT abdomen pelvis w IV con IMPRESSION: Enlarging left ovarian cyst measured 8.9 cm long axis, previously 7.6 cm. There appears to be mural thickening measuring up to 4 mm that was not clearly apparent on the prior examination. This increases suspicion for neoplastic process. However, there is no ascites or adenopathy. Consider surgical consultation. Fatty liver Electronically signed by: Osman Smyth MD 01/25/2025 04:19 PM EDT RP Dictated By: Osman Smyth MD Signed By: <Electronically signed by Osman Smyth MD in OV> 01/25/25 1619 DD/ 1527 TD/TT: 01/25/25 1542 Metal Reed Tuner: Procedure Note Donotuseinterpreter, Image - 01/25/[address] [place] [address] [address] Scan Report Signed Patient: Pramod SchwabRodolfo#: M [id number] : 1980Acct:[id number] Age/Sex: 44 / FADM Date: 01/25/25 Loc: HO.CT Attending Dr: Jamie Alexander MD Ordering Physician: Jamie Alexander MD Date of Service: 01/25/25 Procedure(s): CT abdomen pelvis w IV con Accession Number(s): [id number] cc: Cassie Adam NP; Jamie Alexander MD Report Number: [id number]: Total DLP = 488.00 mGy-cm EXAMINATION: CT ABDOMEN AND PELVIS WITH CONTRAST CLINICAL INFORMATION: Follow-up left adnexal cyst. COMPARISON: Ultrasound January 04, [address] July 14, 2024 TECHNIQUE: Multidetector volumetric images were obtained from the superior aspect of the liver through the pubic symphysis following administration 85 mL of Omnipaque 350 intravenous contrast. Sagittal and coronal reformatted images were obtained on the technologist's workstation. Oral contrast: Present This CT examination was performed using dose optimization techniques as appropriate, variously including the following: *Automated exposure control *Adjustment of mA and/or kV according to patient size (this includes techniques or standardized protocols for targeted exams where dose is matched to indication/reason for exam; i.e. extremities or head) *Use of iterative reconstruction technique DLP: 488 mGY*cm FINDINGS: LUNG BASES: The visualized lung bases are unremarkable. LIVER, GALLBLADDER, AND BILIARY TREE: Mild diffuse fatty changes are evident in the liver. There is a stable subcentimeter lesion in the posterior medial liver dome and adjacent falciform ligament that are too small to characterize. The gallbladder is unremarkable with no evidence of radiopaque gallstones, gallbladder wall thickening, or obvious pericholecystic inflammatory changes. PANCREAS: Unremarkable. SPLEEN: Unremarkable. ADRENAL GLANDS: Unremarkable. KIDNEYS AND URETERS: The kidneys are normal in size, shape, and attenuation. No hydronephrosis, hydroureter, or calculi seen. No perinephric stranding. BLADDER: Unremarkable. GASTROINTESTINAL TRACT: The small and large bowel are unremarkable. The appendix is unremarkable. ABDOMINAL WALL: No significant hernia is appreciated. LYMPH NODES: Normal. VASCULAR: Unremarkable. PELVIC VISCERA: The uterus is unremarkable. IUD is no longer present. The right ovary demonstrates a crenulated cyst consistent with a mature rupturing follicle. Again noted is a large mass that appears to arise from the left ovary. It has migrated to the midline, situated superficial to the uterine fundus. It measures 8.9 x 6.7 x 5.6 cm (transverse by CC by AP), previously 5.1 x 7.6 x 5.2 cm. It measured 19 Hounsfield units. There are no internal septations. There is and of 4 mural thickening left laterally and extending inferiorly measuring up to 4 mm in thickness. Mural thickening was not clearly evident on the prior exam. There is trace pelvic free fluid. OSSEOUS STRUCTURES: Unremarkable. CT/CT abdomen pelvis w IV con IMPRESSION: Enlarging left ovarian cyst measured 8.9 cm long axis, previously 7.6 cm. There appears to be mural thickening measuring up to 4 mm that was not clearly apparent on the prior examination. This increases suspicion for neoplastic process. However, there is no ascites or adenopathy. Consider surgical consultation. Fatty liver Electronically signed by: Osman Smyth MD 01/25/2025 04:19 PM EDT RP Dictated By: Osman Smyth MD Signed By: <Electronically signed by Osman Smyth MD in OV> 01/25/25 1619 DD/ 1527 TD/TT: 01/25/25 1542 Metal Reed Tuner: [facility] External Provider IMG CT PROCEDURES Final Result * Inhibin B (01/13/2025 10:49 AM EDT) Inhibin B 84 pg/mL [facility] Comment:Pre-menopausal <153P ost-menopausal <10Values obtained from different assay methods cannot be usedinterchangeably. Inhibin B levels, regardless of value,should not be interpreted as absolute evidence of thepresence or absence of disease.This test was developed and its analytical performancecharacteristics have been determined by [facility] [employer].It has not been cleared or approved by the FDA. This assayhas been validated pursuant to the CLIA regulations and isused for clinical purposes.THIS TEST WAS PERFORMED AT:[employer]TAO [id number] [facility] [place] [address]MZJOMTAMMIE PINEDA MD,PHD,OG 01/13/2025 10:4 9 AM EDT 01/13/2025 10:49 AM EDT Generic External Data Provider LAB BLOOD ORDERAB LES Final Result [facility] [address] [place] [phone] * Creatinine, Serum (01/13/2025 10:49 AM EDT) Creatinine, Serum 0.52 0.5 - 1.4 mg/dL [facility] Estimated Glomerular Filt Rate >60 [facility] Comment:Chronic Kidney Disea se: Estimated GFR < 60 mL/min/1.63n4Ytdsud Kidney Disease: Estimated GFR < 15 mL/min/1.73m2 01/13/2025 10:4 9 AM EDT 01/13/2025 10:49 AM EDT Generic External Data Provider LAB BLOOD ORDERAB LES Final Result Performing Organization Address [facility] de Phone Number [facility] [address] [place] [phone] * CA 19-9 (01/13/2025 10:49 AM EDT) [facility] CA 19-9 12 <34 U/mL [facility] Comment:This test was perfor med using the Siemenschemiluminescent method. Values obtained fromdifferent assay methods cannot be usedinterchangeably. CA 19-9 levels, regardless ofvalue, should not be interpreted as absoluteevidence of the presence or absence of disease.THIS TEST WAS PERFORMED AT:[facility] [place] [phone] ABBOTT MD 01/13/2025 10:4 9 AM EDT 01/13/2025 10:49 AM EDT Generic External Data Provider LAB BLOOD ORDERAB LES Final Result Performing Organization Address [facility] Co de Phone Number [facility] [address] [place] [address] [phone] * Alpha-Fetoprotein, Tumor Marker (01/13/2025 10:49 AM EDT) [facility] Alpha Fetoprotein 2.4 ng/mL [facility] Comment:Reference Range: <6. 1The use of AFP as a tumor marker in females is not recommended.This test was performed using the NaturalMotionchemiluminescent method. Values obtained fromdifferent assay methods cannot be usedinterchangeably. AFP levels, regardless ofvalue, should not be interpreted as absoluteevidence of the presence or absence of disease.THIS TEST WAS PERFORMED AT:[facility] [place] [phone] ABBOTT MD 01/13/2025 10:4 9 AM EDT 01/13/2025 10:49 AM EDT Generic External Data Provider LAB BLOOD ORDERAB LES Final Result Performing Organization Address [facility] de Phone Number [facility] [address] [place] [phone] * CA 125 (01/13/2025 10:49 AM EDT) CA 125 9 <35 U/mL [facility] Comment:This test was perfor med using the SiemensChemiluminescent method. Values obtained fromdifferent assay methods cannot be usedinterchangeably. CA 125 levels, regardless ofvalue, should not be interpreted as absoluteevidence of the presence or absence of disease.THIS TEST WAS PERFORMED AT:[facility] [place] [phone] ABBOTT MD 01/13/2025 10:4 9 AM EDT 01/13/2025 10:49 AM EDT Generic External Data Provider LAB BLOOD ORDERAB LES Final Result Performing Organization Address [facility] Co de Phone Number [facility] [address] [place] [phone] * BUN (Blood Urea Nitrogen) (01/13/2025 10:49 AM EDT) Urea Nitrogen (BUN) 11 9 - 16 mg/dL [facility] 01/13/2025 10:4 9 AM EDT 01/13/2025 10:49 AM EDT Generic External Data Provider LAB BLOOD ORDERAB LES Final Result Performing Organization Address City/[facility] Co de Phone Number [facility] [address] [place] [phone] * (ABNORMAL) Lactate Dehydrogenase (LD) (01/13/2025 10:49 AM EDT) Lactate Dehydrogenase 239(H) 122 - 220 U/L [facility] 01/13/2025 10:4 9 AM EDT 01/13/2025 10:49 AM EDT Generic External Data Provider LAB BLOOD ORDERAB LES Final Result Performing Organization Address [facility] de Phone Number [facility] [address] [place] [phone] * CEA (01/13/2025 10:49 AM EDT) Carcinoembryonic Antigen <1.73 ng/mL [facility] Comment:CEA Reference Range: 93.4% Non-Smokers = [...] ORDERAB LES Final Result Performing Organization Address [facility] Co de Phone Number [facility] [address] [place] [phone] * Culture, Urine, Routine (01/13/2025 10:47 AM EDT) Urine Urine specimen obtained by clean catch procedure / Unknown 01/13/2025 10:47 AM EDT 01/13/2025 11:51 AM EDT Comment:UACC Narrative [facility] - 01/14/2025 12:16 PM EDT Lactobacillus species Quant 10,000 to 50,000 cfu/mL Specimen Source: Urine clean catch us Trent Fang MD LAB MICROBIOLOGY - GENERAL ORDER KRAIG Final Result Performing Organization Address City/State/[facility] Co de Phone Number [facility] [address] [place] [phone] * US Pelvis Transvaginal (01/04/2025 3:42 PM EDT) Anatomical Region Laterality Modality Pelvis Ultrasound 01/04/2025 3:42 PM EDT Narrative 01/04/2025 3:44 PM EDT [address] [address] Ultrasound Report Signed Patient: Apple Schwab MR#: [id number] : 1980 Acct:[id number] Age/Sex: 44 / F ADM Date: 01/04/25 Loc: HO.US Attending Dr: Jamie Alexander MD Ordering Physician: Jamie Alexander MD Date of Service: 01/04/25 Procedure(s): US pelvic and transvaginal Accession Number(s): [id number] cc: TRENT FANG MD; Jamie Alexander MD [...] 01/04/25 1544 DD/ 1542 TD/TT: 01/04/25 1542 Metal Reed Tuner: Procedure Note Donotuseinterpreter, Image - 01/04/2025 [place] [address] Ultrasound Report Signed Patient: Figueroa Schwab#: M [id number] : 1980Acct:[id number] Age/Sex: 44 / FADM Date: 01/04/25 Loc: HO.US Attending Dr: Jamie Alexander MD Ordering Physician: Jamie Alexander MD Date of Service: 01/04/25 Procedure(s): US pelvic and transvaginal Accession Number(s): [id number] cc: TRENT FANG MD; Jamie Alexander MD [...] 01/04/25 1544 DD/ 1542 TD/TT: 01/04/25 1542 Metal Reed Tuner: [facility] External Provider IMG US PROCEDURES Final Result * (ABNORMAL) Lipid Panel, Standard (11/30/2024 12:08 PM EDT) Triglycerides 100 <150 mg/dL [facility] Comment:Desirable Triglyceri de: less than 150 mg/dLBorderline High Triglyceride 150-199 mg/dLHigh Triglyceride: 200-499 mg/dLVery High Triglyceride: greater than or equal to 5OO mg/dL Cholesterol 185 <200 mg/dL [facility] Comment:Desirable Cholestero l: less than 200 mg/dLBorderline High Cholesterol: 200-239 mg/dLHigh Cholesterol: greater than 239 mg/dL LDL Cholesterol Calculated 117(H) <100 mg/dL [facility] Comment:Desirable LDL: less than 100 mg/dLNear Optimal/Above Optimal LDL: 110- 129 mg/dLBorderline High LDL: 130-159 mg/dLHigh LDL: 160-189 mg/dLVery High LDL: greater than or equal to 190 mg/dL HDL Cholesterol 48 >40 mg/dL [facility] Comment:Desirable HDL: great er than 40 mg/dL Note: This HDL assay may give artificially low results in patients with liver disease. Blood Venous blood specimen / Unknown 11/30/2024 12:08 PM EDT 11/30/2024 1:12 PM EDT Cassie Adam NP LAB BLOOD ORDERABLES Final Resul t [facility] [address] [place] [phone] [phone] * BI Mammogram Diagnostic Tomosynthesis Bilateral (11/08/2024 12:05 PM EDT) Anatomical Region Laterality Modality Breast Bilateral Mammography 11/08/2024 12:0 5 PM EDT Narrative 11/08/2024 1:18 PM EDT [facility] [address] [place], [place] [address] Mammography Report Signed Patient: Apple Schwab MR#: [id number] : 1980 Acct:[id number] Age/Sex: 44 / F ADM Date: 11/08/24 Loc: HO.MAMMO Attending Dr: Otoniel Chaudhari CNM Ordering Physician: OTONIEL CHAUDHARI CNM Results: 2 Benign Findings Date of Service: 11/08/24 Follow Up: 1 Year From [facility] Mammogram Procedure(s): MM tomosynthesis diagnostic BI Accession Number(s): [id number] cc: OTONIEL CHAUDHARI CNM EXAMINATION: MM DIAGNOSTIC [...] 11/08/24 1315 DD/ 1205 TD/TT: 11/08/24 1225 Metal Reed Tuner: Procedure Note Donotuseinterpreter, Image - 11/08/2024 [facility] [address] [place] [address] [place] [address] Mammography Report Signed Patient: Figueroa Schwab#: M [id number] : 1980Acct:[id number] Age/Sex: 44 / FADM Date: 11/08/24 Loc: HO.MAMMO Attending Dr: Otoniel Chaudhari CNM Ordering Physician: OTONIEL CHAUDHARIesults: 2 Benign Findings Date of Service: 11/08/24Follow Up: 1 Year From Orig inal Mammogram Procedure(s): MM tomosynthesis diagnostic BI Accession Number(s): [id number] cc: OTONIEL CHAUDHARI CNM EXAMINATION: MM DIAGNOSTIC [...] for their next mammogram. Electronically signed by: Agaat Dugan DO 11/08/2024 01:15 PM EDT Dictated By: Agata Dugan DO Signed By: <Electronically signed by Agata Dugan DO in OV> 11/08/24 1315 DD/ 1205 TD/TT: 11/08/24 1225 Metal Reed Tuner: Otoniel Chaudhari CNM IMG BI PROCEDURES Final R esult * HPV DNA, Low/High Risk (11/01/2024 9:02 AM EDT) HPV High Risk Negative Negative [facility] HPV Genotype 16 Negative Negative [facility] HPV Genotype 18 Negative Negative [facility] Comment:HPV testing performe d at [facility] (CLIA#[id number]), [address] [place] [address].Testing for HPV was performed using the [employer] [...] CNM LAB BLOOD ORDERABLES Tereza l Result [facility] [address] [place] [phone] * Pap Smear (11/01/2024 9:02 AM EDT) Swab Cervix uteri structure / Unknown 11/01/2024 9:02 AM EDT 11/02/2024 9:30 AM EDT Narrative [facility] - 11/04/2024 7:05 AM EDT ----- ------- Name: Joshua FigueroaApple Age/Sex: 44/F : 1980 Unit#: [id number] Attend Dr: OTONIEL CHAUDHARI [facility] Re11/01/24 Status: DEP [facility] ----- ------- SPEC : [id number] RECD: 11/02/24 STATUS: CAROLINA DECKER NUM: [id number] BRITANY: 11/01/[address]: OTONIEL CHAUDHARI [facility] ENTERED: 11/02/24 SP TYPE: Pap Smr OTHR DR: ORDERED: Pap Smear Interpretation Satisfactory for evaluation. Negative for intraepithelial lesion or malignancy. No endocervical cells seen. HPV High Risk: Negative HPV Genotyping 16: Negative HPV Genotyping 18: Negative Clinical Information LMP: Unknown date Previous PAP test: Unknown date/findings Other surgery: IUD Material Received ThinPrep-Cervical ----- ------- Signed (signature on file) Everett Cejacarmen CT ([facility]) 11/04/24 0705 ----- ------- END OF REPORT Otoniel Chaudhari [facility] LAB CYTOLOGY ORDERABLES F inal Result Performing Organization Address City/[facility] Co de Phone Number [address] [phone] * Hepatitis C Antibody with Reflex to HCV, RNA, Quantitative, Real-Time PCR (02/07/2023 10:04 AM EDT) Pathologist [facility] Hepatitis C Antibody NON-REACT MIRA NON-REACT MIRA [facility] [employer] ([facility]) Index <0.02 <1.00 [facility] [employer] [facility] Comment: HCV antibody was non-reactive. There is no laboratory evidence of HCV infection. In most cases, no further action is required. However, if recent HCV exposure is suspected, a test for HCV RNA (test code 24936) is suggested. For additional information please refer to http://education.[employer].bright box/faq/CHR06g8 (This link is being provided for informational/ educational purposes only.) Blood Venous blood specimen / Unknown 02/07/2023 10:04 AM EDT 02/07/2023 10:04 AM EDT Narrative [facility] - 02/17/2023 6:29 PM EDT FASTING:YES FASTING: YES Nehal Bailey [facility] BLOOD ORDERABLES Final Result Performing Organization Address City/[facility]/ZIP Co de Phone Number [facility] [address] [place] [address], [place] [address] [employer] [place] [employer] [facility] [address] [place] [address] * HIV-1/2 Antigen and Antibodies, Fourth Generation, with Reflexes (02/07/2023 10:04 AM EDT) HIV Antigen/Antibody, 4th Generation NON-REAC TIVE NON-REAC TIVE [facility] [facility] [employer] [place] [facility] Comment: HIV-1 antigen and HIV-1/HIV-2 antibodies were not detected. There is no laboratory evidence of HIV infection. PLEASE NOTE: This information has been disclosed to you from records whose confidentiality may be protected by state law. If your state requires such protection, then the state law prohibits you from making any further disclosure of the information without the specific written consent of the person to whom it pertains, or as otherwise permitted by law. A general authorization for the release of medical or other information is NOT sufficient for this purpose. For additional information please refer to http://education.[employer]/faq/IMX960 (This link is being provided for informational/ educational purposes only.) The performance of this assay has not been clinically validated in patients less than 2 years old. Blood Venous blood specimen / Unknown 02/07/2023 10:04 AM EDT 02/07/2023 10:04 AM EDT Narrative [facility] - 02/17/2023 6:29 PM EDT FASTING:YES FASTING: YES Nehal Bailey [facility] BLOOD ORDERABLES Final Result [facility] [address], [place] [address] [facility] [facility] [employer] [place] [facility] [address] [place] [address] from Last 3 Months or Most Recently Relevant to Health Maintenance Insurance [facility] C3 Care Teams Hand Ii Blocker Relationship Specialty Start Date End Date Cassie Adam NP [address] [place] [id number] PCP - General Family Medicine 10/06/23
== END 2025-03-29 11:12 | disposition home or self-care (01) ==
LOC: HO.HGI 10:36
PROVIDERS: PCP Emergency Medicine; Visit Provider Nurse Practitioner Family
DX: R74.01 Elevation of levels of liver transaminase levels (principal); K76.0 Fatty (change of) liver, not elsewhere classified
CPT/HCPCS: 99204

== ENCOUNTER 2025-03-29 10:36 | Outpatient (REF) | payer MEDICAID, SELFPAY ==
[2025-03-29 12:10] LABS: Hematocrit 37.2 % (37.0-47.0); Hemoglobin 12.2 g/dl (12.0-16.0); Mean Corpuscular HGB Conc 32.8 g/dl (31.0-35.0); Mean Corpuscular Hemoglobin 28.8 pg (27.0-33.0); Mean Corpuscular Volume 87.9 fL (80.0-98.0); NRBC Abs Auto 0.000 X10*3/uL (0.0-0.012); NRBC Pct Auto 0.0 /100WBC (0.0-0.2); Platelet Count 273 X10*3/uL (160-400); Red Blood Count 4.23 X10*6/uL (4.20-5.50); White Blood Count 6.8 X10*3/uL (4.8-10.8)
[2025-03-29 12:17] LABS: INTERNATIONAL NORM RATIO 1.1 (0.9-1.1); Prothrombin Time 12.9 SEC (10.9-12.4)
[2025-03-29 12:40] LABS: Alanine Aminotransferase 113 U/L (0-31); Albumin Level 4.5 g/dL (3.5-5.0); Alkaline Phosphatase 81 U/L (39-117); Aspartate Amino Transferase 80 U/L (5-31); Total Protein 7.5 g/dL (6.5-8.0)
[2025-03-29 12:54] LABS: Ferritin 139 ng/mL (10-250)
[2025-03-29 12:59] LABS: HBS Num1 0.00 mIU/mL (0-7.99); HBc Num1 0.06 S/CO (0.00-0.79); HBsAGNum1 0.37 S/CO (0.00-0.99); Hepatitis A Antibody IgM 0.19 Index (0-0.79); Hepatitis B Surface Antigen Negative (Negative); ~HepC Num1 0.15 S/CO (0.00-0.79); ~Hepatitis A Antibody IgM Nonreactive (Nonreactive); ~Hepatitis B Surface Antibody NONREACTIVE (Nonreactive); ~Hepatitis C Antibody Nonreactive (Nonreactive)
[2025-04-04 03:14] LABS: FIB-ALT 79 U/L (6-29); FIB-Alpha-2-Macroglobulin 156 mg/dL (106-279); FIB-Apolipoprotein A1 140 mg/dL (101-198); FIB-GGT 19 U/L (3-55); FIB-Haptoglobin 173 mg/dL (43-212); FIB-Total Bilirubin 0.4 mg/dL (0.2-1.2); Liver Fibrosis Score 0.07; Liver Fibrosis Stage F0; Nec Inflam Act Grade A1-A2; Nec Inflam Act Score 0.38
== END 2025-03-29 10:37 | disposition home or self-care (01) ==
LOC: HO.LAB 10:36
PROVIDERS: PCP Emergency Medicine; Visit Provider Nurse Practitioner Family
DX: K21.9 Gastro-esophageal reflux disease without esophagitis (principal); R74.01 Elevation of levels of liver transaminase levels; R10.9 Unspecified abdominal pain; R79.89 Other specified abnormal findings of blood chemistry; K58.9 Irritable bowel syndrome, unspecified; K76.0 Fatty (change of) liver, not elsewhere classified; R74.8 Abnormal levels of other serum enzymes; Z11.59 Encounter for screening for other viral diseases; Z01.84 Encounter for antibody response examination
CPT/HCPCS: 36415; 80076; 81596; 82390; 82728; 85027; 85610; 86015; 86140; 86364; 86381; 86704; 86706; 86709; 86803; 87340; 99212